=== PATIENT | male | born 1960 | race Caucasian/White ===

== ENCOUNTER → 2022-09-20 10:28 | Outpatient (CLI) | payer OTHER, SELFPAY ==
--- NOTE | ~2022-09-20 | XR_ITS ---
Left Knee Technique: AP, lateral, and sunrise views were obtained. Clinical History: Pain Findings: No fracture or dislocation is seen. Osseous alignment is anatomic. Mild tricompartmental de generative change noted. Soft tissues are unremarkable. No joint effusion is seen. Impression: Mild tricompartmental degenerative change. Reviewed, dictated and finalized at [facility]. Impression: Mild tricompartmental degenerative change.
== END ==
PROVIDERS: PCP Family Medicine; Visit Provider Family Medicine
DX: M17.12 Unilateral primary osteoarthritis, left knee (principal)
CPT/HCPCS: 73562

== ENCOUNTER 2022-10-30 03:42 | Day surgery (SDC) | payer OTHER, SELFPAY ==
[2022-10-17 13:42] VITALS: BMI 27.5
--- NOTE | 2022-10-30 10:57 | WPDANESEPPF ---
Anes - Initial Pre Proc Eval Procedure: Operation Date: 10/30/22 11:30 Proposed Procedures p Screening Colonoscopy - Jose Manuel Cordova MD Date/Time: 10/30/22 10:57 Surgeon: Jose Manuel Cordova MD Pre Op Diagnosis: neoplasm screening Patient Data Age: 62 Gender: M Height: 1.65 m Weight: 75 kg Allergies Allergy/AdvReac Type Severity Reaction Status Date / Time No Known Allergies Allergy Verified 10/17/22 13:42 Home Medications Medication Instructions Recorded Confirmed Type sodium,potassium,mag sulfates 17.5 See Rx Instructions PO .COMPLEX 09/24/22 10/10/22 Rx gram-3.13 gram-1.6 gram oral soln #354 mL (Suprep Bowel Prep Kit) lisinopril 10 mg tablet 10 mg PO DAILY #30 tabs 10/02/22 10/17/22 Rx Patient hx anesthesia problems: none Family hx anesthesia problems: none Results Review: All pre-operative results and documents have been reviewed as part of the pre-operative evaluation. [facility] Past Medical History Medical History History of closed head injury HTN (hypertension) Surgical History Surgical History History of arthroscopic knee surgery Family History Family History Father Diabetes mellitus Lung cancer Social History Social History Smoking status: Never smoker Alcohol intake: current Drinks per week: 10 Substance use: current Substance use type: marijuana Other substance usage details: edibles and smoking Lack of Transportation: No Lack of Food: Never True Current Housing: I Have Housing Concerned About Future Housing: No Difficulty Paying Gas/Electric Bills: No Difficulty Paying for Meds: No Currently Unemployed: No Education: Master's Degree or Higher Difficulty w/ Childcare or Family Care: No Living arrangements: with family Additional living arrangements comments: lives with girlfriend Occupation/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 Informed Consent: The patient's anesthetic plan and its attendant risks and benefits were discussed with the patient/family/POA. Questions were solicited and answers provided to the satisfaction of the patient/family/POA.
[2022-10-30 11:03] VITALS: BP 146/79; PULSE 62; RESP 18; TEMP 36.2; BMI 27.1
--- NOTE | 2022-10-30 11:13 | P.HP_ITS ---
History of Present Illness History of Present Illness Consent: Risks, benefits, and alternatives have been discussed and questions answered. Patient agrees to proceed with procedure. Chief complaint: neoplasm screening Narrative: Anderson Ness is a 62 year old male Presents for screening colonoscopy. Patient's current weight appetite and bowel movements are normal. Patient denies abdominal pain. He has had no bleeding. Family history noncontributory. Patient has never had previous colonoscopy. Review of Systems Review of Systems: Review of systems noncontributory. [facility] Past Medical History Medical History History of closed head injury HTN (hypertension) Surgical History Surgical History History of arthroscopic knee surgery Family History Family History Father Diabetes mellitus Lung cancer Social History Social History Smoking status: Never smoker Alcohol intake: current Drinks per week: 10 Substance use: current Substance use type: marijuana Other substance usage details: edibles and smoking Lack of Transportation: No Lack of Food: Never True Current Housing: I Have Housing Concerned About Future Housing: No Difficulty Paying Gas/Electric Bills: No Difficulty Paying for Meds: No Currently Unemployed: No Education: Master's Degree or Higher Difficulty w/ Childcare or Family Care: No Living arrangements: with family Additional living arrangements comments: lives with girlfriend 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 Vital signs stable. HEENT exam is unremarkable. Patient is anicteric. Lungs are clear to auscultation and percussion. Heart is without murmur or extra sounds. Abdomen bowel sounds are present soft nontender with no organomegaly. Digital external rectal exam is normal. Assessment and Plan Assessment and plan (1) Encounter for screening colonoscopy: Code(s): Z12.11 - Encounter for screening for malignant neoplasm of colon Status: Acute Assessment and Plan: Patient presents today for screening colonoscopy. He appears to be at average risk for colon polyps. Further recommendations may be given after endoscopy.
[2022-10-30] MEDS: LACTATED RINGERS 1,000 ML 150 ML IV CONT (11:18)
[2022-10-30 11:53] VITALS: BP 82/46; PULSE 70; RESP 22; O2SAT 98
[2022-10-30 12:03] VITALS: BP 97/57; PULSE 67; RESP 22; O2SAT 98
[2022-10-30 12:13] VITALS: BP 123/80; PULSE 60; RESP 15; O2SAT 100
== END 2022-10-30 12:26 | disposition home or self-care (01) ==
PROVIDERS: PCP Family Medicine; Visit Provider Internal Medicine Gastroenterology
PROC: 0DJD8ZZ Inspection of Lower Intestinal Tract, Via Natural or Artificial Opening Endoscopic (ICD-10-PCS; CPT 45378; principal; 2022-10-30 11:30)
DX: Z12.11 Encounter for screening for malignant neoplasm of colon (principal); D12.2 Benign neoplasm of ascending colon; D12.8 Benign neoplasm of rectum; K64.8 Other hemorrhoids; I10 Essential (primary) hypertension; F12.90 Cannabis use, unspecified, uncomplicated
CPT/HCPCS: 45385; 88305; 88342; J2704; J7120

== ENCOUNTER → 2022-12-06 10:54 | Outpatient (CLI) | payer OTHER, SELFPAY ==
--- NOTE | ~2022-12-06 | MR_ITS ---
EXAMINATION: MR knee LT wo con DATE: 12/06/2022 11:34 INDICATION: Unilateral primary osteoarthritis, left knee. Left knee pain. TECHNIQUE: Magnetic resonance imaging (MRI) of the left knee was performed without intravenous contra st. Sequences included axial PD-weighted FS FSE, coronal PD-weighted FSE and PD-weighted FS FSE, sagi ttal PD-weighted FSE, and sagittal T2-weighted FS FSE. COMPARISON: Left knee radiograph 09/20/2022 FINDINGS: Medial compartment: There is a radial tear of posterior horn of medial meniscus. There are areas of deep partial thicknes s cartilage loss of femoral condyle and tibial condyle. There is full-thickness cartilage loss of fem oral condyle involving the central and medial articular surface. Osteophytes are noted. Lateral compartment: Lateral meniscus is normal. There is cartilage surface irregularity of femoral condyle and tibial con dyle. Osteophytes are noted. Patellofemoral compartment: There is shallow partial-thickness cartilage loss of patellar medial facet. There is shallow partial- thickness cartilage loss of trochlea. Osteophytes are noted. Ligaments and tendons: Anterior cruciate ligament is normal. There is a partial tear of posterior cruciate ligament contrast by thickening and increased signal intensity. Medial collateral ligament and lateral collateral liga ment complex are normal. There is mild patellar tendinopathy. Fluid: There is a moderate-sized knee joint effusion. There is trace fluid in a Cox's cyst. There is mild prepatellar and superficial infrapatellar bursitis. IMPRESSION: 1. Severe chondrosis of medial compartment and mild chondrosis of lateral and patellofemoral compartm ents. 2. Tear of medial meniscus. 3. Partial tear of posterior cruciate ligament. 4. Moderate-sized knee joint effusion. Reviewed, dictated and finalized at location [facility]. IMPRESSION: 1. Severe chondrosis of medial compartment and mild chondrosis of lateral and p atellofemoral compartments. 2. Tear of medial meniscus. 3. Partial tear of posterior cruciate ligament. 4. Moderate-sized knee joint effusion.
== END ==
PROVIDERS: PCP Family Medicine; Visit Provider Nurse Practitioner
DX: M22.42 Chondromalacia patellae, left knee (principal); M25.462 Effusion, left knee; S83.522A Sprain of posterior cruciate ligament of left knee, initial encounter; S83.242A Other tear of medial meniscus, current injury, left knee, initial encounter
CPT/HCPCS: 73721

== ENCOUNTER 2024-04-13 11:56 | Outpatient (CLI) | payer OTHER, SELFPAY ==
--- NOTE | 2024-04-13 13:00 | ECG_ITS ---
Test Date: 2024-04-13 13:13:49 Measurements Intervals [place] Rate: 61 P: 11 SC: 174 QRS: -20 QRSD: 97 T: 13 QT: 398 QTc: 404 Interpretive Statements SINUS RHYTHM WARNING: DATA QUALITY MAY AFFECT INTERPRETATION No previous ECG available for comparison Electronically Signed On 04-14-2024 15:20:38 LEARNING DESIGNER by Funmilayo Day M.D.
[2024-04-13 13:49] LABS: Basophils Absolute Auto 0.1 K/mm3 (0.0-0.1); Basophils Percent Auto 0.9 % (0.2-1.2); Eosinophils Absolute Auto 0.2 K/mm3 (0-0.3); Eosinophils Percent Auto 2.8 % (0-4.4); Hematocrit 42.9 % (42.0-52.0); Hemoglobin 14.6 g/dL (14.0-18.0); Immature Granulocyte Absolute 0.02 K/mm3 (0.00-0.031); Immature Granulocyte Percent A 0.3 % (0-0.5); Mean Corpuscular Hemoglobin 30.5 pg (26-34); Mean Corpuscular Volume 89.6 fl (80-100); Mean Platelet Volume 10.2 fl (7.4-10.4); Monocytes Absolute Auto 0.8 K/mm3 (0.1-0.6); Monocytes Percent Auto 10.5 % (2.6-8.5); Neutrophils Absolute Auto 4.3 K/mm3 (1.3-6.7); Neutrophils Percent Auto 58.5 % (45.5-73.1); Platelet Count Result 314 k/mm3 (150-375); Red Blood Count 4.79 M/mm3 (4.6-6.20); Red Cell Distribution Width 12.6 % (11.5-14.5); White Blood Count 7.4 K/mm3 (4.5-10.0)
[2024-04-13 13:58] LABS: Albumin Level 4.6 g/dL (3.5-5.1); Anion Gap 5 mmol/L (4-12); Blood Urea Nitrogen 12 mg/dL (9-20); Calcium 9.4 mg/dL (8.4-10.2); Carbon Dioxide 28 mmol/L (22-30); Chloride 106 mmol/L (98-107); Estimated Glomerular Filt Rate > 60; Glucose 99 mg/dL (65-110); Sodium 139 mmol/L (137-145)
[2024-04-13 14:03] LABS: Urine Cotinine NEGATIVE
== END 2024-04-13 11:57 | disposition home or self-care (01) ==
LOC: ANHSURGERY 12:14
PROVIDERS: PCP Family Medicine; Visit Provider Orthopaedic Surgery
DX: Z01.818 Encounter for other preprocedural examination (principal); M17.12 Unilateral primary osteoarthritis, left knee; Z79.899 Other long term (current) drug therapy
CPT/HCPCS: 80048; 80307; 82040; 83036; 85025; 87081; 87181; 93005

== ENCOUNTER 2024-05-05 00:43 | Day surgery (SDC) | payer OTHER, SELFPAY ==
--- NOTE | 2024-04-13 11:58 | PC.NURSE ---
Report to the Outpatient Waiting Room, entrance under the green pavilion located off [facility], at time _6 am on date _05/05/24 . Planned Procedure Time: __7:30 am .? Time changes happen often and if your time is changed the preop area will call you the afternoon before. - You and your visitor will be asked to self-screen and do not enter if you have any COVID symptoms. Please call surgeon if you need to reschedule. - A mask is optional within the hospital at this time. Patients may have clear liquids (water, carbonated beverages, clear teas, apple juice) until 3 hours prior to surgery( 4:30 am) with a maximum of 20 ounces. - No food from midnight until time of surgery and no smoking. This includes no chewing gum, candy or mints. Take only the following medications with a SIP of water on the morning of surgery: ____NONE DO NOT STOP ANY OF YOUR OTHER PRESCRIPTION MEDICATIONS PRIOR TO SURGERY EXCEPT THE FOLLOWING Medications to discontinue per physician NONE Please no make-up, nail armenian, hairspray, perfume, deodorant, or body powder the day of surgery.? No jewelry (including any body piercings) or valuables the day of surgery, leave them at home.? Please take a shower or bath the night before, or the morning of, surgery with an antibacterial soap.? Wear comfortable, loose fitting clothing.? Children are encouraged to wear pajamas. - Jewelry must be removed prior to entering the operating room.? Rings and piercings that are not removed may be cut off. - The hospital will not accept responsibility for valuables.? - Please leave all valuables, including medications, at home the day of surgery. If you are going home after surgery, a licensed compactor driver must drive you home.? - NO public transportation without another adult if you receive anesthesia. - We recommend that an adult stay with you for 24 hours following discharge. - We also recommend that you do not drive, make important decision, drink alcoholic beverages, or take any drugs that were not prescribed by your health care provider for at least 24 hours after your discharge time. Follow any additional instructions given to you from your surgeon. verbal and written instructions given to __PATIENT and asked if any additional questions and then verbalized understanding. Patient advised to call surgeon office or pre surgery nurse liaison [phone] if any additional questions.
[2024-04-13 12:19] VITALS: BMI 30.4
[2024-04-13 12:58] VITALS: BP 144/85; PULSE 66; RESP 18; TEMP 37.2; O2SAT 100
--- NOTE | 2024-05-04 11:18 | PM.IMHP ---
H&P: HPI History of Present Illness Date/Time: 05/04/24 11:18 Chief Complaint: Left knee DJD Narrative: 61-year-old male who presents today for a left total knee arthroplasty. Patient has been having symptoms in the knee for several years. He had cortisone injection in January of last year which did give him some benefit. He was taking meloxicam 15 mg daily but noticed and elevation his blood pressure and decided to stop taking the meloxicam. Does take Tylenol for pain. Patient has moderately severe medial compartment osteoarthritis in the left knee. He feels that he is having significant symptoms on a regular basis and would rather proceed with total knee arthroplasty at this point rather than continue nonsurgical treatment. Review of Systems Review of Systems: All systems reviewed & are unremarkable except as noted in HPI and below PMFSH Past Medical History Medical History HTN (hypertension) History of closed head injury Surgical History Surgical History History of arthroscopic knee surgery Family History Family History Father Diabetes mellitus Lung cancer Sibling No problems noted. Sibling , OD No problems noted. Social History Social History Smoking status: Never smoker Second hand tobacco smoke exposure: No Additional smoking assessment comments: DENIES ANY FORM OF TOBACCO USE Alcohol intake: current Drinks per week: 10 Alcohol use details: BEER,WINE, MIXED DRINKS Substance use: current Substance use type: marijuana Other substance usage details: edibles and smoking Last use: 04/12/24 Current Housing: Decline to Answer Concerned About Future Housing: Decline to Answer Difficulty Paying Gas/Electric Bills: Decline to Answer Difficulty Paying for Meds: Decline to Answer Currently Unemployed: Decline to Answer Education: Decline to Answer Difficulty w/ Childcare or Family Care: Decline to Answer Living arrangements: alone Occupation/Education: retired 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 He is 5 ft 4 177 lb BMI is 30.4. He walks with a slight limp. Range of motion left knee is from 5-100 degrees. Hip range of motion is full without discomfort. There is no effusion in the knee. Normal stability in the knee. Moderate tenderness over the medial joint line to palpation. Negative Stinchfield maneuver. Normal quad strength. There is no edema in lower extremities. 2+ dorsalis pedis and posterior tibial artery pulse palpable. Skin is all normal. Resp: Auscultation: clear to auscultation bilaterally Cardio: Rate: regular rate Rhythm: regular rhythm Assessment and Plan Assessment and plan (1) Primary osteoarthritis of left knee: Code(s): M17.12 - Unilateral primary osteoarthritis, left knee Status: Acute Assessment and Plan: 61-year-old male who has moderately severe medial compartment osteoarthritis left knee. He has symptoms on a daily basis. He did get some benefit from the cortisone injection. Anti-inflammatories are affecting his blood pressure and therefore he has stopped taking them. This point feels he is ready proceed with total knee arthroplasty rather than continue nonsurgical treatment. Surgical procedures well as risks and complications were discussed in detail and all questions were answered proceed. He will see his primary care doctor for pre-surgical clearance. Hemoglobin preoperatively is 14.6 and platelets were 314. Chem panel was all within normal limits creatinine 0.70. Nasal swab did grow oxacillin sensitive Staph aureus and he has been in the colonizing.
[2024-05-05] VITALS (14 sets, daily range): BP systolic 104–154; BP diastolic 64–92; PULSE 68–96; RESP 10–20; TEMP 36.4–37.1; O2SAT 94–100
--- NOTE | ~2024-05-05 | XR_ITS ---
EXAMINATION: [id number] DATE: 05/05/2024 12:39 INDICATION: Left knee arthroplasty. Postop. TECHNIQUE: 2 views of left knee were obtained. COMPARISON: Left knee radiographs 02/03/2024 FINDINGS: There is a total left knee arthroplasty without patellar resurfacing in near-anatomic align ment. No fracture. There is gas in the knee joint and soft tissues, consistent with recent surgery. IMPRESSION: 1. Total left knee arthroplasty in near-anatomic alignment. Reviewed, dictated and finalized at location A. [employer]
[2024-05-05] MEDS: ACETAMINOPHEN 500 MG TABLET 1000 MG PO (06:50)
[2024-05-05] MEDS: LACTATED RINGERS 1,000 ML 30 ML IV CONT ×2 (06:55→12:25)
[2024-05-05] MEDS: TRANEXAMIC ACID 1,000MG/ISO100 1,000 MG/100 ML BAG 200 MG IVPB (06:55)
[2024-05-05] MEDS: VANCOMYCIN 1,250 MG/NS 250 ML BAG 166.67 MG IVPB (07:12)
--- NOTE | 2024-05-05 08:02 | WPDHPUPDATE1 ---
History and Physical Update Update Date/Time: 05/05/24 08:02 History and Physical has been reviewed, including an updated exam of the patient. There are NO changes in the patient's condition. Risks, benefits, and alternatives have been discussed and questions answered. Patient agrees to proceed with procedure.
--- NOTE | 2024-05-05 08:22 | P.PNAN_ITS ---
Anes - Initial Pre Proc Eval Procedure: Operation Date: 05/05/24 08:30 Proposed Procedures p Left Total Knee Arthroplasty - Rosalio Frazier MD Date/Time: 05/05/24 08:22 Surgeon: Rosalio Frazier MD Pre Op Diagnosis: oa left knee Patient Data Age: 63 Gender: M Height: 1.63 m Weight: 79.5 kg Last Vital Signs Temp 97.9 F 05/05/24 06:41 Pulse 77 05/05/24 06:41 Resp 18 05/05/24 06:41 BP 137/82 05/05/24 06:41 Pulse Ox 99 05/05/24 06:41 O2 Del Method Room Air 05/05/24 06:41 Allergies Allergy/AdvReac Type Severity Reaction Status Date / Time No Known Allergies Allergy Verified 05/05/24 07:05 Home Medications ?Medication ?Instructions ?Recorded ?Confirmed ?Type lisinopril 40 mg tablet 40 mg PO DAILY #30 tabs 03/23/24 05/05/24 Rx Laboratory Tests 05/05/24 06:44 Blood Type O Positive Antibody Screen Negative Patient hx anesthesia problems: none Family hx anesthesia problems: none Results Review: All pre-operative results and documents have been reviewed as part of the pre- operative evaluation. [facility] Past Medical History Medical History HTN (hypertension) History of closed head injury Surgical History Surgical History History of arthroscopic knee surgery Family History Family History Father Diabetes mellitus Lung cancer Sibling No problems noted. Sibling , OD No problems noted. Social History Social History Smoking status: Never smoker Second hand tobacco smoke exposure: No Additional smoking assessment comments: DENIES ANY FORM OF TOBACCO USE Alcohol intake: current Drinks per week: 10 Alcohol use details: BEER,WINE, MIXED DRINKS Substance use: current Substance use type: marijuana Other substance usage details: edibles and smoking Last use: 04/12/24 Current Housing: Decline to Answer Concerned About Future Housing: Decline to Answer Difficulty Paying Gas/Electric Bills: Decline to Answer Difficulty Paying for Meds: Decline to Answer Currently Unemployed: Decline to Answer Education: Decline to Answer Difficulty w/ Childcare or Family Care: Decline to Answer Living arrangements: alone Occupation/Education: retired 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 Informed Consent: The patient's anesthetic plan and its attendant risks and benefits were discussed with the patient/family/POA. Questions were solicited and answers provided to the satisfaction of the patient/family/POA.
[2024-05-05] MEDS: ceFAZolin 2 GM/D5W 50 ML 2 GM/50 ML BAG IVPB ×2 (08:30→17:23)
[2024-05-05] MEDS: ceFAZolin SODIUM 1 GM VIAL 3 GM IRRIGATION (09:14)
[2024-05-05] MEDS: SODIUM CHLORIDE 0.9% IV 37.7 ML, MORPHINE SULFATE INJ (*CRX) 2 MG, ROPivacaine HCL 1% 2... INFILTRATE (09:33)
[2024-05-05] MEDS: ceFAZolin SODIUM 1 GM VIAL 2 GM IV PUSH (11:23)
[2024-05-05] MEDS: TRANEXAMIC ACID 1,000 MG/10 ML AMPUL 1000 MG IV PUSH (11:24)
[2024-05-05] MEDS: KETOROLAC 15 MG/ML VIAL (*BKC) IV PUSH ×2 (11:26→17:24)
--- NOTE | 2024-05-05 12:20 | P.OP_ITS ---
Procedure Note - Detailed Date of Procedure 05/05/24 Pre-op Diagnosis oa left knee Post-op Diagnosis Same Procedure Performed Left total knee arthroplasty Surgeon Rosalio Frazier MD Ergonomics Technician Fiona Anesthesia General Description of Procedure patient was brought to the operating room and general anesthesia was administered. He received 2 g Ancef weight based vancomycin 1 g of TXA preoperatively. The left knee was prepped draped usual fashion. Under anesthesia I can flex him to 135 but he had a fixed 8 degree flexion contracture. Limb was exsanguinated tourniquet elevated to 250 mmHg. A 7 in longitudinal midline incision was made and a standard parapatellar arthrotomy utilized. Infrapatellar it is fat pad partially excised. Quadriceps synovectomy performed. Anteromedial osteophytes removed from the tibial plateau. The patellar articular cartilage was normal. There were small osteophytes inferiorly and medially which were trimmed and a minimal lateral facetectomy was performed. I felt the patella was appropriate for non resurfacing. A guide lourdes was inserted on femoral canal after aspiration of canal contents using the 5 degree valgus cutting bushing 9 mm of bone removed the distal femur. Next the tibial plateau was cut. We attempted to make a skim cut off the low point of the medial tibial plateau which removed about 10 mm laterally. He had a fairly prominent varus slope to the tibial plateau. Meniscal remnants were excised and the PCL recessed. Flexion gap measured 11 mm laterally in 7 mm medially and I did not feel we had enough gap for 10 insert. An additional mm bone was removed from the tibial plateau at this time. This gave us 8 mm flexion gap medially 12 laterally and alignment of the cut was confirmed to be perpendicular to the axis of the On the sagittal plane and in about 1 degree of varus on the coronal plane. Femoral sizing guide was applied to distal femur set at 5? of external rotation which matched [place] line. Posterior referencing pinholes were placed and the femur was cut to the size 62.5 vanguard. This fit line to line on the anterior cortex and line to line medial to lateral. The 10 CR insert was inserted at 90? of flexion and we had symmetric play of 1-2 mm medially laterally. The knee lacked about 20? of extension and was extremely tight medially with some play laterally. Medial tibial osteophyte was removed extending along the posteromedial aspect of the tibia but no capsular release performed yet. Posterior capsule was released from the distal femur because of his preop flexion contracture. The tibia was sized to the vanguard 71 which fit line to line posterolateral to anteromedial at proper rotation. The distal femoral alignment was assessed with the 5 degree wing and intramedullary lourdes and I felt that we were at about 5.5? of valgus. I elected to remove 2 mm of bone from the distal medial femoral condyle 1 from the lateral side. The transition step was smooth and this placed at a us at about 4.5? of valgus. There were no posterior femoral osteophytes to remove this time. We then trialed with the 10 insert.The knee now lacked about 5? of extension wiith no play medially with valgus stress and 2 mm laterally. There was appropriate anterior posterior stability 90? with a mm of medial and lateral opening at 90?. Therefore posteromedial capsular release was performed off the tibial plateau removing bone to the level of the tray. On retrialing, the knee came out to 3? from full extension now with between 1 and 2 mm of medial opening to valgus stress at 3?. Therefore, I elected to revisit the posterior capsule release and complete release was achieved from the medial head of the gastrocnemius tendon to the lateral head. With this done the knee had just a barely positive bounce trialing with the 10 insert. However with the arthrotomy towel clipped there was 3 or 4? of residual flexion and no play medially on valgus stress. Therefore an additional 1 mm bone was removed from the distal femur both medially and laterally. For 4.5? of anatomic axis valgus was confirmed. On retrialing the knee came out to full extension with negative bounce. There was now 2 mm of medial opening 3 mm of lateral opening. With the arthrotomy towel clipped there was 1 mm of medial opening on valgus stress and perhaps 1 degree of residual lack of flexion under the weight of gravity and I could easily extend him all the way straight with gentle pressure. there was normal varus valgus stability in all positions at this time. Range of motion so it central patellar tracking. Lug holes were drilled for femoral component. we had put the tourniquet down at 88 minutes and at this time the limb was exsanguinated again and tourniquet elevated to 200 mmHg. Step drill was used in the distal femoral and proximal tibial bone surfaces for cement interdigitation. Two batches of methylmethacrylate were mixed 1 with gentamicin powder cemented medial with the medially applied the 71 tibia and the 62.5 left CR femoral components. Cement applied the tibial plateau pressurized tibial component placed a cement applied the femur the femoral component fully seated knee brought into extension with the 11 mm 5 1 insert for pressurization of the cement. Tourniquet was released. Total tourniquet times approximately 110 minutes. After cement curing, excess cement was sought for removed hemostasis was achieved. We trialed with the 10 insert and found the same stability findings as above and the 10 insert was placed without difficulty locked with a locking pin full extension with negative bounce 2 mm medial wall 3 mm lateral opening in extension. [place] flexion to 135. Local anesthetic cocktail was injected into the periarticular soft tissues. Arthrotomy was closed with 2. Vicryl is a 1. Unidirectional barbed Stratafix suture. At this point there was barely positive bounce and in extension the knee opened up 1 mm Medially. Skin was closed with 2 subcutaneous Vicryl and 3-0 subcuticular Monocryl and glue. EBL 300 cc fluid is 2 additional g of Ancef given time wound closure 1 of TXA. Tolerated the procedure well was transferred postop recovery room in stable condition. [facility] Billing Surgery - Charge Forward: Surgery Billing ( Left total knee arthroplasty)
--- NOTE | 2024-05-05 12:28 | PM.OP ---
Procedure Note - Brief Procedure Note - Brief Date of procedure: 05/05/24 oa left knee Procedure performed: Left total knee arthroplasty Surgeon: CADY Cox Findings: 63-year-old male who underwent left total knee arthroplasty on 05/05. I was involved in the procedure including positioning the patient on the OR table in 1st assisting through the time surgery. Total time spent was 3-1/2 hours
[2024-05-05] MEDS: fentaNYL CITRATE INJ (*CRX) 100 MCG/2 ML VIAL 25 MCG IV PUSH (13:48)
[2024-05-05] MEDS: SENNA/DOCUSATE SODIUM TABLET 2 TAB PO (17:23)
[2024-05-05] MEDS: ACETAMINOPHEN 325 MG TABLET 650 MG PO ×2 (17:23→21:48)
[2024-05-05] MEDS: oxyCODONE HCL (*CRX) 5 MG TAB IR PO ×2 (17:24→21:48)
[2024-05-05] MEDS: VANCOMYCIN 1,000 MG/NS 250 ML 1,000 MG/250 ML BAG 250 MG IVPB (21:48)
[2024-05-05] MEDS: FAMOTIDINE 20 MG TABLET PO (21:48)
[2024-05-06] MEDS: KETOROLAC 15 MG/ML VIAL (*BKC) IV PUSH (00:40)
[2024-05-06] MEDS: ceFAZolin 2 GM/D5W 50 ML 2 GM/50 ML BAG IVPB ×2 (00:41→08:36)
[2024-05-06] MEDS: oxyCODONE HCL (*CRX) 5 MG TAB IR PO ×4 (01:15→12:19)
[2024-05-06] MEDS: ACETAMINOPHEN 325 MG TABLET 650 MG PO ×3 (01:15→08:31)
[2024-05-06 03:55] VITALS: BP 108/68; PULSE 70; RESP 20; TEMP 37; O2SAT 97
[2024-05-06 06:59] LABS: Basophils Percent Auto 0.3 % (0.2-1.2); Eosinophils Percent Auto 0.2 % (0-4.4); Hematocrit 32.2 % (42.0-52.0); Hemoglobin 10.6 g/dL (14.0-18.0); Immature Granulocyte Absolute 0.03 K/mm3 (0.00-0.031); Immature Granulocyte Percent A 0.3 % (0-0.5); Lymphocytes Absolute Auto 2.47 K/mm3 (0.9-3.2); Lymphocytes Percent Auto 22.4 % (18.3-44.2); Mean Corpuscular HGB Conc 32.9 g/dl (32-36); Mean Corpuscular Volume 91.2 fl (80-100); Mean Platelet Volume 10.3 fl (7.4-10.4); Monocytes Absolute Auto 1.6 K/mm3 (0.1-0.6); Monocytes Percent Auto 14.8 % (2.6-8.5); Neutrophils Absolute Auto 6.9 K/mm3 (1.3-6.7); Platelet Count Result 231 k/mm3 (150-375); Red Blood Count 3.53 M/mm3 (4.6-6.20); Red Cell Distribution Width 12.7 % (11.5-14.5)
[2024-05-06 07:16] LABS: Anion Gap 6 mmol/L (4-12); Blood Urea Nitrogen 12 mg/dL (9-20); Calcium 8.5 mg/dL (8.4-10.2); Carbon Dioxide 27 mmol/L (22-30); Chloride 105 mmol/L (98-107); Estimated CRCL calculation 91 ml/min; Estimated Glomerular Filt Rate > 60; Glucose 99 mg/dL (65-110); Potassium 3.9 mmol/L (3.4-5.0); Sodium 138 mmol/L (137-145)
--- NOTE | 2024-05-06 07:31 | P.PNOP_ITS ---
Subjective Subjective Date/Time Seen: 05/06/24 07:31 Interval history: Postop day 1 patient is alert. He is afebrile vital signs are stable. Dressing is dry and intact. He was up walking yesterday with physical therapy and was comfortable. Pain remains well tolerated this morning. Neurovascularly he is intact. Morning labs are noted. Will plan have the patient with therapy this morning and if he continues to do to be discharged home late this morning Objective Data Vital Signs Vital Signs: Vital Signs - 24 hr 05/05/24 12:25 05/05/24 12:40 05/05/24 12:55 Temperature 98.7 F Pulse Rate 96 88 85 Respiratory Rate 10 L 14 14 Blood Pressure 146/80 H 154/78 H 154/92 H Pulse Oximetry 100 100 100 Oxygen Delivery Simple Face Mask Simple Face Mask Room Air Oxygen Flow Rate 10 10 05/05/24 13:10 05/05/24 13:25 05/05/24 13:40 Temperature Pulse Rate 86 87 83 Respiratory Rate 12 18 16 Blood Pressure 149/82 H 142/81 H 148/83 H Pulse Oximetry 98 99 97 Oxygen Delivery Room Air Room Air Room Air Oxygen Flow Rate 05/05/24 13:55 05/05/24 14:10 05/05/24 14:25 Temperature 98.5 F 98.6 F Pulse Rate 84 80 76 Respiratory Rate 16 18 17 Blood Pressure 141/83 H 136/77 130/76 Pulse Oximetry 97 95 95 Oxygen Delivery Room Air Oxygen Flow Rate 05/05/24 14:55 05/05/24 14:58 05/05/24 15:28 Temperature 97.6 F Pulse Rate 76 Respiratory Rate 17 Blood Pressure 133/75 Pulse Oximetry 94 Oxygen Delivery Room Air Room Air Oxygen Flow Rate 05/05/24 15:55 05/05/24 17:08 05/05/24 19:55 Temperature 97.6 F 98.7 F Pulse Rate 74 83 Respiratory Rate 17 20 Blood Pressure 130/78 119/71 Pulse Oximetry 99 97 Oxygen Delivery Room Air Oxygen Flow Rate 05/05/24 20:00 05/05/24 23:55 05/06/24 03:55 Temperature 98.1 F 98.6 F Pulse Rate 68 70 Respiratory Rate 20 20 Blood Pressure 104/64 108/68 Pulse Oximetry 97 97 Oxygen Delivery Room Air Oxygen Flow Rate Intake/Output Intake/Output: Intake & Output 05/03/24 05/04/24 05/05/24 05/06/24 23:59 23:59 23:59 23:59 Intake Total 637 150 Balance 637 150 Meds/Results Medications: Active Medications Generic Name Dose Route Start Last Admin Trade Name Freq PRN Reason Stop Dose Admin Acetaminophen 650 mg 05/05/24 14:00 05/06/24 05:38 Acetaminophen 325 Mg Tablet PO 650 mg Q4H HECTOR Administration Apixaban 2.5 mg 05/06/24 09:00 Apixaban 2.5 Mg Tablet PO 05/17/24 21:01 Q12HR HECTOR Celecoxib 200 mg 05/06/24 08:00 Celecoxib 200 Mg Capsule PO DAILY@0800 HECTOR Cephalexin HCl 500 mg 05/06/24 12:00 Cephalexin 500 Mg Capsule PO Q6HR HECTOR Diphenhydramine HCl 25 mg 05/05/24 14:10 Diphenhydramine Hcl Inj 50 Mg/Ml Vial IV PUSH Q6H PRN Itching Famotidine 20 mg 05/05/24 21:00 05/05/24 21:48 Famotidine 20 Mg Tablet PO 20 mg Q12HR HECTOR Administration Cefazolin Sodium 2 gm in 50 mls @ 100 mls/hr 05/05/24 17:00 05/06/24 00:41 Ancef 2 Gm/D5w 50 Ml IVPB 05/06/24 09:29 100 mls/hr Q8H HECTOR Administration Vancomycin HCl 1,000 mg in 250 mls @ 250 mls/hr 05/05/24 20:00 05/05/24 21:48 Vancomycin 1,000 Mg/Ns 250 Ml IVPB 05/06/24 08:59 250 mls/hr Q12H HECTOR Administration Morphine Sulfate 2 mg 05/05/24 14:10 Morphine Sulfate (*Crx) 2 Mg/Ml Inj IV PUSH Q2H PRN Breakthrough Pain Rated 4-6 or NPO Naloxone HCl 0.1 mg 05/05/24 14:10 Naloxone Hcl 0.4 Mg/Ml Vial IV PUSH Q2M PRN Opiate Reversal Ondansetron HCl 4 mg 05/05/24 14:10 Ondansetron Inj 4 Mg/2 Ml Vial IV PUSH Q4H PRN Nausea And Vomiting Oxycodone HCl 5 mg 05/05/24 14:00 05/06/24 05:39 Oxycodone Hcl (*Crx) 5 Mg Tab Ir PO 5 mg Q4H HECTOR Administration Oxycodone HCl 5 mg 05/05/24 14:10 Oxycodone Hcl (*Crx) 5 Mg Tab Ir PO Q4H PRN Pain Rated 7-10 Polyethylene Glycol 17 gm 05/06/24 09:00 Polyethylene Glycol 3350 17 Gm Powd.Pack PO QAM HECTOR Senna/Docusate Sodium 2 tab 05/05/24 17:00 05/05/24 17:23 Senna/Docusate Sodium Tablet PO 2 tab BID HECTOR Administration Radiology Results: ITS Impressions Knee X-Ray 05/05/24 12:45 IMPRESSION: 1. Total left knee arthroplasty in near-anatomic alignment. Labs Labs: Laboratory Results - last 24 hr 05/05/24 05/06/24 06:44 06:50 WBC 11.0 H RBC 3.53 L Hgb 10.6 L D Hct 32.2 L MCV 91.2 MCH 30.0 MCHC 32.9 RDW 12.7 Plt Count 231 MPV 10.3 Immature Gran % (Auto) 0.3 Neut % (Auto) 62.0 Lymph % (Auto) 22.4 [place] % (Auto) 14.8 H Eos % (Auto) 0.2 Baso % (Auto) 0.3 Lymph # (Auto) 2.47 [place] # (Auto) 1.6 H Eos # (Auto) 0.0 Baso # (Auto) 0.0 Abs Immat Gran (auto) 0.03 Absolute Neuts (auto) 6.9 H Absolute Nucleated RBC 0.000 Nucleated RBC % 0.0 Sodium 138 Potassium 3.9 Chloride 105 Carbon Dioxide 27 Anion Gap 6 BUN 12 Creatinine 0.69 L Estim Creat Clear Calc 91 Estimated GFR > 60 Glucose 99 Calcium 8.5 Antibody Screen Negative
--- NOTE | 2024-05-06 07:35 | PM.DS ---
DS: Admitting Diagnosis Discharge Date 05/06 Admitting Diagnosis Left knee DJD DS: Discharge Diagnosis Discharge Diagnosis (1) Primary osteoarthritis of left knee: Code(s): M17.12 - Unilateral primary osteoarthritis, left knee Status: Acute DS: Summary Hospital Course Hospital Course: 63-year-old male who underwent left total knee arthroplasty on 05/05. Underwent the procedure without complications. Postoperatively he has been afebrile vital signs are stable. Was up walking with physical therapy the day of surgery. Pain is well controlled. He is on scheduled Tylenol every 4 hours and oxycodone 5 mg. He is also on Celebrex 200 mg a day. He is on Eliquis for DVT prophylaxis. Postop day 1 patient was alert. Dressing was dry and intact. Neurovascularly was intact. He is able do a straight leg raise in the bed. He will be discharged home on 05/06. Patient is stable. He will go home with a 10 day course of Keflex due to his nasal swab going oxacillin sensitive Staph aureus. He will also go home with Senokot and MiraLax. Patient had a history increased blood pressure with diclofenac. He is going to be on the Celebrex and is going to monitor his blood pressure at home while taking this if there is any changes he will contact his primary care doctor. Patient was advised when he does go home to keep the leg elevated prevent swelling but do his exercises on an hourly basis. He has any questions or concerns he is to call the office. Time Spent with Patient Time attestation: Total time spent providing and/or coordinating discharge services: DS: Data Data Completed and Pending Labs on day of discharge: Labs from last 24 hours 05/06/24 05/05/24 06:50 06:44 WBC 11.0 H RBC 3.53 L Hgb 10.6 L D Hct 32.2 L MCV 91.2 MCH 30.0 MCHC 32.9 RDW 12.7 Plt Count 231 MPV 10.3 Immature Gran % (Auto) 0.3 Neut % (Auto) 62.0 Lymph % (Auto) 22.4 [place] % (Auto) 14.8 H Eos % (Auto) 0.2 Baso % (Auto) 0.3 Lymph # (Auto) 2.47 [place] # (Auto) 1.6 H Eos # (Auto) 0.0 Baso # (Auto) 0.0 Abs Immat Gran (auto) 0.03 Absolute Neuts (auto) 6.9 H Absolute Nucleated RBC 0.000 Nucleated RBC % 0.0 Sodium 138 Potassium 3.9 Chloride 105 Carbon Dioxide 27 Anion Gap 6 BUN 12 Creatinine 0.69 L Estim Creat Clear Calc 91 Estimated GFR > 60 Glucose 99 Calcium 8.5 Antibody Screen Negative Discharge Plan Discharge Patient Disposition: Home, Self-Care Discharge Instructions: ROSALIO FRAZIER M.D [facility] [address] [address] [place] [address] POST-OPERATIVE DISCHARGE INSTRUCTIONS TOTAL KNEE ARTHROPLASTY 1. When resting, do not rest in the chair.When resting, lie on your back, with back flat on the couch or bed, with leg elevated above heart to minimize swelling. You may put a pillow under your head. . Significant swelling could indicate a blood clot and if this occurs call the office (or go to the ER) to have a venous ultrasound. Therefore, do not rest in a chair. 2. At least five times a day spend several minutes stretching your knee into flexion while sitting in the chair and also stretching your knee out straight The abilities to bend your knee fully and straighten your knee fully are two most important knee functions to focus on during your recovery. 3. It is ok to sit in chair to eat, use the toilet and receive a guest and to do your stretching exercises, but, sitting in a chair will cause your leg to swell. Therefore, avoid additional time sitting in the chair. and don't rest in the chair. 4. Wound Care: Nursing will give you an additional Mepilex/Aquacell dressing at the time of discharge. Patient to remove the dressing and apply a new Mepilex/Aquacell dressing at home 7 days after surgery and leave the dressing on until seen in office. It is normal to see a small amount of blood on the silver pad of the Mepilex/Aquacell dressing. Its designed to hold small spots of blood. However, if the blood reaches the edge of the pad up to the boarder of the clear membrane that surrounds the pad, the pad is saturated and the Mepilex/Aqucell dressing should be removed and a new Mepilex/Aquacell dressing should be applied. 5. May shower with a Mepilex/Aquacell dressing in place.The water will run off the dressing. 6. Unless you are told otherwise, you may put full weight on your operated leg. Use a walker for balance and practice walking as normally as you can, ideally for a few minutes every hour while you are awake. 7. I would advise against putting ice packs on your knee incision. Ice constricts blood flow which can impar healing of the knee incision. IMPORTANT: Remember not to sit in the chair for more than 30 minutes at a time. As a rule, during the first 14 days after surgery, only sit in the chair to work on the chair knee bending stretch exercise, for meals or for use of the restroom. Sitting in the chair promotes significant swelling in the knee and leg which will make your knee stiff and more painful and which simulates having a blood clot in the veins of the leg. If this type of significant diffuse swelling occurs, an ultrasound at the hospital will be necessary to rule out a blood clot. Be up walking around with the walker for a few minutes every hour while awake and then rest laying on your back on the couch or in bed with your leg elevated on cushions or pillows. Do not rest in the chair. Patient Language: Ukrainian Stand Alone Forms: General Discharge Instructions Follow-up/Referrals: Rosalio Frazier MD [Physician] - Keep Reg. Scheduled Appt. Discharge Medications: New acetaminophen 325 mg Tablet 650 mg PO Q4H Qty: 90 0RF celecoxib [Celebrex] 200 mg Capsule 200 mg PO DAILY@0800 Qty: 60 0RF sennosides-docusate sodium [Senokot-S] 8.6-50 mg Tablet 2 tab-cap PO BID Qty: 60 0RF cephalexin 500 mg Capsule 500 mg PO Q6HR Qty: 40 0RF Eliquis 2.5 mg Tablet 2.5 mg PO Q12HR Qty: 28 0RF polyethylene glycol 3350 [Miralax] 17 gram Powder In Packet 17 g PO QAM Qty: 30 0RF oxycodone 5 mg Tablet 5 mg PO Q4H PRN (Reason: pain) Qty: 40 0RF Continued lisinopril 40 mg tablet 40 mg PO DAILY Qty: 30 2RF
[2024-05-06 07:55] VITALS: BP 112/65; PULSE 71; RESP 18; TEMP 36.6; O2SAT 99
[2024-05-06] MEDS: SENNA/DOCUSATE SODIUM TABLET 2 TAB PO (08:30)
[2024-05-06] MEDS: CELECOXIB 200 MG CAPSULE PO (08:30)
[2024-05-06] MEDS: FAMOTIDINE 20 MG TABLET PO (08:31)
[2024-05-06] MEDS: APIXABAN 2.5 MG TABLET PO (08:31)
[2024-05-06] MEDS: VANCOMYCIN 1,000 MG/NS 250 ML 1,000 MG/250 ML BAG 250 MG IVPB (08:36)
--- NOTE | 2024-05-06 10:43 | P.PNAN_ITS ---
Anes - Prog Note Post-Op Date/Time: 05/06/24 10:43 Cardiovascular status: normal Respiratory status: normal Airway patency: baseline Mental status: baseline Post-Op hydration status: normal Vital Signs: Last Vital Signs Temp 97.8 F 05/06/24 07:55 Pulse 71 05/06/24 07:55 Resp 18 05/06/24 07:55 BP 112/65 05/06/24 07:55 Pulse Ox 99 05/06/24 07:55 O2 Del Method Room Air 05/05/24 20:00 O2 Flow Rate 10 05/05/24 12:40 Pain Score (VAS): 0/10 I/O: Intake & Output 05/05/24 05/06/24 05/06/24 23:59 07:59 15:59 Intake Total 537 200 240 Balance 537 200 240 Laboratory Tests 05/06/24 06:50 05/06/24 06:50 05/06/24 06:50 WBC 11.0 H RBC 3.53 L Hgb 10.6 L D Hct 32.2 L MCV 91.2 MCH 30.0 MCHC 32.9 RDW 12.7 Plt Count 231 MPV 10.3 Immature Gran % (Auto) 0.3 Neut % (Auto) 62.0 Lymph % (Auto) 22.4 [place] % (Auto) 14.8 H Eos % (Auto) 0.2 Baso % (Auto) 0.3 Lymph # (Auto) 2.47 [place] # (Auto) 1.6 H Eos # (Auto) 0.0 Baso # (Auto) 0.0 Abs Immat Gran (auto) 0.03 Absolute Neuts (auto) 6.9 H Absolute Nucleated RBC 0.000 Nucleated RBC % 0.0 Sodium 138 Potassium 3.9 Chloride 105 Carbon Dioxide 27 Anion Gap 6 BUN 12 Creatinine 0.69 L Estim Creat Clear Calc 91 Estimated GFR > 60 Glucose 99 Calcium 8.5 Post-procedural complaints: none Patient Feedback: Patient satisfied with anesthetic care.
[2024-05-06] MEDS: polyethylene glycoL 3350 17 GM POWD.PACK PO (12:00)
[2024-05-06] MEDS: CEPHALEXIN 500 MG CAPSULE PO (12:19)
--- OUTSIDE RECORDS SUMMARY | 2024-05-12 04:20 | XMS_ITS | Data Portability ---
Author Organization [place] [facility], Main Office Address [address] [place] [address] Care Team Providers Care Trestle Builder Name Role Phone JANETH STRICKLAND Primary Care Provider JANETH STRICKLAND Referring Provider [phone] Assessment Encounter Date Assessment Date Assessment LastModified by Organization Details LastModified Time 12/13/2022 12/13/2022 Impression: Patient has moderately severe medial compartment osteoarthritis left knee on the PA flexion Stork view which shows narrowing of medial joint space to about 1 mm. On the AP Stork view is joint spaces about 3 mm. He has pronounced loss of range of motion which has not substantially improved with physical therapy I think that his stiffness is due to mechanical incongruity at the knee joint is not likely to be overcome with further therapy. I have discussed with him that the surgical procedure that would be considered if he could not be improved with non operative strategies would be a total knee replacement. I think that is range of motion is too poor for a partial knee replacement to be very successful particularly the flexion contracture. We have discussed that at 62 years of age he has had a little bit higher risk for having failure of his knee replacement due to wear that necessitates revision surgery. However, if he cannot be improved with non operative strategies, he is limited enough that he would want to take that risk and proceed with knee replacement. He has not tried nonsteroidal anti-inflammatory medications. he denies any history of peptic ulcer disease, liver problems, or kidney problems but does note that he did have an elevated bilirubin level and we requested the testing that he had done on 09/13/2022 3 months ago which showed bilirubin of 2.4. Bilirubin in the urine was negative. ALT, AST, and alk-phos were within normal limits. I have discussed with him that the most effective nonsteroidal anti-inflammatory medication is diclofenac but it is metabolized by the liver and if he has underlying liver disease it would be best to choose a different 1. He states that he has cut back on his daily Alcohol consumption . I would be reasonable to check a new CMP. In the meantime I have prescribed meloxicam 15 mg daily. I have given him instruction she describing possible side effects of anti-inflammatory medication. I will see him back in 4 weeks assess his progress. If he gets excellent relief from meloxicam we would continue with that for the time being if not we could consider diclofenac if his bilirubin has returned to normal. Failing these, I would offer him total knee replacement. 45 minutes were spent in total care this patient more than half the time spent in ixdm-rb-achm care. [email or web address] Not available 12/13/2022 14:31:02 01/21/2023 01/21/2023 HPI: Patient returns. He is here for follow-up of his left knee osteoarthritis. He took the meloxicam and he thinks that it did help quite a bit. He ran out about a week ago. He is getting a little bit more stiffness and pain in the knee. He has moderately severe medial compartment osteoarthritis on the PA flexion view. He did get blood work done after last time we saw him. His bilirubin is still elevated at 2.0. The rest of his liver enzymes are normal. The rest of the CMP was normal. Physical exam: 62-year-old male alert pleasant. He walks with a minimal limp. He has mild effusion left knee. Range motion is from 10-130 degrees. He has some mild tenderness over the medial joint line to palpation. No increased swelling in either lower extremity. After ChloraPrep used on skin 20 mg Kenalog and 3 cc of 0.5% ropivacaine was injected into the left knee. Risk of infection discussed. Impression: 62-year-old male who has moderately severe medial compartment osteoarthritis on the PA flexion view left knee. He feels that the meloxicam does help quite a bit and we will refill this. We will get blood work done in 2 months when he calls in for the refill at that time. His bilirubin is still elevated. He has cut way back on his drinking and is going to be seeing his primary care doctor early next year. We talked about utilizing cortisone injections to help with his symptoms he would like to have 1 today. Last shot was at the end of September of this year. He can repeat these often as every 3 months and would like to set up an appointment in 3 months for additional injection and we will do this for him. We will see him at that time. 20 minutes was spent in treatment patient with more than half of this in [id number] conversation Not available 01/21/2023 16:08:11 04/29/2023 04/29/2023 HPI: Patient returns. He is here for cortisone injection left knee. Last shot was 3 months ago. He had excellent relief. He was taking meloxicam and thinks this helped as well. He has been on it 3 months and therefore blood before refill it. He has moderate moderately severe medial compartment osteoarthritis left knee. Wished to have another injection today. Physical exam: 62-year-old male alert pleasant. He has mild effusion left knee. Range of motion is from 7-130 degrees. Mild tenderness over the medial joint line palpation. He walks relatively well without limp her assistance. No increased swelling in either lower extremity. After ChloraPrep was used on skin 20 mg Kenalog and 3 cc of 0.5% ropivacaine was injected into the left knee. Impression: 62 year male who has moderate to moderately severe medial compartment osteoarthritis left knee. We will give him a script for blood work. I remind him to call to 3 days after he gets the blood work done so that we can review it and refill the meloxicam if all of his labs are normal. Otherwise we will see him in 3 months repeat injection. Not available 04/29/2023 15:14:37 08/05/2023 08/05/2023 HPI: Patient returns. He is here for cortisone injection left knee. Last shot was 3 months ago. He has moderately severe medial compartment osteoarthritis. He is thinking about having the knee replaced later this year. He wished to have another injection today. Physical exam: 62-year-old male alert pleasant. He walks well without limp her assistance. He has a mild effusion left knee. Range motion is from 5-135 degrees. Saev-cx-skyywkbm tenderness over the medial joint line. After alcohol prep 20 mg Kenalog and 3 cc of 0.5% ropivacaine was injected into the left knee. Impression: 62-year-old male who has moderately severe medial compartment osteoarthritis left knee. Shots continue give him some good relief. He will call when he feels he needs additional injections. Meloxicam has been working well for him I will refill it today. Not available 08/05/2023 15:30:02 Plan of Treatment Reminders Order Date Submit Date Provider Last Modified By Organization Details Last Modified Time Details Appointments None recorded. Lab None recorded. Referral None recorded. Procedures injection/a spiration joint/bursa (PROC) - in office procedure, administere d by provider 2022 023 [email or web address] In-Office Order, Internal Use Only DO Not Attach Compendium DO Not Attach Compendium, Do Not Delete/merge, [id number] 16:08:19 injection/a spiration joint/bursa (PROC) - in office procedure, administere d by provider 2023 024 [email or web address] In-Office Order, Internal Use Only DO Not Attach Compendium DO Not Attach Compendium, Do Not Delete/merge, [id number] 4 15:00:42 injection/a spiration joint/bursa (PROC) - in office procedure, administere d by provider 2023 024 [email or web address] In-Office Order, Internal Use Only DO Not Attach Compendium DO Not Attach Compendium, Do Not Delete/merge, [id number] 14:06:27 Surgeries None recorded. Imaging XR, knee 2022 023 [email or web address] [facility], [place], [address], 3 16:27:46 Medication Orders meloxicam 15 mg tablet 2022 023 [facility]27779, [address], [place], [id number], 4 14:59:14 Kenalog 10 mg/mL suspension for injection 2022 023 [facility]90696, [address], [place], [id number], 3 16:09:03 ropivacaine (PF) 5 mg/mL (0.5 %) injection solution [address] [facility]02, [address] [place], [place], [id number], 3 16:09:03 meloxicam 15 mg tablet 2022 023 [facility]25007, [address] [place], [place], [id number], 4 14:59:14 Kenalog 10 mg/mL suspension for injection [address] [facility]18565, [address] [place] [address], [id number], 4 18:35:44 ropivacaine (PF) 5 mg/mL (0.5 %) injection solution [address] [facility]77612, [address] [place] [address], [id number], 4 18:35:44 Kenalog 10 mg/mL suspension for injection [address] [facility]99364, [address] [place] [address], [id number], 4 14:35:11 Marcaine (PF) 0.5 % (5 mg/mL) injection solution [address] [facility]71652, [address] [place] [address], [id number], 4 14:35:11 meloxicam 7.5 mg tablet 2023 024 [facility]75477, [address], [place], [id number], 17:13:20 Patient TargetsNo targets recorded. Patient InstructionsNo instructions recorded. Reason for Referral None Reported. Results Created Date Observation Date Name Description Value Unit Range Abnormal Flag Note LastModifiedBy Organization Detail LastModifiedTime 12/12/1912/06/2022 MRI, knee, w/o contr ast No observ ation record ed. [email or web address] Not Available 11/21 16:29:39 12/14/19 XR, knee No observ ation record ed. [email or web address] [facility] [address], [place], [address], 12/13/2022 10:49:08 12/14/19 23 09/20/2022 XR, knee No observ ation record ed. [email or web address] Not Available 2022 15:17:19 Result Notes None recorded. Problems Name Problem SNOMED Code Status Onset Date Resolution Date Notes Provider Name and Address Organization Details Recorded Time Pain of left knee joint 8361743801142 07 Active 2022 JESUS [place], [place] [employer] [facility] 3 10:49:05 Hyperbiliru binemia 23459035 Active 2022 JESUS [place], [employer] [facility] 3 11:10:07 Osteoarthri tis of left knee joint 3372587573991 09 Active 2022 JOSS Quarles null, [place] [facility] [employer] [facility] 3 15:01:21 Problem Notes None recorded. Procedures Surgical History None recorded. Imaging Results Imaging Date Name Status LastModified by Organ [facility] Details LastModified Time 12/06/2022 MRI, knee, w/o contrast completed [email or web address] Information not available 12/11/2022 16:29:39 12/13/2022 XR, knee completed [email or web address] [facility] [address], [place], [address], 12/13/2022 10:49:08 09/20/2022 XR, knee completed [email or web address] Information no t available 12/13/2022 15:17:19 Procedure Notes None recorded. Medical Equipment None Reported. Medications Name Sig Start Date Stop Date Status Note LastModified by Organization Details LastModified Time meloxicam 15 mg tablet TAKE 1 TABLET BY MOUTH EVERY DAY active Not Available Not Available No t Available lisinopril 20 mg tablet TAKE 1 TABLET BY MOUTH DAILY active Not Available Not Available No t Available meloxicam 7.5 mg tablet TAKE 1 TABLET BY MOUTH EVERY DAY 2023 active Not Available Not Available Not Avai lable Kenalog 10 mg/mL suspension for injection in office 2023 active [facility]: 0003- [id number]- [phone] Not Available Not Available Not Available lisinopril 10 mg tablet TAKE 1 TABLET BY MOUTH DAILY WITH 20 MG DAILY TO EQUAL 30 MG DAILY. active Not Available Not Available No t Available Marcaine (PF) 0.5 % (5 mg/mL) injection solution in office 2023 active Not Available Not Available Not Avai lable sodium,pota ssium,mag sulfates 17.5 gram-3.13 gram-1.6 gram oral soln MIX AND DRINK DIRECTED 01/21 completed Not Available Not Available Not Available ropivacaine (PF) 5 mg/mL (0.5 %) injection solution in office 2023 active Not Available Not Available Not Avai lable Vitals Date Recorded Body height Body mass index (BMI) Body weight Provider Name and Address Organization Details Last Updated DateTime 12/13/2022 165.1 cm 27.8 kg/m2 76539.93 g Nedra Albarado [employer] 12/13/2022 10:12:27 Date Recorded Body height Provider Name an d Address Organization Details Last Updated DateTime 01/21/2023 165.1 cm Lisa Cain Fro[employer]an [employer] [facility] 01/21/2023 15:00:20 Date Recorded Body height Provider Name an d Address Organization Details Last Updated DateTime 04/29/2023 165.1 cm JOSS Quarles [facility] [employer] [facility] 04/29/2023 14:59:03 Social History Question Answer Notes LastModified by Organizat ion Details LastModified Time Tobacco Smoking Status Unknown If Ever Smoked Nedra AlbaradoJOSS, [employer] 12/13/2022 10:13:18 What Is Your Level Of Alcohol Consumption? Moderate [email or web address] Information not available 12/13/2022 What Was The Date Of Your Most Recent Tobacco Screening? 12/13/2022 [email or web address] Information not available 12/13/2022 Sex: Unknown Functional Status None recorded. Mental Status None recorded. Family History Relationship Description Onset Age of this Age Resolved Age Notes LastModified by Organization Details LastModified Time Father Family history of malignant neoplasm [email or web address] Not available 2022 10:12:57 Father Diabetes mellitus [email or web address] Not available 2022 10:13:04 Medical History No medical history recorded. Past Encounters Encounter ID Performer Location Encounter Start Date Encounter Closed Date Diagnosis/Indication Diagnosis SNOMED-CT Code Diagnosis ICD10 Code Diagnosis Note [id number] Rosalio Frazier MD [facility] [address] [place] [address] 12/13/2022 09:50:36 12/13/2022 14:58:57 Pain of left knee joint 1916639045 02819 M25.073 [id number] CADY Sosa [facility] [place] [address] [place] [address] 01/21/2023 14:57:36 01/21/2023 16:30:04 Osteoarthritis of left knee joint 3813252270 97798 M17.12 [id number] CADY Sosa [facility] [place] [address] [place] [address] 04/29/2023 14:55:40 04/29/2023 15:16:57 Osteoarthritis of left knee joint 2287674623 62944 M17.12 [id number] CADY Sosa [facility] [place] [address] [place] [address] 08/05/2023 13:59:50 08/05/2023 16:27:49 Osteoarthritis of left knee joint 7728489771 63280 M17.12 Pain of le ft knee joint 9232291899 31133 M25.562 Health Concerns Section Related Observation LastModified by Organization Detai ls LastModified Time None Recorded Concern Status LastModified by Organization Details LastModified Time None Recorded Advance Directives Directive None Recorded Payers Encounter Date Sequence Insurance Name Policy Number Policy Amador Covered Member ID Amador Member ID Guarantor Name 12/13/2022 1 [employer] [facility] [id number] Anderson Ness [id number] Anderson Ness 01/21/2023 1 [employer] [facility] [id number] Anderson Ness [id number] Anderson Ness 04/29/2023 1 [employer] [facility] [id number] Anderson Ness [id number] Anderson Ness 08/05/2023 1 [employer] [facility] [id number] Anderson Ness [id number] Anderson Ness Notes Date Note Type Note Provider Name and Address Organization Details Recorded Time 12/13/2022 text/html Patient is a 62-year-old gentleman referred by Dr. Strickland for evaluation of his left knee. He has had problems with his left knee for many years. He had arthroscopic surgery and chips of material removed in approximately 1991 and that was very helpful back then. His symptoms have gradually worsened over the last few years. Is worsening and then gradual. His pain circumferentially around the knee which is worse going up and down stairs getting up from a seated position. He complains of start of pain in after he is up walking for a while he does better. He has had cortisone shots in the past. His last cortisone shot was in late September approximately weeks ago. He had physical therapy for 3 or 4 weeks starting October 22 and initially it seemed to help but then it seemed to be associated with more swelling again and pain. He has not used nonsteroidal anti-inflammatory medications yet. 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 Used to be an avid bike rider and recently tried a 9 mi bike ride too painful for him to tolerate. He misses being able to exercise. He had plain x-rays 09/20/2022 showing mild tricompartmental degenerative change. The AP view sed weight-bearing. He had an MRI scan of his left knee on 12/06/2022 which showed full-thickness cartilage loss medial aspect of medial femoral condyle and anteromedial aspect of medial tibial plateau. There was chronic appearing posterior root tear of the medial meniscus with ossification of the posterior horn stump of the medial meniscus. There was slight thickening increased signal intensity of the posterior cruciate ligament. Patient does not believe he has ever had a significant injury to his knee in the past. Rosalio Frazier MD [address] [place] [address], [place] [address], [place], [address], [facility] 12/13/2022 14:31:17
--- OUTSIDE RECORDS SUMMARY | 2024-05-12 04:20 | XMS_ITS | Clinical Summary ---
Author Organization [facility] Address [address] [place] [address] Care Team Providers Care Pipelines Superintendent Name Role Phone Unavailable Primary Care Provider Unavailabl e Source Comments [facility],non-owned Affiliates and Associated Physician Practices is amultiple site organization consisting of ambulatory clinics and hospital sitesin [place], [place], [place] and [place]. This disclosure is being madepursuant to the Care Everywhere program and may not contain all information available regarding this patient. Last updated 18.[facility] Allergies No known active allergies Medications * Be aware that medications may not be up to date on this document. Alwaysverify current medications with the patient. Medication Sig Dispensed Refills Start Date End Date Status acetaminophen (TYLENOL) 325 MG tablet Take 2 (two) tablets by mouth every 4 hours as needed for Fever Maximum allowable Acetaminophen amount = 4 Grams (4000 mg) / 24 hours. 11/25/2020 Active bacitracin (BACITRACIN) 500 UNIT/GM ointment Apply to affected area 2 times daily 1 g 11/25/2020 Active Additional Information Patient not taking.Reported on 01/02/2021 senna (SENOKOT) 8.6 MG tablet Take 1 (one) tablet by mouth once daily 11/26/2020 Active Additional Information Patient not taking.Reported on 01/02/2021 Active Problems Problem Noted Date Diagnosed Date Frontal lobe contusion 11/24/2020 TBI (traumatic brain injury) 11/24/2020 Intraparenchymal hematoma of brain 11/17/2020 Scalp laceration 11/17/2020 Splenic artery aneurysm 11/17/2020 Acute respiratory failure 11/17/2020 Trauma 11/16/2020 Immunizations Name Administration Dates Next Due TDAP (7yrs+) 11/16/2020 Social History Tobacco Use Types Packs/Day Years Used Date Smoking Tobacco: Former Smokeless Tobacco: Never Tobacco Cessation:Counseling Given: No Sex and Gender Information Value Date Recorded Sex Assigned at Not on file Gender Identity Male 11/18/2020 9:20 AM CDT Sexual Orientation Not on file Last Filed Vital Signs Vital Sign Reading Time Taken Comments Blood Pressure 156/99 01/02/2021 1:52 PM CDT Pulse 77 01/02/2021 1:52 PM CDT Temperature 36.1 ??C (97 ??F) 01/02/2021 1:52 PM CDT Respiratory Rate 18 11/26/2020 8:01 AM CDT Oxygen Saturation 97% 01/02/2021 1:52 PM CDT Inhaled Oxygen Concentration 40% 11/23/2020 8 :15 AM CDT Weight 78.9 kg (174 lb) 01/02/2021 1:52 PM CDT Height 165.1 cm (5' 5 ) 01/02/2021 1:52 PM CDT Body Mass Index 28.96 01/02/2021 1:52 PM CDT Plan of Treatment Health Maintenance Due Date Last Done Comments COLOGUARD (AGES 45-75) - COLON CA SCREENING 1961 COLON MONITORING 1961 COLONOSCOPY - COLON CA SCREENING 1961 CT COLONOGRAPHY - COLON CA SCREENING 1961 Colorectal Cancer Screening 1961 FIT - COLON CA SCREENING 1961 FLEX SIG - COLON CA SCREENING 1961 LIPID TESTING 1961 HIV SCREENING 1976 HEPATITIS C SCREENING 09/23/1979 PNEUMOCOCCAL VACCINE 50+ (1 of 1 - PCV) 09/28/2011 ZOSTER VACCINE (1 of 2) 09/28/2011 SCREENING FOR DIABETES 11/27/2023 , 11/25/2020, 11/24/2020, Additional history exists COVID-19 VACCINE ( - season) 2023 INFLUENZA VACCINE (#1) 2023 DEPRESSION SCREENING 04/22/2024 DTAP/TDAP/TD VACCINES (2 - Td or Tdap) 11/16/2030 11/16/2020 Respiratory Syncytial Virus (RSV) Vaccine Pt: or over 60 yrs (1 - 1-dose 75+ series) 2036 HEPATITIS B VACCINE Aged Out No longe r eligible based on patient's age to complete this topic HIB VACCINE Aged Out No longer eligi ble based on patient's age to complete this topic HPV VACCINE Aged Out No longer eligi ble based on patient's age to complete this topic MENINGOCOCCAL (Group B) VACCINE Aged Out No longer eligible based on patient's age to complete this topic MENINGOCOCCAL VACCINE Aged Out No bib wong eligible based on patient's age to complete this topic PNEUMOCOCCAL VACCINE Aged Out No long er eligible based on patient's age to complete this topic Procedures Procedure Name Priority Date/Time Associated Diagnosis Comments BASIC METABOLIC PANEL (CALCIUM TOTAL) Timed 11/26/2020 12:41 AM CDT from Last 3 Months or Most Recently Relevant to Health Maintenance Results * (ABNORMAL) BASIC METABOLIC PANEL (CALCIUM TOTAL) (11/26/2020 12:41 AM CDT) BUN 14 7 - 26 mg/dL 11/26/2020 2:43 AM [facility] Creatinine 0.73 0.71 - 1.16 mg/dL 11/26/2020 2:43 AM [facility] Sodium 145 136 - 145 mmol/L 11/26/2020 2:43 AM [facility] Potassium 3.1(L) 3.5 - 4.5 mmol/L 11/26/2020 2:43 AM [facility] Chloride 108(H) 98 - 107 mmol/L 11/26/2020 2:43 AM [facility] CO2 27 22 - 29 mmol/L 11/26/2020 2:43 AM [facility] Glucose 115 70 - 115 mg/dL 11/26/2020 2:43 AM [facility] Calcium 8.5 8.4 - 10.2 mg/dL 11/26/2020 2:43 AM [facility] Anion Gap 13 8 - 18 11/26/2020 2:43 AM CDT [facility] BUN/Creatinine Ratio 19 7 - 23 11/26/2020 2:43 AM CDT [facility] Osmolality Calculated 301(H) 270 - 300 mOsm/kg 11/26/2020 2:43 AM T [facility] eGFR by CKD-EPI >90 >=90 mL/min/1.7 3 m2 11/26/2020 2:43 AM CDT [facility] Blood BLOOD SPECIMEN / Unknown Lab Venipuncture / Unknown 11/26/2020 12:41 AM CDT 11/26/2020 2:16 AM CDT Everton Padilla MD LAB - CHEMISTRY RICARDO ZAVALETA [facility] [address] [place] [address], [facility] [phone] from Last 3 Months or Most Recently Relevant to Health Maintenance Advance Directives * Full Code (Latest Code Status on File) Date Activated Date Inactivated Comments 11/16/2020 11:12 PM 11/26/2020 12:43 PM
--- OUTSIDE RECORDS SUMMARY | 2024-05-12 04:20 | XMS_ITS | Referral Summary ---
Author Organization [facility] Address [address] [place] [address] Care Team Providers Care Supervisor Electronic Coils Name Role Phone Unavailable Primary Care Provider Unavailabl e Source Comments [facility],non-owned Affiliates and Associated Physician Practices is amultiple site organization consisting of ambulatory clinics and hospital sitesin [place], [place], [place] and [place]. This disclosure is being madepursuant to the Care Everywhere program and may not contain all information available regarding this patient. Last updated 18.[facility] Allergies No known active allergies Medications * [...] Mass Index 28.96 01/02/2021 1:52 PM CDT Functional Status Functional Status Response Date of Assess ment Is person deaf or have serious hearing difficult y? No 11/26/2020 Is person blind or have serious difficulty seein g? No 11/26/2020 Does person have serious dif ficulty walking/climbing stairs? No 11/26/2020 Does person have difficulty dressing/bathing? No 11/26/2020 Does person have difficulty doing errands alone? No 11/26/2020 Cognitive Status Response Date of Assessm ent Does person have difficulty concentrating/remembering/making decisions? No 11/26/2020 Plan of Treatment Not on file Procedures Procedure Name Priority Date/Time Associated Diagnosis Comments BASIC METABOLIC PANEL (CALCIUM TOTAL) Timed 11/26/2020 12:41 AM CDT from Last 3 Months or Most Recently Relevant to Health Maintenance Results * (ABNORMAL) BASIC METABOLIC PANEL (CALCIUM TOTAL) (11/26/2020 12:41 AM CDT) BUN 14 7 - 26 mg/dL 11/26/2020 2:43 AM [facility] Creatinine 0.73 0.71 - 1.16 mg/dL 11/26/2020 2:43 AM [facility] Sodium 145 136 - 145 mmol/L 11/26/2020 2:43 AM [facility] Potassium 3.1(L) 3.5 - 4.5 mmol/L 11/26/2020 2:43 AM [facility] Chloride 108(H) 98 - 107 mmol/L 11/26/2020 2:43 AM [facility] CO2 27 22 - 29 mmol/L 11/26/2020 2:43 AM [facility] Glucose 115 70 - 115 mg/dL 11/26/2020 2:43 AM [facility] Calcium 8.5 8.4 - 10.2 mg/dL 11/26/2020 2:43 AM [facility] Anion Gap 13 8 - 18 11/26/2020 2:43 AM [facility] BUN/Creatinine Ratio 19 7 - 23 11/26/2020 2:43 AM [facility] Osmolality Calculated 301(H) 270 - 300 mOsm/kg 11/26/2020 2:43 AM [facility] eGFR by CKD-EPI >90 >=90 mL/min/1.7 3 m2 11/26/2020 2:43 AM [facility] Blood BLOOD SPECIMEN / Unknown Lab Venipuncture / Unknown 11/26/2020 12:41 AM T 11/26/2020 2:16 AM [facility] Everton Padilla MD LAB - CHEMISTRY RICARDO ZAVALETA [facility] Organization Address City/State/ZIP Co de Phone Number [facility] [address] [place] [address], [facility] [phone] from Last 3 Months or Most Recently Relevant to Health Maintenance Advance Directives * Full Code (Latest Code Status on File) Date Activated Date Inactivated Comments 11/16/2020 11:12 PM 11/26/2020 12:43 PM
--- OUTSIDE RECORDS SUMMARY | 2024-05-12 04:21 | XMS_ITS | Patient Health Summary ---
Author Organization [facility] Address [address] [place] [address] Care Team Providers Care Director [employer] [employer] Name Role Phone Unavailable Primary Care Provider Unavailabl e Note from [facility],non-owned Affiliates and Associated Physician Practices is amultiple site organization consisting of ambulatory clinics and hospital sitesin [place], [place], [place] and [place]. This disclosure is being madepursuant to the Care Everywhere program and may not contain all information available regarding this patient. Last updated 18.[facility] Allergies No known active allergies Medications * Be aware that medications may not be up to date on this document. Alwaysverify current medications with the patient. * acetaminophen (TYLENOL) 325 MG tablet(Started 11/25/2020) Take 2 (two) tablets by mouth every 4 hours as needed for Fever Maximum allowable Acetaminophen amount = 4 Grams (4000 mg) / 24 hours. * bacitracin (BACITRACIN) 500 UNIT/GM ointment(Started 11/25/2020) Apply to affected area 2 times daily * senna (SENOKOT) 8.6 MG tablet(Started 11/26/2020) Take 1 (one) tablet by mouth once daily Active Problems Problem Noted Date Diagnosed Date Frontal lobe contusion 11/24/2020 TBI (traumatic brain injury) 11/24/2020 Intraparenchymal hematoma of brain 11/17/2020 Scalp laceration 11/17/2020 Splenic artery aneurysm 11/17/2020 Acute respiratory failure 11/17/2020 Trauma 11/16/2020 Immunizations * TDAP (7yrs+)(Given 11/16/2020) Social History Tobacco Use Types Packs/Day Years [...] Mass Index 28.96 01/02/2021 1:52 PM CDT Procedures * CT HEAD WO CONTRAST(Performed 01/02/2021) Performed for Trauma * CBC W/O DIFFERENTIAL(Performed 11/26/2020) * PHOSPHORUS BLOOD(Performed 11/26/2020) * MAGNESIUM BLOOD(Performed 11/26/2020) * BASIC METABOLIC PANEL (CALCIUM TOTAL)(Performed 11/26/2020) * PT EVAL AND TREAT(Performed 11/25/2020) * OT EVAL AND TREAT(Performed 11/25/2020) * PHOSPHORUS BLOOD(Performed 11/25/2020) * MAGNESIUM BLOOD(Performed 11/25/2020) * CBC W/O DIFFERENTIAL(Performed 11/25/2020) * CALCIUM IONIZED WHOLE BLOOD(Performed 11/25/2020) * BASIC METABOLIC PANEL (CALCIUM TOTAL)(Performed 11/25/2020) * XR CHEST 1VW PORTABLE(Performed 11/24/2020) Performed for Acute respiratory failure, unspecified whether with hypoxia or hypercapnia (HCC) * PHOSPHORUS BLOOD(Performed 11/24/2020) * MAGNESIUM BLOOD(Performed 11/24/2020) * CBC W/O DIFFERENTIAL(Performed 11/24/2020) * CALCIUM IONIZED WHOLE BLOOD(Performed 11/24/2020) * BASIC METABOLIC PANEL (CALCIUM TOTAL)(Performed 11/24/2020) * CARDIAC EKG ORDER(Performed 11/23/2020) * APHERESIS/TRANSFUSION ORDER(Performed 11/23/2020) * XR CHEST 1VW PORTABLE(Performed 11/23/2020) Performed for Acute respiratory failure with hypoxia (HCC) * BLOOD GASES ART + COOX PANEL(Performed 11/22/2020) * PHOSPHORUS BLOOD(Performed 11/22/2020) * MAGNESIUM BLOOD(Performed 11/22/2020) * CBC W/O DIFFERENTIAL(Performed 11/22/2020) * CALCIUM IONIZED WHOLE BLOOD(Performed 11/22/2020) * BASIC METABOLIC PANEL (CALCIUM TOTAL)(Performed 11/22/2020) * XR CHEST 1VW PORTABLE(Performed 11/22/2020) Performed for Acute respiratory failure with hypoxia (HCC) * BLOOD GASES ART + COOX PANEL(Performed 11/21/2020) * PHOSPHORUS BLOOD(Performed 11/21/2020) * MAGNESIUM BLOOD(Performed 11/21/2020) * CBC W/O DIFFERENTIAL(Performed 11/21/2020) * CALCIUM IONIZED WHOLE BLOOD(Performed 11/21/2020) * BASIC METABOLIC PANEL (CALCIUM TOTAL)(Performed 11/21/2020) * SARS-COV-2 (COVID-19)+INFLU A+B PCR RAPID(Performed 11/21/2020) * BLOOD GASES ART + COOX PANEL(Performed 11/21/2020) * XR CHEST 1VW PORTABLE(Performed 11/21/2020) Performed for Trauma * PHOSPHORUS BLOOD(Performed 11/21/2020) * MAGNESIUM BLOOD(Performed 11/21/2020) * CBC W/O DIFFERENTIAL(Performed 11/21/2020) * CALCIUM IONIZED WHOLE BLOOD(Performed 11/21/2020) * BASIC METABOLIC PANEL (CALCIUM TOTAL)(Performed 11/21/2020) * BLOOD GASES ART + COOX PANEL(Performed 11/20/2020) * BLOOD GASES ART + COOX PANEL(Performed 11/20/2020) * PHOSPHORUS BLOOD(Performed 11/20/2020) * CULTURE MRSA(Performed 11/20/2020) * XR ABDOMEN KUB PORTABLE(Performed 11/20/2020) Performed for Trauma * XR CHEST 1VW PORTABLE(Performed 11/20/2020) Performed for Respiratory failure after trauma (HCC) * XR CHEST 1VW PORTABLE(Performed 11/20/2020) Performed for Trauma * PHOSPHORUS BLOOD(Performed 11/20/2020) * MAGNESIUM BLOOD(Performed 11/20/2020) * CBC W/O DIFFERENTIAL(Performed 11/20/2020) * CALCIUM IONIZED WHOLE BLOOD(Performed 11/20/2020) * BASIC METABOLIC PANEL (CALCIUM TOTAL)(Performed 11/20/2020) * CULTURE SPUTUM+GRAM STAIN(Performed 11/19/2020) * URINALYSIS REFLEX TO MICROSCOPIC NO CULTURE(Performed 11/19/2020) * PT EVAL AND TREAT(Performed 11/19/2020) * OT EVAL AND TREAT(Performed 11/19/2020) * XR CHEST 1VW PORTABLE(Performed 11/19/2020) Performed for Trauma * HEPATIC FUNCTION PANEL(Performed 11/18/2020) * PHOSPHORUS BLOOD(Performed 11/18/2020) * MAGNESIUM BLOOD(Performed 11/18/2020) * CBC W/O DIFFERENTIAL(Performed 11/18/2020) * CALCIUM IONIZED WHOLE BLOOD(Performed 11/18/2020) * BASIC METABOLIC PANEL (CALCIUM TOTAL)(Performed 11/18/2020) * EXTUBATION(Performed 11/18/2020) * PHOSPHORUS BLOOD(Performed 11/18/2020) * BASIC METABOLIC PANEL (CALCIUM TOTAL)(Performed 11/18/2020) * XR CHEST 1VW PORTABLE(Performed 11/18/2020) Performed for Trauma * TRIGLYCERIDES BLOOD(Performed 11/18/2020) * BLOOD GASES ART + COOX PANEL(Performed 11/17/2020) * PHOSPHORUS BLOOD(Performed 11/17/2020) * MAGNESIUM BLOOD(Performed 11/17/2020) * CBC W/O DIFFERENTIAL(Performed 11/17/2020) * CALCIUM IONIZED WHOLE BLOOD(Performed 11/17/2020) * BASIC METABOLIC PANEL (CALCIUM TOTAL)(Performed 11/17/2020) * XR ABDOMEN KUB PORTABLE(Performed 11/17/2020) Performed for Trauma * CT HEAD WO CONTRAST(Performed 11/17/2020) Performed for Trauma * EKG 12-LEAD(Performed 11/17/2020) Performed for Trauma * XR CHEST 1VW PORTABLE(Performed 11/17/2020) Performed for Traumatic brain injury with loss of consciousness, initial encounter (HCC), Respiratory failure after trauma (HCC) * BLOOD GASES ART + COOX PANEL(Performed 11/17/2020) * PHOSPHORUS BLOOD(Performed 11/17/2020) * MAGNESIUM BLOOD(Performed 11/17/2020) * CBC W/O DIFFERENTIAL(Performed 11/17/2020) * CALCIUM IONIZED WHOLE BLOOD(Performed 11/17/2020) * BASIC METABOLIC PANEL (CALCIUM TOTAL)(Performed 11/17/2020) * VENTILATOR LIBERATION TRIAL PROTOCOL(Performed 11/16/2020) * PREPARE RBC LEUKOREDUCED UNIT(Performed 11/16/2020) * PREPARE WHOLE BLOOD UNIT(S)(Performed 11/16/2020) * BLOOD GASES ART + COOX PANEL(Performed 11/16/2020) * URINE DRUG SCREEN IMMUNOASSAY(Performed 11/16/2020) * SARS-COV-2 (COVID-19)+INFLU A+B PCR RAPID(Performed 11/16/2020) Performed for Trauma * BLOOD TYPE VERIFICATION(Performed 11/16/2020) * CT FACIAL BONES WO CONTRAST(Performed 11/16/2020) Performed for Trauma * CT TEMPORAL BONES WO CONTRAST(Performed 11/16/2020) Performed for Trauma * CT LUMBAR SPINE WO CONTRAST(Performed 11/16/2020) Performed for Trauma * CT THORACIC SPINE WO CONTRAST(Performed 11/16/2020) Performed for Trauma * CT CHEST ABDOMEN PELVIS W CONT(Performed 11/16/2020) Performed for Trauma * CT CERVICAL SPINE WO CONTRAST(Performed 11/16/2020) Performed for Trauma * CT HEAD WO CONTRAST(Performed 11/16/2020) Performed for Trauma * TEG 6S PLATELET MAPPING(Performed 11/16/2020) * TEG 6 GLOBAL HEMOSTASIS W/ LYSIS(Performed 11/16/2020) * XR PELVIS 1 OR 2VW(Performed 11/16/2020) Performed for Trauma * XR CHEST 1VW PORTABLE(Performed 11/16/2020) Performed for Trauma * TYPE + SCREEN PANEL(Performed 11/16/2020) * PTT [facility](Performed 11/16/2020) * PT-INR [facility](Performed 11/16/2020) * LIPASE BLOOD(Performed 11/16/2020) * CBC W AUTO DIFFERENTIAL(Performed 11/16/2020) * BASIC METABOLIC PANEL (CALCIUM TOTAL)(Performed 11/16/2020) * ALCOHOL ETHYL BLOOD(Performed 11/16/2020) Results * CT HEAD WO CONTRAST (01/02/2021 1:41 PM CDT) Only the most recent of3 resultswithin the time period is included. Anatomical Region Laterality Modality Head Computed Tomogra phy 01/02/2021 1:46 PM CDT Impressions 01/02/2021 3:29 PM CDT IMPRESSION: 1.Interval resolution of previously seen intracranial and subarachnoid hemorrhages. 2.No new acute intracranial hemorrhage. 3.No midline shift or significant mass effect. Report dictated by Asher Hameed MD (residential field manager). This report was approved ??by Asher Hameed ?? on 01/02/2021 3:29 PM . I, Dr. NURY KAY have personally reviewed and interpreted this examination/study. This report was electronically signed by NURY KAY ??on 01/02/2021 3:29 PM . Narrative 01/02/2021 3:[address] HEAD WO CONTRAST DATE: 01/02/2021 1:42 PM EXAMINATION: Computed tomography (CT) of the head without contrast HISTORY: T14.90XA: Trauma TECHNIQUE: CT of the head was performed without contrast according to standard protocol. COMPARISON: CT head without contrast dated 11/17/2020 FINDINGS: Interval resolution of previously seen small foci of intracranial hemorrhages within the left frontal and parietal lobes. Interval resolution of previously seen small volume subarachnoid hemorrhages. No new acute intra- or extra-axial fluid collections are identified. The ventricles are of normal size, shape, and morphology. The basilar cisterns are patent. No mass effect or midline shift is seen. The watkins-white matter differentiation is normal. Periventricular white matter hypoattenuation is indicative of chronic small vessel ischemic disease. Unchanged age indeterminate fracture of the right nasal process of the maxilla. The orbits appear normal. The frontal and bilateral maxillary sinuses are clear. There is a retention cyst in the right sphenoid sinus. Partial opacification of the mastoid air cells, right greater than left. Interval decrease in previously seen left frontoparietal scalp and left periorbital hematoma/soft tissue swelling. Procedure Note Nury Kay MD - 01/02/2021 CT HEAD WO CONTRAST DATE: 01/02/2021 1:42 PM EXAMINATION: Computed tomography (CT) of the head without contrast HISTORY: T14.90XA: Trauma TECHNIQUE: CT of the head was performed without contrast according to standard protocol. COMPARISON: CT head without contrast dated 11/17/2020 FINDINGS: Interval resolution of previously seen small foci of intracranial hemorrhages within the left frontal and parietal lobes. Interval resolution of previously seen small volume subarachnoid hemorrhages. No new acute intra- or extra-axial fluid collections are identified. The ventricles are of normal size, shape, and morphology. The basilarcisterns are patent. No mass effect or midline shift is seen. The watkins-whitematter differentiation is normal. Periventricular white matter hypoattenuationis indicative of chronic small vessel ischemic disease. Unchanged age indeterminate fracture of the right nasal process of the maxilla. The orbits appear normal. The frontal and bilateral maxillary sinuses are clear. There is a retention cyst in the right sphenoid sinus. Partial opacification of the mastoid air cells, right greater than left.Interval decrease in previously seen left frontoparietal scalp and leftperiorbital hematoma/soft tissue swelling. IMPRESSION: 1.Interval resolution of previously seen intracranial and subarachnoid hemorrhages. 2.No new acute intracranial hemorrhage. 3.No midline shift or significant mass effect. Report dictated by Asher Hameed MD (residential field manager). This report was approved by Asher Hameed on 01/02/2021 3:29 PM . I, Dr. NURY KAY have personally reviewed and interpreted this examination/study. This report was electronically signed by NURY KAY on01/02/2021 3:29 PM . Latonya Morales APRN-DESIGN ENGINEER AGRICULTURAL EQUIPMENT CT ORDERABLES * (ABNORMAL) CBC W/O DIFFERENTIAL (11/26/2020 12:42 AM CDT) Only the most recent of10 resultswithin the time period is included. WBC 12.3(H) 3.5 - 10.5 10? 3 /uL 11/26/2020 2:27 AM [facility] RBC 3.05(L) 4.30 - 5.70 10? 6 /uL 11/26/2020 2:27 AM [facility] Hemoglobin 9.2(L) 12.0 - 17.6 g/dL 11/26/2020 2:27 AM [facility] Hematocrit 26.8(L) 35.2 - 51.7 % 11/26/2020 2:27 AM [facility] MCV 87.9 80.7 - 98.3 fL 11/26/2020 2:27 AM [facility] MCH 30.2 26.7 - 34.0 pg 11/26/2020 2:27 AM [facility] MCHC 34.3 30.8 - 35.9 g/dL 11/26/2020 2:27 AM [facility] Platelet Count 561(H) 150 - 400 10? 3 /uL 11/26/2020 2:27 AM [facility] RDW-SD 41.0 36.0 - 50.0 fL 11/26/2020 2:27 AM [facility] RDW-CV 12.8 11.2 - 14.8 % 11/26/2020 2:27 AM [facility] MPV 10.1 9.4 - 12.9 fL 11/26/2020 2:27 AM [facility] nRBC Absolute 0.02(H) 0 10? 3 /uL 11/26/2020 2:27 AM [facility] nRBC Auto 0.2(H) 0 /100 WBC 11/26/2020 2:27 AM [facility] Blood BLOOD SPECIMEN / Unknown Lab Venipuncture / Unknown 11/26/2020 12:42 AM CDT 11/26/2020 2:16 AM T Everton Padilla MD LAB - HEMATOLOGY ORD ERABLES [facility] [address] [place] [address], [facility] [phone] * (ABNORMAL) BASIC METABOLIC PANEL (CALCIUM TOTAL) (11/26/2020 12:41 AM CDT) Only the most recent of12 resultswithin the time period is included. BUN 14 7 - 26 mg/dL 11/26/2020 2:43 AM [facility] Creatinine 0.73 0.71 - 1.16 mg/dL 11/26/2020 2:43 AM [facility] Sodium 145 136 - 145 mmol/L 11/26/2020 2:43 AM [facility] Potassium 3.1(L) 3.5 - 4.5 mmol/L 11/26/2020 2:43 AM [facility] Chloride 108(H) 98 - 107 mmol/L 11/26/2020 2:43 AM [facility] CO2 27 22 - 29 mmol/L 11/26/2020 2:43 AM [facility] Glucose 115 70 - 115 mg/dL 11/26/2020 2:43 AM [facility] Calcium 8.5 8.4 - 10.2 mg/dL 11/26/2020 2:43 AM [facility] Anion Gap 13 8 - 18 11/26/2020 2:43 AM [facility] BUN/Creatinine Ratio 19 7 - 23 11/26/2020 2:43 AM [facility] Osmolality Calculated 301(H) 270 - 300 mOsm/kg 11/26/2020 2:43 AM [facility] eGFR by CKD-EPI >90 >=90 mL/min/1.7 3 m2 11/26/2020 2:43 AM [facility] Blood BLOOD SPECIMEN / Unknown Lab Venipuncture / Unknown 11/26/2020 12:41 AM CDT 11/26/2020 2:16 AM T Everton Padilla MD LAB - CHEMISTRY R[facility]ARDO [facility]AVAL[facility] Organization Address City/State/ZIP Co de Phone Number [facility] [address] [place] [address], [facility] [phone] * PHOSPHORUS BLOOD (11/26/2020 12:41 AM CDT) Only the most recent of12 resultswithin the time period is included. Phosphorus 3.0 2.8 - 5.1 mg/dL 11/26/2020 2:43 AM CDT [facility] Blood BLOOD SPECIMEN / Unknown Lab Venipuncture / Unknown 11/26/2020 12:41 AM CDT 11/26/2020 2:16 AM CDT Everton Padilla MD LAB - CHEMISTRY RICARDO ZAVALETA Performing Organization Address City/[facility]/ZIP Co de Phone Number [address] [address], [facility] [phone] * MAGNESIUM BLOOD (11/26/2020 12:41 AM CDT) Only the most recent of10 resultswithin the time period is included. Pathologist [facility] Magnesium 1.9 1.6 - 2.6 mg/dL 11/26/2020 2:43 AM CDT [facility] Blood BLOOD SPECIMEN / Unknown Lab Venipuncture / Unknown 11/26/2020 12:41 AM CDT 11/26/2020 2:16 AM CDT Everton Padilla MD LAB - CHEMISTRY RICARDO ZAVALETA Performing Organization Address City/[facility]/ZIP Co de Phone Number [address] [address], [facility] [phone] * (ABNORMAL) CALCIUM IONIZED WHOLE BLOOD (11/25/2020 12:11 AM CDT) Only the most recent of9 resultswithin the time period is included. Calcium Ionized 1.17 mmol/L 11/25/2020 1:35 AM CDT [facility] pH 7.43 7.35 - 7.45 pH 11/25/2020 1:35 AM CDT [facility] Ionized Calcium pH Adjusted 1.18(L) 1.19 - 1.34 mmol/L 11/25/2020 1:35 AM CDT [facility] Blood WHOLE BLOOD SPECIMEN / Unknown Lab Venipuncture / Unknown 11/25/2020 12:11 AM CDT 11/25/2020 1:29 AM CDT Everton Padilla MD LAB - CHEMISTRY RICARDO ZAVALETA [facility] Organization Address City/State/ZIP Co de Phone Number [facility] [place] [id number] [place] [address], [facility] [phone] * XR CHEST 1VW PORTABLE (11/24/2020 4:49 AM CDT) Only the most recent of10 resultswithin the time period is included. Anatomical Region Laterality Modality Chest Radiographic Rosa ging 11/24/2020 9:21 AM CDT Impressions 11/28/2020 7:33 AM CDT FINDINGS/IMPRESSION: Lines and tubes: *Interval extubation. *Interval removal of NG/OG tube. *Cervical collar is in place. Mild right hemidiaphragm elevation. There is no focal consolidation, pleural effusion, or pneumothorax. The cardiomediastinal silhouette is stable. Dictated by Jessica Felipe MD (residential field manager). Dr. WALESKA Hilton have personally reviewed and interpreted this examination/study. This report was electronically signed by WALESKA SHETTY ??on 11/28/2020 7:33 AM . Narrative 11/28/2020 7:33 AM CDT EXAMINATION: XR CHEST 1VW PORTABLE HISTORY: J96.00: Acute respiratory failure, unspecified whether with hypoxia or hypercapnia COMPARISON: Chest x-ray dated 11/23/2020 Procedure Note Waleska Shetty DO - 11/28/2020 EXAMINATION: XR CHEST 1VW PORTABLE HISTORY: J96.00: Acute respiratory failure, unspecified whether with hypoxia or hypercapnia COMPARISON: Chest x-ray dated 11/23/2020 FINDINGS/IMPRESSION: Lines and tubes: *Interval extubation. *Interval removal of NG/OG tube. *Cervical collar is in place. Mild right hemidiaphragm elevation. There is no focal consolidation, pleural effusion, or pneumothorax. The cardiomediastinal silhouette is stable. Dictated by Jessica Felipe MD (residential field manager). Dr. WALESKA Hilton have personally reviewed and interpreted this examination/study. This report was electronically signed by WALESKA SHETTY on 11/28/2020 7:33 AM . Everton Padilla MD DIAGNOSTIC IMAGING O RDERABLES * CARDIAC EKG ORDER (11/23/2020 1:54 PM CDT) Narrative 11/23/2020 1:54 PM CDT Ordered by an unspecified provider. Scanned Document CARDIAC SERVICES ORD ERABLES * APHERESIS/TRANSFUSION ORDER (11/23/2020 9:09 AM CDT) Narrative 11/23/2020 9:09 AM CDT Ordered by an unspecified provider. Scanned Document NURSING - VITAL SIGN S AND ASSESSMENT * (ABNORMAL) BLOOD GASES ART + COOX PANEL (11/22/2020 11:51 PM CDT) Only the most recent of8 resultswithin the time period is included. pH Arterial 7.48(H) 7.35 - 7.45 pH 11/23/2020 12:09 AM [facility] pO2 Arterial 163(H) 80 - 100 mmHg 11/23/2020 12:09 AM [facility] pCO2 Arterial 34(L) 35 - 45 mmHg 12:09 AM [facility] HCO3 Arterial 25 20 - 30 mmol/l 11/23/2020 12:09 AM [facility] BE Arterial 2.3(H) -2.0 - 2.0 mmol/L 11/23/2020 12:09 AM [facility] Oxyhemoglobin Arterial 97.3 % 11/23/2020 12:09 AM [facility] Dexoyhemoglobin (HHB) % 0.4 % 11/23/2020 12:09 AM [facility] Methemoglobin 0.9 0.0 - 2.0 % 11/23/2020 12:09 AM [facility] Carboxyhemoglobin 1.3 0.0 - 2.0 % 2020 12:09 AM [facility] O2 Content Arterial 21.9 Interpret within clinical context mg/dL 11/23/2020 12:09 AM [facility] Hemoglobin by COOX 15.8 12.0 - 17.6 g/dL 11/23/2020 12:09 AM T [facility] O2 Saturation Arterial 100 90 - 100 % 11/23/2020 12:09 AM T [facility] FI O2 Arterial 40.0 % 11/23/2020 12:09 AM T [facility] Blood, arterial ARTERIAL BLOOD SPECIMEN / Unknown Arterial Puncture / Unknown 11/22/2020 11:51 PM CDT 11/22/2020 11:56 PM CDT Narrative [facility] - 11/23/2020 12:09 AM CDT Carboxyhemoglobin Normal Concentration: Non-smokers: 0-2%; Smokers: 0-9%; Toxic: >20% Gwen Garcia CRANE ASSEMBLER-Ernesto DRYING SUPERVISOR LAB - BLOOD GASES ORDERABLES [facility] [address] [place] [address], [facility] [phone] * SARS-COV-2 (COVID-19)+INFLU A+B PCR RAPID (11/21/2020 4:28 PM CDT) Only the most recent of2 resultswithin the time period is included. [facility] COVID-19 PCR Not detected Not detected 11/22/19 21 5:59 PM CDT [facility] Influenza A Rapid LISA Not Detected Not Detected 11/21/2020 5:59 PM CDT [facility] Influenza B LISA Rapid Not Detected Not Detected 11/21/2020 5:59 PM CDT [facility] Microbiology SPECIMEN FROM NASOPHARYNGEAL STRUCTURE / Unknown Collection / Unknown 11/21/2020 4:28 PM CDT 11/21/2020 4:38 PM CDT Narrative [facility] - 11/21/2020 5:59 PM CDT Influenza assay performed by Nucleic Acid [employer]. Results do not exclude the possibility of a mixed viral infection. NOTE: ??Detecting and identifying specific viral nucleic acids from individuals exhibiting signs and symptoms of respiratory infection aids in the diagnosis of respiratory infection, if used in conjunction with other clinical and laboratory findings. The results of this test should not be used as the sole basis for diagnosis, treatment, or patient management decisions. This nucleic acid amplification assay performance was validated by [facility]. This test has been authorized by the Food and Drug administration (FDA)under an Emergency??Use Authorization (EUA). This test has been validated in accordance with the FDA's guidance document Policy for Diagnostic Testing in Laboratories Certified to perform High Complexity Testing under CLIA prior to Emergency Use Authorization for Coronavirus Disease-2019 during the Public Health Emergency issued on June 20, 2019. FDA independent review of this validation is pending. This test is only authorized for the duration of time the declaration that circumstances exist justifying the authorization of emergency use of in vitro diagnostic tests for detection of SARS-CoV-2 virus and/or diagnosis of COVID-19 infection under section 564(b)(1) of the Act, 21 U.S.C 360bbb-3 (b)(1), unless the authorization is terminated or revoked sooner. Fact Sheets for this EUA assay are available upon request. Everton Padilla MD LAB - MICROBIOLOGY [place] [address] [place] [address], [place] [phone] * CULTURE MRSA (11/20/2020 10:03 AM CDT) [facility] Culture Negative for methicillin-resist ant Staphylococcus aureus (MRSA) TALHA 11/21/2020 4:10 PM CDT [facility] MICROBIOLOGY Microbiology SPECIMEN FROM NASAL FOSSAE / Unknown Collection / Unknown 11/20/2020 10:03 AM CDT 11/20/2020 10:14 AM CDT Everton Padilla MD LAB - MICROBIOLOGY O [place] [facility] MICROBIOLOGY [address] [place] [address], [facility] [phone] * XR ABDOMEN KUB PORTABLE (11/20/2020 9:31 AM CDT) Only the most recent of2 resultswithin the time period is included. Anatomical Region Laterality Modality Abdomen Radiographic Rosa ging 11/20/2020 9:50 AM CDT Impressions 11/20/2020 8:51 PM CDT FINDINGS/IMPRESSION: An enteric tube tip superimposes the stomach. There is redemonstration of a splenic artery aneurysm. Dictated by Cameron Mijares MD (residential field manager). This report was approved ??by Cameron Mijares ?? on 11/20/2020 8:51 PM . I, Dr. NURY KAY have personally reviewed and interpreted this examination/study. This report was electronically signed by NURY KAY ??on 11/20/2020 8:51 PM . Narrative 11/20/2020 8:51 PM CDT EXAMINATION: XR ABDOMEN KUB PORTABLE HISTORY: T14.90XA: Trauma COMPARISON: X-ray abdomen dated 11/17/2020. Procedure Note Nury Kay MD - 11/20/2020 EXAMINATION: XR ABDOMEN KUB PORTABLE HISTORY: T14.90XA: Trauma COMPARISON: X-ray abdomen dated 11/17/2020. FINDINGS/IMPRESSION: An enteric tube tip superimposes the stomach. There is redemonstrationof a splenic artery aneurysm. Dictated by Cameron Mijares MD (residential field manager). This report was approved by Cameron Mijares on 11/20/2020 8:51 PM . I, Dr. NURY KAY have personally reviewed and interpreted this examination/study. This report was electronically signed by NURY KAY on11/20/2020 8:51 PM . Everton Padilla MD DIAGNOSTIC IMAGING O RDERABLES * (ABNORMAL) CULTURE SPUTUM+GRAM STAIN (11/19/2020 3:24 PM CDT) Culture Moderate Enterobacter cloacae complex(A) TALHA 11/21/2020 3:16 PM CDT [facility] Culture Moderate Staphylococcus aureus(A) TALHA 11/21/2020 3:16 PM CDT [facility] Comment:Staphylococcus aureu s methicillin-susceptible (MSSA) detected by penicillin binding protein immunoassay. Culture Moderate normal oropharyngeal kadeem TALHA 11/21/2020 3:16 PM CDT [facility] Gram Stain >= 25 per low power field Polymorphonuclear cells 11/21/2020 3:16 PM CDT [facility]CRO[facility] Gram Stain <10 per low power field Squamous epithelial cells 11/21/2020 3:16 PM CDT [facility]CRO[facility]OLOG[facility] Gram Stain Heavy Gram-positive cocci pairs and chains 11/21/2020 3:16 PM CDT [facility]CRO[facility] Gram Stain Light Gram-positive bacilli 11/21/2020 3:16 PM CDT [facility]CRO[facility] Gram Stain Rare Gram-negative coccobacilli 11/21/2020 3:16 PM CDT [facility] MICROBIOLOGY Microbiology SPUTUM / Unknown Collection / Unknown 11/19/2020 3:24 PM CDT 11/19/2020 3:27 PM CDT [facility] MICROBIOLOGY - 11/21/2020 3:16 PM CDT Enterobacter, Citrobacter, Serratia, and Klebsiella (formerly Enterobacter) aerogenes may develop resistance during prolonged therapy with third-generation cephalosporins as a result of derepression of AmpC beta-lactamase. Therefore, isolates that are initially susceptible may become resistant within 3 or 4 days after initiation of therapy. Testing of repeat isolates may be warranted. Organism Antibiotic Method Susceptibility Enterobacter cloacae complex Amikacin TALHA <=2 ug/mL: Susceptible Enterobacter cloacae complex Cefepime TALHA <=1 ug/mL: Susceptible Enterobacter cloacae complex Ceftriaxone TALHA <=1 ug/mL: Susceptible Enterobacter cloacae complex Ciprofloxacin TALHA <=0.25 ug/mL: Susceptible Enterobacter cloacae complex Gentamicin TALHA <=1 ug/mL: Susceptible Enterobacter cloacae complex Meropenem TALHA <=0.25 ug/mL: Susceptible Enterobacter cloacae complex Piperacillin-tazobactam TALHA <=4 ug/mL: Susceptible Enterobacter cloacae complex Tobramycin TALHA <=1 ug/mL: Susceptible Enterobacter cloacae complex Trimethoprim-sulfamethoxa zole TALHA <=20 ug/mL: Susceptible Staphylococcus aureus Clindamycin TALHA 0.25 ug/mL: Susceptible Staphylococcus aureus Doxycycline TALHA <=0.5 ug/mL: Susceptible Staphylococcus aureus Gentamicin TALHA <=0.5 ug/mL: Susceptible Staphylococcus aureus Inducible Clindamy jason Resistance TALHA NEG ug/mL: Neg Staphylococcus aureus Linezolid TALHA 2 ug/mL: Susceptible Staphylococcus aureus Oxacillin TALHA 0.5 ug/mL: Susceptible Staphylococcus aureus Tetracycline TALHA <=1 ug/mL: Susceptible Staphylococcus aureus Trimethoprim-sulfa methoxa zole TALHA <=10 ug/mL: Susceptible Staphylococcus aureus Vancomycin TALHA <=0.5 ug/mL: Susceptible Comment: Staphylococcus sensitivity to oxacillin predicts susceptibility for nafcillin, ampicillin/sulbactam, amoxicillin/clavulanate, piperacillin/tazobactam, all cephalosporins (except ceftazidime, ceftazidime/avibactam, ceftolozane/tazobactam), and all carbapenems. Everton Padilla MD LAB - MICROBIOLOGY O RDERABRUNO [facility]CRO[facility] [address] [place] [address], [facility] [phone] * (ABNORMAL) URINALYSIS REFLEX TO MICROSCOPIC NO CULTURE (11/19/2020 3:19 PM CDT) Color UA Straw Straw, Yellow 11/19/2020 3:43 PM [facility] Clarity UA Clear Clear 11/19/2020 3:43 PM T [facility] Specific [place] UA 1.006 1.005 - 1.030 11/19/2020 3:43 PM [facility] pH UA 8.0 5.0 - 8.0 pH 11/19/2020 3:43 PM [facility] Protein UA Negative Negative 11/19/2020 3:43 PM [facility] Glucose UA Negative Negative 11/19/2020 3:43 PM [facility] Ketone UA Trace(A) Negative 11/19/2020 3:43 PM [facility] Bilirubin UA Negative Negative 11/19/2020 3:43 PM [facility] Blood UA 2+(A) Negative 11/19/2020 3:43 PM [facility] Nitrite UA Negative Negative 11/19/2020 3:43 PM [facility] Leukocyte Esterase 1+(A) Negative 11/19/2020 3:43 PM [facility] Urobilinogen UA Negative Negative mg/dL [facility]2020 3:43 [facility] RBC UA 51-100(A) None Seen, 0-2, 3-5 /HPF 11/19/2020 3:43 PM [facility] WBC UA 0-5 None Seen, 0-5 /HPF 11/19/2020 3:43 PM [facility] Squamous Epithelial Cells UA None Seen None Seen, 0-2, 3-5 /HPF 11/19/2020 3:43 PM [facility] Renal Epithelial Cells UA 0-2(A) None Seen /HPF 11/19/2020 3:43 PM [facility] Mucus UA 1+ /LPF 11/19/2020 3:43 PM [facility] Urine URINE SPECIMEN OBTAINED VIA [facility] / Unknown Collection / Unknown 11/19/2020 3:19 PM CDT 11/19/2020 3:27 PM CDT [facility] - 11/19/2020 3:43 PM CDT Everton Padilla MD LAB - URINALYSIS ORD ERABLES [facility] [address] [place] [address], [facility] [phone] * (ABNORMAL) HEPATIC FUNCTION PANEL (11/18/2020 11:46 PM CDT) Protein Total 6.1 6.0 - 8.3 g/dL 021 12:26 AM [facility] Albumin 3.3(L) 3.4 - 5.0 g/dL 11/19/2020 12:26 AM [facility] Bilirubin Total 2.2(H) 0.2 - 1.2 mg/dL 10/22 12:26 AM [facility] Bilirubin Conjugated 0.8(H) 0.1 - 0.5 mg/dL 11/19/2020 12:26 AM [facility] Bilirubin Unconjugated 1.4 Unconjugated Bilirubin is a calculated value: Reference ranges have not been established. mg/dL 11/19/2020 12:26 AM [facility] Alkaline Phosphatase 78 40 - 150 U/L 11/19/2020 12:26 AM CDT [facility] ALT 25 5 - 55 U/L 11/19/2020 12:26 AM CDT [facility] AST 52(H) 5 - 34 U/L 11/19/2020 12:26 AM CDT [facility] Albumin/Globulin Ratio 1.2 1.1 - 2.3 11/19/2020 12:26 AM CDT [facility] Blood BLOOD SPECIMEN / Unknown Venipuncture / Unknown 11/18/2020 11:46 PM CDT 11/18/2020 11:53 PM CDT Ezra Rod PA-C LAB - CHEMISTRY O RDERABLES Performing Organization Address [facility]/ZIP Co de Phone Number [address] [address], [place] [phone] * TRIGLYCERIDES BLOOD (11/18/2020 4:13 AM CDT) Triglycerides 131 <150 mg/dL 11/18/2020 4:59 AM CDT [facility] Comment: ATP III Classification of Triglycerides: ?<150 mg/dL: ??Normal ? 150 - 199 mg/dL: ??Borderline High ? 200 - 400 mg/dL: ??High ?>500 mg/dL: ??Very High Blood BLOOD SPECIMEN / Unknown Venipuncture / Unknown 11/18/2020 4:13 AM CDT 11/18/2020 4:17 AM CDT Ventura Baker MD LAB - CHEMISTRY ORDERABLES Performing Organization Address [facility]/ZIP Co de Phone Number [address] [address], [place] [phone] * EKG 12-LEAD (11/17/2020 4:16 AM CDT) Ventricular Rate 83 BPM [facility] Atrial Rate 83 BPM [facility] P-R Interval 138 ms [facility] QRS Duration ms 90 ms [facility] Q-T Interval ms 378 ms [facility] QTC Calculation (Bezet) 444 ms [facility] MUSE Calculated P Wayne 6 degrees [facility] MUSE Calculated R Wayne 19 degrees H MUSE Calculated T [place] 48 degrees [facility] MUSE Interpretation EKG NORMAL SINUS RHYTHM POOR R WAVE PROGRESSION BORDERLINE ECG NO PREVIOUS ECGS AVAILABLE Confirmed by fellow Lakia Giles ([id number]) on 11/18/2020 1:37:12 PM Confirmed by Ronal Hernandez ([id number]) on 11/19/2020 10:47:32 AM [facility] M[facility] 11/17/2020 4:16 AM CDT 11/19/2020 10:47 AM CDT Ventura Baker MD ECG ORDERABLES Performing Organization Address City/[facility]/ZIP Co de Phone Number [facility] * PREPARE (CROSSMATCH) RBC UNIT(S), 2 Units (11/16/2020 8:55 PM CDT) Unit Description AS1 LR PRBC [facility] LAB Unit ABO O [facility] Unit Rh POS [facility] Product Number R02 [facility] B LOOD BANK LAB Unit Donor # [id number] [facility] Unit Status [facility] Product [facility] [id number] [facility] B[facility] OD BANK LAB Blood Type Barcode 5100 [facility] Expiration Date [id number] S BLOOD BANK LAB Unit Description AS1 LR PRBC [facility] Unit ABO O [facility] Unit Rh POS [facility] B[facility]OD [facility] Product Number R02 [facility] B LOOD BANK LAB Unit Donor # [id number] [facility] Unit Status released [facility] BLOO D BANK LAB Product Code [id number] [facility] BLO OD BANK LAB Blood Type Barcode 5100 [facility] LAB Expiration Date [id number] S BLOOD BANK LAB Blood Bank BLOOD SPECIMEN / Unknown 11/16/2020 7:32 PM CDT Ventura Baker MD LAB - BLOOD BAN K ORDERABLES Performing Organization Address City/[facility]/ZIP Co de Phone Number [facility] LAB [address] [place] [address], [facility] [phone] * 2 Units (11/16/2020 8:55 PM CDT) Unit Description LR Whole BLood [facility] B[facility]OD [facility]ANK LAB Unit ABO O [facility] Unit Rh POS [facility] BLOOD [facility] Product Number [id number] [facility] B LOOD BANK LAB Unit Donor # [id number] [facility] Unit Status released [facility] BLOO D BANK LAB Product Code [id number] [facility] B[facility] OD [facility]ANK LAB Blood Type Barcode 5100 [facility] B[facility]OD [facility] LAB Expiration Date S BLOOD BANK LAB Unit Description LR Whole BLood [facility] Unit ABO O [facility] B[facility] Unit Rh POS [facility] B[facility]OD [facility] Product Number [id number] [facility] B LOOD BANK LAB Unit Donor # [id number] [facility] Unit Status released [facility] BLOO D BANK LAB Product Code [id number] [facility] BLO OD BANK LAB Blood Type Barcode 5100 [facility] LAB Expiration Date S BLOOD BANK LAB Blood Bank BLOOD SPECIMEN / Unknown 11/16/2020 7:32 PM CDT Ventura Baker MD LAB - BLOOD BAN K ORDERABLES Performing Organization Address [facility]/ZIP Co de Phone Number [facility] [address] [place] [address], [facility] [phone] * (ABNORMAL) URINE DRUG SCREEN IMMUNOASSAY (11/16/2020 8:28 PM CDT) Pathologist [facility] Amphetamines Screen Urine Negative Negative : < 1000 ng/mL 11/16/2020 8:50 PM CDT [facility] Barbiturates Screen Urine Negative Negative : < 200 ng/mL 11/16/2020 8:50 PM CDT [facility] Benzodiazepine Screen Urine Positive(A) Negative : < 200 ng/mL 11/16/2020 8:50 PM CDT [facility] Comment: Positive urine benzodiazepine screening results should be confirmed by another generally accepted non-immunological method such as gas chromatography or mass spectrometry. ? Opiates Urine Positive(A) Negative : < 300 ng/mL 11/16/2020 8:50 PM CDT [facility] Comment:Positive urine opiat e screening results should be confirmed by another generally accepted non-immunological method such as gas chromatography or mass spectrometry. Cocaine Metabolites Urine Negative Negative : < 300 ng/mL 11/16/2020 8:50 PM [facility] Phencyclidine Screen Urine Negative Negative : < 25 ng/ml 11/16/2020 8:50 PM [facility] Cannabinoids Screen Urine Positive(A) Negative : <50 ng/mL 11/16/2020 8:50 PM CDT [facility] Comment:Positive urine canna binoids (THC) screening results should be confirmed by another generally accepted non-immunological method such as gas chromatography or mass spectrometry. Methadone Screen Urine Negative Negative : < 300 ng/mL 11/16/2020 8:50 PM CDT [facility] Fentanyl Screen Urine Positive(A) Negative : <1.0 ng/mL 11/16/2020 8:50 PM T [facility] Comment:Positive urine fenta nyl screening results should be confirmed by another generally accepted non-immunological method such as gas chromatography or mass spectrometry. Urine URINE / Unknown Collection / Unknown 11/16/2020 8:28 PM CDT 11/16/2020 8:33 PM CDT Narrative [facility] - 11/16/2020 8:50 PM CDT The Urine Toxicology Screening Panel does not screen for Propoxyphene, Meprobamate, Carisoprodol, Trazodone, wheu-xgg-nnaulko medications and/or volatiles (Acetone, Isopropanol, Methanol or Ethylene Glycol). Ethanol, Salicylate, Acetaminophen, Tricyclic Antidepressants and several therapeutic drugs may be individually assayed in serum or plasma specimen. Toxicology testing by the [facility] is an aid to medical diagnosis and treatment of patients. No documented chain of custody was maintained. Results are intended to be used for clinical purposes only. ? Ventura Baker MD LAB - URINE EMILY LOPEZ ORDERABLES [facility] [address] [place] [address], [place] [phone] * BLOOD TYPE VERIFICATION (11/16/2020 8:15 PM CDT) ABO Rh O POS 11/16/2020 8:5 1 PM CDT [facility] Blood Bank BLOOD SPECIMEN / Unknown Venipuncture / Unknown 11/16/2020 8:15 PM CDT 11/16/2020 8:25 PM CDT Ventura Baker MD LAB - BLOOD BAN K ORDERABLES Performing Organization Address City/[facility] Co de Phone Number [facility] [address] [place] [address], [place] [phone] * CT FACIAL BONES WO CONTRAST - Facial trauma, fx suspected, blunt (11/16/2020 7:59 PM CDT) Anatomical Region Laterality Modality Head Computed Tomogra phy 11/17/2020 11:0 8 AM CDT Impressions 11/17/2020 11:28 AM CDT IMPRESSION: 1.Few subcentimeter foci of parenchymal hemorrhage in the left medial parietal lobe. No significant mass effect or surrounding edema. 2.Age indeterminate fracture of the right nasal process of maxilla. 3.No fracture of the cervical, thoracic and lumbar spine. This report was electronically signed by ARLETH XIONG ??on 11/17/2020 11:28 AM . Narrative 11/17/2020 11:28 AM CDT EXAMINATION: Computed tomography (CT) of the head without intravenous contrast CT scan of the facial bones without intravenous contrast CT of the cervical spine without intravenous contrast CT of the thoracic spine CT of the lumbar spine HISTORY: Trauma TECHNIQUE: CT of the head, facial bones and cervical spine was performed without contrast according to standard protocol. Sagittal, axial and coronal images of the thoracic and lumbar spines were reformatted from the concurrently obtained CT scan of the chest, abdomen and pelvis. COMPARISON: No prior study is available for comparison at the time of this dictation.. FINDINGS: BRAIN - There are a few subcentimeter foci of parenchymal hemorrhage in the left medial parietal lobe. There is no significant mass effect or surrounding edema. Mild chronic microvascular ischemic changes are noted. ??There is likely dilated perivascular space in the right inferior lentiform nucleus. There is no midline shift. There is no hydrocephalus or extra-axial fluid collection. CRANIOFACIAL BONES/SOFT TISSUES (and Temporal bones) - There is left scalp swelling/laceration and left periorbital soft tissue swelling extending to the supraorbital. The calvarium is intact. Specifically, there is no temporal bone fracture. There is a nondisplaced age indeterminate fracture of the right nasal process of maxilla. The orbits are within normal limits. There is no intraorbital hematoma. The paranasal sinuses are clear. ??The mastoid air cells and tympanic cavities are aerated. ??Cerumen is seen in the external auditory canals bilaterally. CERVICAL, THORACIC AND LUMBAR SPINE- There is no fracture. The prevertebral soft tissues are within normal limits. No aggressive appearing osseous lytic or sclerotic lesions are seen. Cervical spine: The curvature is maintained without subluxation. There is multilevel degenerative disease with significant hypertrophy of the upper right facet joints. There is no critical spinal canal stenosis. There is moderate stenosis of the right C3-4 neural foramen. Thoracic spine: The spinal curvature is maintained without subluxation. Mild degenerative changes are seen without spinal canal or foraminal stenosis. Lumbar spine: There is slight dextro scoliosis of the lumbar spine, centered at L3 with slight left lateral listhesis of L3 relative to L4. There are no aggressive appearing lytic or sclerotic lesions. Degenerative changes are seen with no moderate spinal canal stenosis at L3-4 and possibly at L4-5. There is mild to moderate stenosis of bilateral L4-5 and L5-S1 neural foramina. Severe facet hypertrophy is seen at bilateral L4-5 levels. Procedure Note Arleth Xiong MD - 11/17/2020 EXAMINATION: Computed tomography (CT) of the head without intravenous contrast CT scan of the facial bones without intravenous contrast CT of the cervical spine without intravenous contrast CT of the thoracic spine CT of the lumbar spine HISTORY: Trauma TECHNIQUE: CT of the head, facial bones and cervical spine was performed without contrast according to standard protocol. Sagittal, axial and coronal images of the thoracic and lumbar spines were reformatted fromthe concurrently obtained CT scan of the chest, abdomen and pelvis. COMPARISON: No prior study is available for comparison at the time ofthis dictation.. FINDINGS: BRAIN - There are a few subcentimeter foci of parenchymal hemorrhage in the left medial parietal lobe. There is no significant mass effect or surrounding edema. Mild chronic microvascular ischemic changes are noted. There is likely dilated perivascular space in the right inferior lentiformnucleus. There is no midline shift. There is no hydrocephalus or extra-axialfluid collection. CRANIOFACIAL BONES/SOFT TISSUES (and Temporal bones) - There is left scalp swelling/laceration and left periorbital soft tissue swelling extending to the supraorbital. The calvarium is intact. Specifically, there is no temporal bone fracture. There is anondisplaced age indeterminate fracture of the right nasal process of maxilla. The orbits are within normal limits. There is no intraorbital hematoma. The paranasal sinuses are clear. The mastoid air cells and tympanic cavities are aerated. Cerumen is seen in the external auditory canals bilaterally. CERVICAL, THORACIC AND LUMBAR SPINE- There is no fracture. The prevertebral soft tissues are within normal limits. No aggressive appearing osseous lytic or sclerotic lesions are seen. Cervical spine: The curvature is maintained without subluxation. Thereis multilevel degenerative disease with significant hypertrophy of theupper right facet joints. There is no critical spinal canal stenosis. There is moderate stenosis of the right C3-4 neural foramen. Thoracic spine: The spinal curvature is maintained without subluxation. Mild degenerative changes are seen without spinal canal or foraminal stenosis. Lumbar spine: There is slight dextro scoliosis of the lumbar spine, centered at L3 with slight left lateral listhesis of L3 relative to L4. There are no aggressive appearing lytic or sclerotic lesions.Degenerative changes are seen with no moderate spinal canal stenosis at L3-4 and possibly at L4-5. There is mild to moderate stenosis of bilateral L4-5and L5-S1 neural foramina. Severe facet hypertrophy is seen at bilateralL4-5 levels. IMPRESSION: 1.Few subcentimeter foci of parenchymal hemorrhage in the left medial parietal lobe. No significant mass effect or surrounding edema. 2.Age indeterminate fracture of the right nasal process of maxilla. 3.No fracture of the cervical, thoracic and lumbar spine. This report was electronically signed by ARLETH XIONG on 11/17/2020 11:28 AM . Ventura Baker MD CT ORDERABLES * CT CHEST ABDOMEN PELVIS W CONT - Abdomen-pelvis trauma, blunt or penetrating (11/16/2020 7:56 PM CDT) Anatomical Region Laterality Modality Chest, Abdomen, Pelvis Computed Tomography 11/16/2020 7:25 PM CDT Impressions 11/17/2020 8:32 AM CDT Impression: 1.Fat stranding of the soft tissues of the left hip may represent a contusion. Otherwise, no acute process in the chest, abdomen or pelvis. 2.Splenic artery aneurysm measuring 2.7 x 2.4 cm. Findings were discussed with Dr. Kwon. Report drafted by Geo Chavez (resident) I, Dr. DUY WILDER MD have personally reviewed and interpreted this examination/study. This report was electronically signed by DUY WILDER MD ??on 11/17/2020 8:32 AM . Narrative 11/17/2020 8:32 AM CDT Procedure Information DATE: 11/16/2020 7:01 PM EXAMINATION: Computed tomography (CT) of the chest, abdomen, and pelvis with contrast TECHNIQUE: CT of the chest, abdomen, and pelvis was performed after the uneventful administration of 100 mL of Isovue 370 intravenous contrast according to standard protocol. Clinical Information HISTORY: Trauma COMPARISON: None. Findings Chest: Lines/Tubes: The endotracheal tube terminates in the midthoracic trachea. Enteric tube terminates in the gastric body. Lower neck and axillae: Normal. Mediastinum and Leila: No enlarged lymph nodes are present. Heart and Pericardium: The cardiac chambers are normal in size. No pericardial fluid or thickening is present. Minimal atherosclerotic calcifications of the coronary arteries. Lung Parenchyma, Airways, and Pleural Spaces: There is no pleural effusion, focal consolidation or pneumothorax. There is mild atelectasis in the lung bases. Abdomen/pelvis: Hepatobiliary: Multiple tiny hypoattenuating lesions within the liver parenchyma are too small to characterize but statistically represent cysts. Pancreas: Normal. Spleen: There is a nonthrombosed splenic artery aneurysm which measures 2.7 x 2.4 cm. Kidneys: Normal. Adrenals: Normal. Retroperitoneum: Normal. Peritoneum: There is a calcification within the pelvis. Gastrointestinal: The stomach and visualized loops of bowel are unremarkable. Appendix: Normal. Pelvic Structures: Normal. Vasculature: Scattered atherosclerotic vasculature changes. Bones: The visible osseous structures are intact. Degenerative changes are seen in the spine. Soft tissues: There is fat stranding within the soft tissues of the left hip. Procedure Note Duy Wilder MD - 11/17/2020 Procedure Information DATE: 11/16/2020 7:01 PM EXAMINATION: Computed tomography (CT) of the chest, abdomen, and pelvis with contrast TECHNIQUE: CT of the chest, abdomen, and pelvis was performed after the uneventful administration of 100 mL of Isovue 370 intravenous contrast according to standard protocol. Clinical Information HISTORY: Trauma COMPARISON: None. Findings Chest: Lines/Tubes: The endotracheal tube terminates in the midthoracic trachea. Enterictube terminates in the gastric body. Lower neck and axillae: Normal. Mediastinum and Leila: No enlarged lymph nodes are present. Heart and Pericardium: The cardiac chambers are normal in size. No pericardial fluid or thickening is present. Minimal atherosclerotic calcifications of the coronary arteries. Lung Parenchyma, Airways, and Pleural Spaces: There is no pleural effusion, focal consolidation or pneumothorax. There is mild atelectasis in the lung bases. Abdomen/pelvis: Hepatobiliary: Multiple tiny hypoattenuating lesions within the liver parenchyma aretoo small to characterize but statistically represent cysts. Pancreas: Normal. Spleen: There is a nonthrombosed splenic artery aneurysm which measures 2.7 x2.4 cm. Kidneys: Normal. Adrenals: Normal. Retroperitoneum: Normal. Peritoneum: There is a calcification within the pelvis. Gastrointestinal: The stomach and visualized loops of bowel are unremarkable. Appendix: Normal. Pelvic Structures: Normal. Vasculature: Scattered atherosclerotic vasculature changes. Bones: The visible osseous structures are intact. Degenerative changes are seen in the spine. Soft tissues: There is fat stranding within the soft tissues of the left hip. Impression: 1.Fat stranding of the soft tissues of the left hip may represent a contusion. Otherwise, no acute process in the chest, abdomen or pelvis. 2.Splenic artery aneurysm measuring 2.7 x 2.4 cm. Findings were discussed with Dr. Kwon. Report drafted by Geo Chavez (resident) I, Dr. DUY WILDER MD have personally reviewed and interpreted this examination/study. This report was electronically signed by DUY WILDER MD on11/17/2020 8:32 AM . Ventura Baker MD CT ORDERABLES * CT TEMPORAL BONES WO CONTRAST (11/16/2020 7:56 PM CDT) Anatomical Region Laterality Modality Head Computed Tomogra phy 11/17/2020 11:0 8 AM CDT Impressions 11/17/2020 11:28 AM CDT IMPRESSION: 1.Few subcentimeter foci of parenchymal hemorrhage in the left medial parietal lobe. No significant mass effect or surrounding edema. 2.Age indeterminate fracture of the right nasal process of maxilla. 3.No fracture of the cervical, thoracic and lumbar spine. This report was electronically signed by ARLETH XIONG ??on 11/17/2020 11:28 AM . Narrative 11/17/2020 11:28 AM CDT EXAMINATION: Computed tomography (CT) of the head without intravenous contrast CT scan of the facial bones without intravenous contrast CT of the cervical spine without intravenous contrast CT of the thoracic spine CT of the lumbar spine HISTORY: Trauma TECHNIQUE: CT of the head, facial bones and cervical spine was performed without contrast according to standard protocol. Sagittal, axial and coronal images of the thoracic and lumbar spines were reformatted from the concurrently obtained CT scan of the chest, abdomen and pelvis. COMPARISON: No prior study is available for comparison at the time of this dictation.. FINDINGS: BRAIN - There are a few subcentimeter foci of parenchymal hemorrhage in the left medial parietal lobe. There is no significant mass effect or surrounding edema. Mild chronic microvascular ischemic changes are noted. ??There is likely dilated perivascular space in the right inferior lentiform nucleus. There is no midline shift. There is no hydrocephalus or extra-axial fluid collection. CRANIOFACIAL BONES/SOFT TISSUES (and Temporal bones) - There is left scalp swelling/laceration and left periorbital soft tissue swelling extending to the supraorbital. The calvarium is intact. Specifically, there is no temporal bone fracture. There is a nondisplaced age indeterminate fracture of the right nasal process of maxilla. The orbits are within normal limits. There is no intraorbital hematoma. The paranasal sinuses are clear. ??The mastoid air cells and tympanic cavities are aerated. ??Cerumen is seen in the external auditory canals bilaterally. CERVICAL, THORACIC AND LUMBAR SPINE- There is no fracture. The prevertebral soft tissues are within normal limits. No aggressive appearing osseous lytic or sclerotic lesions are seen. Cervical spine: The curvature is maintained without subluxation. There is multilevel degenerative disease with significant hypertrophy of the upper right facet joints. There is no critical spinal canal stenosis. There is moderate stenosis of the right C3-4 neural foramen. Thoracic spine: The spinal curvature is maintained without subluxation. Mild degenerative changes are seen without spinal canal or foraminal stenosis. Lumbar spine: There is slight dextro scoliosis of the lumbar spine, centered at L3 with slight left lateral listhesis of L3 relative to L4. There are no aggressive appearing lytic or sclerotic lesions. Degenerative changes are seen with no moderate spinal canal stenosis at L3-4 and possibly at L4-5. There is mild to moderate stenosis of bilateral L4-5 and L5-S1 neural foramina. Severe facet hypertrophy is seen at bilateral L4-5 levels. Procedure Note Arleth Xiong MD - 11/17/2020 EXAMINATION: Computed tomography (CT) of the head without intravenous contrast CT scan of the facial bones without intravenous contrast CT of the cervical spine without intravenous contrast CT of the thoracic spine CT of the lumbar spine HISTORY: Trauma TECHNIQUE: CT of the head, facial bones and cervical spine was performed without contrast according to standard protocol. Sagittal, axial and coronal images of the thoracic and lumbar spines were reformatted fromthe concurrently obtained CT scan of the chest, abdomen and pelvis. COMPARISON: No prior study is available for comparison at the time ofthis dictation.. FINDINGS: BRAIN - There are a few subcentimeter foci of parenchymal hemorrhage in the left medial parietal lobe. There is no significant mass effect or surrounding edema. Mild chronic microvascular ischemic changes are noted. There is likely dilated perivascular space in the right inferior lentiformnucleus. There is no midline shift. There is no hydrocephalus or extra-axialfluid collection. CRANIOFACIAL BONES/SOFT TISSUES (and Temporal bones) - There is left scalp swelling/laceration and left periorbital soft tissue swelling extending to the supraorbital. The calvarium is intact. Specifically, there is no temporal bone fracture. There is anondisplaced age indeterminate fracture of the right nasal process of maxilla. The orbits are within normal limits. There is no intraorbital hematoma. The paranasal sinuses are clear. The mastoid air cells and tympanic cavities are aerated. Cerumen is seen in the external auditory canals bilaterally. CERVICAL, THORACIC AND LUMBAR SPINE- There is no fracture. The prevertebral soft tissues are within normal limits. No aggressive appearing osseous lytic or sclerotic lesions are seen. Cervical spine: The curvature is maintained without subluxation. Thereis multilevel degenerative disease with significant hypertrophy of theupper right facet joints. There is no critical spinal canal stenosis. There is moderate stenosis of the right C3-4 neural foramen. Thoracic spine: The spinal curvature is maintained without subluxation. Mild degenerative changes are seen without spinal canal or foraminal stenosis. Lumbar spine: There is slight dextro scoliosis of the lumbar spine, centered at L3 with slight left lateral listhesis of L3 relative to L4. There are no aggressive appearing lytic or sclerotic lesions.Degenerative changes are seen with no moderate spinal canal stenosis at L3-4 and possibly at L4-5. There is mild to moderate stenosis of bilateral L4-5and L5-S1 neural foramina. Severe facet hypertrophy is seen at bilateralL4-5 levels. IMPRESSION: 1.Few subcentimeter foci of parenchymal hemorrhage in the left medial parietal lobe. No significant mass effect or surrounding edema. 2.Age indeterminate fracture of the right nasal process of maxilla. 3.No fracture of the cervical, thoracic and lumbar spine. This report was electronically signed by ARLETH XIONG on 11/17/2020 11:28 AM . Ventura Baker MD CT ORDERABLES * CT LUMBAR SPINE WO CONTRAST - T/L-spine trauma, Spine fracture (11/16/2020 7:56 PM CDT) Anatomical Region Laterality Modality Spine Computed Tomogra phy 11/17/2020 11:0 8 AM CDT Impressions 11/17/2020 11:28 AM CDT IMPRESSION: 1.Few subcentimeter foci of parenchymal hemorrhage in the left medial parietal lobe. No significant mass effect or surrounding edema. 2.Age indeterminate fracture of the right nasal process of maxilla. 3.No fracture of the cervical, thoracic and lumbar spine. This report was electronically signed by ARLETH XIONG ??on 11/17/2020 11:28 AM . Narrative 11/17/2020 11:28 AM CDT EXAMINATION: Computed tomography (CT) of the head without intravenous contrast CT scan of the facial bones without intravenous contrast CT of the cervical spine without intravenous contrast CT of the thoracic spine CT of the lumbar spine HISTORY: Trauma TECHNIQUE: CT of the head, facial bones and cervical spine was performed without contrast according to standard protocol. Sagittal, axial and coronal images of the thoracic and lumbar spines were reformatted from the concurrently obtained CT scan of the chest, abdomen and pelvis. COMPARISON: No prior study is available for comparison at the time of this dictation.. FINDINGS: BRAIN - There are a few subcentimeter foci of parenchymal hemorrhage in the left medial parietal lobe. There is no significant mass effect or surrounding edema. Mild chronic microvascular ischemic changes are noted. ??There is likely dilated perivascular space in the right inferior lentiform nucleus. There is no midline shift. There is no hydrocephalus or extra-axial fluid collection. CRANIOFACIAL BONES/SOFT TISSUES (and Temporal bones) - There is left scalp swelling/laceration and left periorbital soft tissue swelling extending to the supraorbital. The calvarium is intact. Specifically, there is no temporal bone fracture. There is a nondisplaced age indeterminate fracture of the right nasal process of maxilla. The orbits are within normal limits. There is no intraorbital hematoma. The paranasal sinuses are clear. ??The mastoid air cells and tympanic cavities are aerated. ??Cerumen is seen in the external auditory canals bilaterally. CERVICAL, THORACIC AND LUMBAR SPINE- There is no fracture. The prevertebral soft tissues are within normal limits. No aggressive appearing osseous lytic or sclerotic lesions are seen. Cervical spine: The curvature is maintained without subluxation. There is multilevel degenerative disease with significant hypertrophy of the upper right facet joints. There is no critical spinal canal stenosis. There is moderate stenosis of the right C3-4 neural foramen. Thoracic spine: The spinal curvature is maintained without subluxation. Mild degenerative changes are seen without spinal canal or foraminal stenosis. Lumbar spine: There is slight dextro scoliosis of the lumbar spine, centered at L3 with slight left lateral listhesis of L3 relative to L4. There are no aggressive appearing lytic or sclerotic lesions. Degenerative changes are seen with no moderate spinal canal stenosis at L3-4 and possibly at L4-5. There is mild to moderate stenosis of bilateral L4-5 and L5-S1 neural foramina. Severe facet hypertrophy is seen at bilateral L4-5 levels. Procedure Note Arleth Xiong MD - 11/17/2020 EXAMINATION: Computed tomography (CT) of the head without intravenous contrast CT scan of the facial bones without intravenous contrast CT of the cervical spine without intravenous contrast CT of the thoracic spine CT of the lumbar spine HISTORY: Trauma TECHNIQUE: CT of the head, facial bones and cervical spine was performed without contrast according to standard protocol. Sagittal, axial and coronal images of the thoracic and lumbar spines were reformatted fromthe concurrently obtained CT scan of the chest, abdomen and pelvis. COMPARISON: No prior study is available for comparison at the time ofthis dictation.. FINDINGS: BRAIN - There are a few subcentimeter foci of parenchymal hemorrhage in the left medial parietal lobe. There is no significant mass effect or surrounding edema. Mild chronic microvascular ischemic changes are noted. There is likely dilated perivascular space in the right inferior lentiformnucleus. There is no midline shift. There is no hydrocephalus or extra-axialfluid collection. CRANIOFACIAL BONES/SOFT TISSUES (and Temporal bones) - There is left scalp swelling/laceration and left periorbital soft tissue swelling extending to the supraorbital. The calvarium is intact. Specifically, there is no temporal bone fracture. There is anondisplaced age indeterminate fracture of the right nasal process of maxilla. The orbits are within normal limits. There is no intraorbital hematoma. The paranasal sinuses are clear. The mastoid air cells and tympanic cavities are aerated. Cerumen is seen in the external auditory canals bilaterally. CERVICAL, THORACIC AND LUMBAR SPINE- There is no fracture. The prevertebral soft tissues are within normal limits. No aggressive appearing osseous lytic or sclerotic lesions are seen. Cervical spine: The curvature is maintained without subluxation. Thereis multilevel degenerative disease with significant hypertrophy of theupper right facet joints. There is no critical spinal canal stenosis. There is moderate stenosis of the right C3-4 neural foramen. Thoracic spine: The spinal curvature is maintained without subluxation. Mild degenerative changes are seen without spinal canal or foraminal stenosis. Lumbar spine: There is slight dextro scoliosis of the lumbar spine, centered at L3 with slight left lateral listhesis of L3 relative to L4. There are no aggressive appearing lytic or sclerotic lesions.Degenerative changes are seen with no moderate spinal canal stenosis at L3-4 and possibly at L4-5. There is mild to moderate stenosis of bilateral L4-5and L5-S1 neural foramina. Severe facet hypertrophy is seen at bilateralL4-5 levels. IMPRESSION: 1.Few subcentimeter foci of parenchymal hemorrhage in the left medial parietal lobe. No significant mass effect or surrounding edema. 2.Age indeterminate fracture of the right nasal process of maxilla. 3.No fracture of the cervical, thoracic and lumbar spine. This report was electronically signed by ARLETH XIONG on 11/17/2020 11:28 AM . Ventura Baker MD CT ORDERABLES * CT THORACIC SPINE WO CONTRAST - T/L-spine trauma, spine fracture (11/16/2020 7:56 PM CDT) Anatomical Region Laterality Modality Spine Computed Tomogra phy 11/17/2020 11:0 8 AM CDT Impressions 11/17/2020 11:28 AM CDT IMPRESSION: 1.Few subcentimeter foci of parenchymal hemorrhage in the left medial parietal lobe. No significant mass effect or surrounding edema. 2.Age indeterminate fracture of the right nasal process of maxilla. 3.No fracture of the cervical, thoracic and lumbar spine. This report was electronically signed by ARLETH XIONG ??on 11/17/2020 11:28 AM . Narrative 11/17/2020 11:28 AM CDT EXAMINATION: Computed tomography (CT) of the head without intravenous contrast CT scan of the facial bones without intravenous contrast CT of the cervical spine without intravenous contrast CT of the thoracic spine CT of the lumbar spine HISTORY: Trauma TECHNIQUE: CT of the head, facial bones and cervical spine was performed without contrast according to standard protocol. Sagittal, axial and coronal images of the thoracic and lumbar spines were reformatted from the concurrently obtained CT scan of the chest, abdomen and pelvis. COMPARISON: No prior study is available for comparison at the time of this dictation.. FINDINGS: BRAIN - There are a few subcentimeter foci of parenchymal hemorrhage in the left medial parietal lobe. There is no significant mass effect or surrounding edema. Mild chronic microvascular ischemic changes are noted. ??There is likely dilated perivascular space in the right inferior lentiform nucleus. There is no midline shift. There is no hydrocephalus or extra-axial fluid collection. CRANIOFACIAL BONES/SOFT TISSUES (and Temporal bones) - There is left scalp swelling/laceration and left periorbital soft tissue swelling extending to the supraorbital. The calvarium is intact. Specifically, there is no temporal bone fracture. There is a nondisplaced age indeterminate fracture of the right nasal process of maxilla. The orbits are within normal limits. There is no intraorbital hematoma. The paranasal sinuses are clear. ??The mastoid air cells and tympanic cavities are aerated. ??Cerumen is seen in the external auditory canals bilaterally. CERVICAL, THORACIC AND LUMBAR SPINE- There is no fracture. The prevertebral soft tissues are within normal limits. No aggressive appearing osseous lytic or sclerotic lesions are seen. Cervical spine: The curvature is maintained without subluxation. There is multilevel degenerative disease with significant hypertrophy of the upper right facet joints. There is no critical spinal canal stenosis. There is moderate stenosis of the right C3-4 neural foramen. Thoracic spine: The spinal curvature is maintained without subluxation. Mild degenerative changes are seen without spinal canal or foraminal stenosis. Lumbar spine: There is slight dextro scoliosis of the lumbar spine, centered at L3 with slight left lateral listhesis of L3 relative to L4. There are no aggressive appearing lytic or sclerotic lesions. Degenerative changes are seen with no moderate spinal canal stenosis at L3-4 and possibly at L4-5. There is mild to moderate stenosis of bilateral L4-5 and L5-S1 neural foramina. Severe facet hypertrophy is seen at bilateral L4-5 levels. Procedure Note Arleth Xiong MD - 11/17/2020 EXAMINATION: Computed tomography (CT) of the head without intravenous contrast CT scan of the facial bones without intravenous contrast CT of the cervical spine without intravenous contrast CT of the thoracic spine CT of the lumbar spine HISTORY: Trauma TECHNIQUE: CT of the head, facial bones and cervical spine was performed without contrast according to standard protocol. Sagittal, axial and coronal images of the thoracic and lumbar spines were reformatted fromthe concurrently obtained CT scan of the chest, abdomen and pelvis. COMPARISON: No prior study is available for comparison at the time ofthis dictation.. FINDINGS: BRAIN - There are a few subcentimeter foci of parenchymal hemorrhage in the left medial parietal lobe. There is no significant mass effect or surrounding edema. Mild chronic microvascular ischemic changes are noted. There is likely dilated perivascular space in the right inferior lentiformnucleus. There is no midline shift. There is no hydrocephalus or extra-axialfluid collection. CRANIOFACIAL BONES/SOFT TISSUES (and Temporal bones) - There is left scalp swelling/laceration and left periorbital soft tissue swelling extending to the supraorbital. The calvarium is intact. Specifically, there is no temporal bone fracture. There is anondisplaced age indeterminate fracture of the right nasal process of maxilla. The orbits are within normal limits. There is no intraorbital hematoma. The paranasal sinuses are clear. The mastoid air cells and tympanic cavities are aerated. Cerumen is seen in the external auditory canals bilaterally. CERVICAL, THORACIC AND LUMBAR SPINE- There is no fracture. The prevertebral soft tissues are within normal limits. No aggressive appearing osseous lytic or sclerotic lesions are seen. Cervical spine: The curvature is maintained without subluxation. Thereis multilevel degenerative disease with significant hypertrophy of theupper right facet joints. There is no critical spinal canal stenosis. There is moderate stenosis of the right C3-4 neural foramen. Thoracic spine: The spinal curvature is maintained without subluxation. Mild degenerative changes are seen without spinal canal or foraminal stenosis. Lumbar spine: There is slight dextro scoliosis of the lumbar spine, centered at L3 with slight left lateral listhesis of L3 relative to L4. There are no aggressive appearing lytic or sclerotic lesions.Degenerative changes are seen with no moderate spinal canal stenosis at L3-4 and possibly at L4-5. There is mild to moderate stenosis of bilateral L4-5and L5-S1 neural foramina. Severe facet hypertrophy is seen at bilateralL4-5 levels. IMPRESSION: 1.Few subcentimeter foci of parenchymal hemorrhage in the left medial parietal lobe. No significant mass effect or surrounding edema. 2.Age indeterminate fracture of the right nasal process of maxilla. 3.No fracture of the cervical, thoracic and lumbar spine. This report was electronically signed by ARLETH XIONG on 11/17/2020 11:28 AM . Ventura Baker MD CT ORDERABLES * CT CERVICAL SPINE WO CONTRAST - C-Spine Trauma, Spine fracture (11/16/2020 7:56 PM CDT) Anatomical Region Laterality Modality Spine Computed Tomogra phy 11/17/2020 11:0 8 AM CDT Impressions 11/17/2020 11:28 AM CDT IMPRESSION: 1.Few subcentimeter foci of parenchymal hemorrhage in the left medial parietal lobe. No significant mass effect or surrounding edema. 2.Age indeterminate fracture of the right nasal process of maxilla. 3.No fracture of the cervical, thoracic and lumbar spine. This report was electronically signed by ARLETH XIONG ??on 11/17/2020 11:28 AM . Narrative 11/17/2020 11:28 AM CDT EXAMINATION: Computed tomography (CT) of the head without intravenous contrast CT scan of the facial bones without intravenous contrast CT of the cervical spine without intravenous contrast CT of the thoracic spine CT of the lumbar spine HISTORY: Trauma TECHNIQUE: CT of the head, facial bones and cervical spine was performed without contrast according to standard protocol. Sagittal, axial and coronal images of the thoracic and lumbar spines were reformatted from the concurrently obtained CT scan of the chest, abdomen and pelvis. COMPARISON: No prior study is available for comparison at the time of this dictation.. FINDINGS: BRAIN - There are a few subcentimeter foci of parenchymal hemorrhage in the left medial parietal lobe. There is no significant mass effect or surrounding edema. Mild chronic microvascular ischemic changes are noted. ??There is likely dilated perivascular space in the right inferior lentiform nucleus. There is no midline shift. There is no hydrocephalus or extra-axial fluid collection. CRANIOFACIAL BONES/SOFT TISSUES (and Temporal bones) - There is left scalp swelling/laceration and left periorbital soft tissue swelling extending to the supraorbital. The calvarium is intact. Specifically, there is no temporal bone fracture. There is a nondisplaced age indeterminate fracture of the right nasal process of maxilla. The orbits are within normal limits. There is no intraorbital hematoma. The paranasal sinuses are clear. ??The mastoid air cells and tympanic cavities are aerated. ??Cerumen is seen in the external auditory canals bilaterally. CERVICAL, THORACIC AND LUMBAR SPINE- There is no fracture. The prevertebral soft tissues are within normal limits. No aggressive appearing osseous lytic or sclerotic lesions are seen. Cervical spine: The curvature is maintained without subluxation. There is multilevel degenerative disease with significant hypertrophy of the upper right facet joints. There is no critical spinal canal stenosis. There is moderate stenosis of the right C3-4 neural foramen. Thoracic spine: The spinal curvature is maintained without subluxation. Mild degenerative changes are seen without spinal canal or foraminal stenosis. Lumbar spine: There is slight dextro scoliosis of the lumbar spine, centered at L3 with slight left lateral listhesis of L3 relative to L4. There are no aggressive appearing lytic or sclerotic lesions. Degenerative changes are seen with no moderate spinal canal stenosis at L3-4 and possibly at L4-5. There is mild to moderate stenosis of bilateral L4-5 and L5-S1 neural foramina. Severe facet hypertrophy is seen at bilateral L4-5 levels. Procedure Note Arleth Xiong MD - 11/17/2020 EXAMINATION: Computed tomography (CT) of the head without intravenous contrast CT scan of the facial bones without intravenous contrast CT of the cervical spine without intravenous contrast CT of the thoracic spine CT of the lumbar spine HISTORY: Trauma TECHNIQUE: CT of the head, facial bones and cervical spine was performed without contrast according to standard protocol. Sagittal, axial and coronal images of the thoracic and lumbar spines were reformatted fromthe concurrently obtained CT scan of the chest, abdomen and pelvis. COMPARISON: No prior study is available for comparison at the time ofthis dictation.. FINDINGS: BRAIN - There are a few subcentimeter foci of parenchymal hemorrhage in the left medial parietal lobe. There is no significant mass effect or surrounding edema. Mild chronic microvascular ischemic changes are noted. There is likely dilated perivascular space in the right inferior lentiformnucleus. There is no midline shift. There is no hydrocephalus or extra-axialfluid collection. CRANIOFACIAL BONES/SOFT TISSUES (and Temporal bones) - There is left scalp swelling/laceration and left periorbital soft tissue swelling extending to the supraorbital. The calvarium is intact. Specifically, there is no temporal bone fracture. There is anondisplaced age indeterminate fracture of the right nasal process of maxilla. The orbits are within normal limits. There is no intraorbital hematoma. The paranasal sinuses are clear. The mastoid air cells and tympanic cavities are aerated. Cerumen is seen in the external auditory canals bilaterally. CERVICAL, THORACIC AND LUMBAR SPINE- There is no fracture. The prevertebral soft tissues are within normal limits. No aggressive appearing osseous lytic or sclerotic lesions are seen. Cervical spine: The curvature is maintained without subluxation. Thereis multilevel degenerative disease with significant hypertrophy of theupper right facet joints. There is no critical spinal canal stenosis. There is moderate stenosis of the right C3-4 neural foramen. Thoracic spine: The spinal curvature is maintained without subluxation. Mild degenerative changes are seen without spinal canal or foraminal stenosis. Lumbar spine: There is slight dextro scoliosis of the lumbar spine, centered at L3 with slight left lateral listhesis of L3 relative to L4. There are no aggressive appearing lytic or sclerotic lesions.Degenerative changes are seen with no moderate spinal canal stenosis at L3-4 and possibly at L4-5. There is mild to moderate stenosis of bilateral L4-5and L5-S1 neural foramina. Severe facet hypertrophy is seen at bilateralL4-5 levels. IMPRESSION: 1.Few subcentimeter foci of parenchymal hemorrhage in the left medial parietal lobe. No significant mass effect or surrounding edema. 2.Age indeterminate fracture of the right nasal process of maxilla. 3.No fracture of the cervical, thoracic and lumbar spine. This report was electronically signed by ARLETH XIONG on 11/17/2020 11:28 AM . Ventura Baker MD CT ORDERABLES * TEG 6 GLOBAL HEMOSTASIS W/ LYSIS (11/16/2020 7:13 PM CDT) Citrated Kaolin R (Reaction Time) 6.0 4.6 - 9.1 min 11/16/2020 8:51 PM CDT [facility] Citrated Kaolin LY30 (Lysis) 0.4 0.0 - 2.6 % 11/16/2020 8:51 PM T [facility] Citrated RapidTEG MA (Max Amplitude) 64 52 - 70 mm 11/16/2020 8:51 PM T [facility] Citrated Functional Fibrinogen MA (Max Amplitude) 19 15 - 32 mm 11/16/2020 8:51 PM T [facility] Blood BLOOD SPECIMEN / Unknown Venipuncture / Unknown 11/16/2020 7:13 PM CDT 11/16/2020 7:30 PM CDT Ventura Baker MD LAB - HEMATOLOG Y ORDERABLES Performing Organization Address City/State/[facility] Co de Phone Number [address] [address], [facility] [phone] * (ABNORMAL) TEG 6S PLATELET MAPPING (11/16/2020 7:13 PM CDT) TEGPLM (Max Amplitude) Koalin 65 53 - 68 mm 11/16/2020 8:51 PM [facility] TEGPLM (Max Amplitude) ACTF 10 2 - 19 mm 11/16/2020 8:51 PM [facility] TEGPLM (Max Amplitude) ADP 49 45 - 69 mm 11/16/2020 8:51 PM [facility] TEGPLM (Max Amplitude) AA 55 51 - 71 mm 11/16/2020 8:51 PM [facility] TEGPLM %Inhibition ADP 30(H) 0 - 17 % 11/16/2020 8:51 PM [facility] TEGPLM %Inhibition AA 18(H) 0 - 11 % 11/16/2020 8:51 PM [facility] TEGPLM %Aggregation ADP 70(L) 83 - 100 % 11/16/2020 8:51 PM [facility] TEGPLM % Aggregation AA 82(L) 89 - 100 % 11/16/2020 8:51 PM CDT [facility] Blood BLOOD SPECIMEN / Unknown Venipuncture / Unknown 11/16/2020 7:13 PM CDT 11/16/2020 7:30 PM CDT Ventura Baker MD LAB - HEMATOLOG Y ORDERABLES Performing Organization Address [facility]/State/[facility] Co de Phone Number [facility] [address] [place] [address], [facility] [phone] * XR PELVIS 1 OR 2VW (11/16/2020 7:12 PM CDT) Anatomical Region Laterality Modality Pelvis Radiographic Rosa ging 11/17/2020 7:37 AM CDT Impressions 11/17/2020 10:28 AM CDT IMPRESSION: No acute fracture or dislocation identified. Dictated by Jessica Felipe MD (residential field manager). Dr. LADONNA Hilton M.D. have personally reviewed and interpreted this examination/study. This report was electronically signed by LADONNA EMERY M.D. ??on 11/17/2020 10:28 AM . Narrative 11/17/2020 10:28 AM CDT EXAMINATION: XR PELVIS 1 OR 2VW HISTORY: Trauma Fracture suspected COMPARISON: CT chest abdomen pelvis dated 11/16/2020 FINDINGS: No acute fracture is identified. The bilateral hip joint spaces are preserved. The pubic symphysis is intact. The osseous architecture and density are normal. The sacroiliac joints are normal. Procedure Note Ladonna Emery MD - 11/17/2020 EXAMINATION: XR PELVIS 1 OR 2VW HISTORY: Trauma Fracture suspected COMPARISON: CT chest abdomen pelvis dated 11/16/2020 FINDINGS: No acute fracture is identified. The bilateral hip joint spaces are preserved. The pubic symphysis is intact. The osseous architecture and density are normal. The sacroiliac joints are normal. IMPRESSION: No acute fracture or dislocation identified. Dictated by Jessica Felipe MD (residential field manager). Dr. LADONNA Hilton M.D. have personally reviewed and interpreted this examination/study. This report was electronically signed by LADONNA EMERY M.D. on 11/17/2020 10:28 AM . Ventura Baker MD DIAGNOSTIC IMAG ING ORDERABLES * PTT [facility] (11/16/2020 7:12 PM CDT) APTT 28.2 23.0 - 38.4 Seconds 11/16/2020 7:45 PM CDT [facility] Comment:Suggested therapeuti c range for full dose I.V. unfractionated heparin therapy for venous thromboembolism is 71 to 109 seconds. Blood BLOOD SPECIMEN / Unknown Venipuncture / Unknown 11/16/2020 7:12 PM CDT 11/16/2020 7:30 PM CDT Ventura Baker MD LAB - COAGULATI ON ORDERABLES Performing Organization Address [facility] Co de Phone Number [address] [address], [facility] [phone] * PT-INR [facility] (11/16/2020 7:12 PM CDT) PT 13.6 12.1 - 14.8 Seconds 11/16/2020 7:45 PM CDT [facility] INR 1.1 See Comment 11/16/2020 7:45 PM CDT [facility] Comment:The suggested therap eutic range for standard coumadin (warfarin) therapy is an INR of 2.0-3.0. For high-risk patients (Mechanical Mitral Valve Prosthesis, etc.), the suggested prophylactic therapeutic range is an INR of 2.5-3.5. Blood BLOOD SPECIMEN / Unknown Venipuncture / Unknown 11/16/2020 7:12 PM CDT 11/16/2020 7:30 PM CDT Ventura Baker MD LAB - COAGULATI ON ORDERABLES Performing Organization Address [facility]/ZIP Co de Phone Number [address] [address], [place] [phone] * TYPE + SCREEN PANEL (11/16/2020 7:12 PM CDT) Pathologist [facility] Antibody Screen NEG 8:16 PM CDT [facility] ABO Rh O POS 11/16/2020 8:16 PM CDT [facility] Blood Bank BLOOD SPECIMEN / Unknown Venipuncture / Unknown 11/16/2020 7:12 PM CDT 11/16/2020 7:32 PM CDT Ventura Baker MD LAB - BLOOD BAN K ORDERABLES [facility] [address] [place] [address], [facility] [phone] * (ABNORMAL) CBC W AUTO DIFFERENTIAL (11/16/2020 7:12 PM CDT) [facility] WBC 16.0(H) 3.5 - 10.5 10? 3 /uL 11/16/2020 8:01 PM [facility] RBC 4.42 4.30 - 5.70 10? 6 /uL 11/16/2020 8:01 PM [facility] Hemoglobin 13.3 12.0 - 17.6 g/dL 11/16/2020 8:01 PM [facility] Hematocrit 39.3 35.2 - 51.7 % 11/16/2020 8:01 PM [facility] MCV 88.9 80.7 - 98.3 fL 11/16/2020 8:01 PM [facility] MCH 30.1 26.7 - 34.0 pg 11/16/2020 8:01 PM [facility] MCHC 33.8 30.8 - 35.9 g/dL 11/16/2020 8:01 PM [facility] Platelet Count 307 150 - 400 10? 3 /uL 11/16/2020 8:01 PM [facility] RDW-SD 42.1 36.0 - 50.0 fL 11/16/2020 8:01 PM [facility] RDW-CV 12.9 11.2 - 14.8 % 11/16/2020 8:01 PM [facility] MPV 10.2 9.4 - 12.9 fL 11/16/2020 8:01 PM [facility] nRBC Absolute 0.00 0 10? 3 /uL 11/16/2020 8:01 PM [facility] nRBC Auto 0.0 0 /100 WBC 11/16/2020 8:01 PM [facility] Neutrophils % 82.4(H) 35.0 - 70.0 % 11/16/2020 8:01 PM [facility] Lymphocytes % 9.4(L) 20.0 - 43.0 % 11/16/2020 8:01 PM [facility] Monocytes % 6.1 5.0 - 13.0 % 11/16/2020 8:01 PM [facility] Eosinophils % 0.8 0.0 - 6.0 % 11/16/2020 8:01 PM [facility] Basophil % 0.5 0.0 - 2.0 % 11/16/2020 8:01 PM [facility] Neutrophils Absolute 13.2(H) 1.6 - 7.0 10? 3 /uL 11/16/2020 8:01 PM [facility] Lymphocyte Absolute 1.5 1.1 - 3.9 10? 3 /uL 11/16/2020 8:01 PM [facility] Monocytes Absolute 0.98 0.26 - 1.07 10? 3 /uL 11/16/2020 8:01 PM [facility] Eosinophils Absolute 0.12 0.00 - 0.47 10? 3 /uL 11/16/2020 8:01 PM [facility] Basophils Absolute 0.08 0.00 - 0.08 10? 3 /uL 11/16/2020 8:01 PM [facility] Immature Granulocytes % 0.8 0.0 - 1.0 % 11/16/2020 8:01 PM [facility] Immature Granulocytes Absolute 0.12 11/16/2020 8:01 PM [facility] Blood BLOOD SPECIMEN / Unknown Venipuncture / Unknown 11/16/2020 7:12 PM CDT 11/16/2020 7:37 PM CDT Ventura Baker MD LAB - HEMATOLOG Y ORDERABLES Performing Organization Address [facility]/ZIP Co de Phone Number [address] [address], [facility] [phone] * LIPASE BLOOD (11/16/2020 7:12 PM CDT) Lipase 35 8 - 78 U/L 11/16/2020 11:20 PM CDT [facility] Blood BLOOD SPECIMEN / Unknown Venipuncture / Unknown 11/16/2020 7:12 PM CDT 11/16/2020 7:37 PM CDT Ventura Baker MD LAB - CHEMISTRY ORDERABLES Performing Organization Address [facility] de Phone Number [address] [address], [facility] [phone] * ALCOHOL ETHYL BLOOD (11/16/2020 7:12 PM CDT) Ethanol (mg/dL) <10 <10 mg/dL 8:05 PM CDT [facility] Ethanol Calculated (g/dL) <0.010 <0.010 g/dL 11/16/2020 8:05 PM CDT [facility] Blood BLOOD SPECIMEN / Unknown Venipuncture / Unknown 11/16/2020 7:12 PM CDT 11/16/2020 7:37 PM CDT Narrative [facility] - 11/16/2020 8:05 PM CDT Ethanol Interp <10: None Detected. Depression of RECRUITMENT ADVERTISING MANAGER: >100 mg/dl Potentially Critical: >250 mg/dl Potentially Fatal >400 mg/dl Ethanol in the patient's blood will contribute to the osmolar gap. Ethanol's contribution to the osmolar gap can be estimated by dividing the concentration of ethanol in mg/dL by 4.6. This test is for clinical use only and does not equal a ANGELITA for legal purposes. Ventura Baker MD LAB - CHEMISTRY ORDERABLES Performing Organization Address [facility]/ZIP Co de Phone Number [place] [address] [place] [address], [facility] [phone]
--- OUTSIDE RECORDS SUMMARY | 2024-05-12 04:21 | XMS_ITS | Continuity of Care Document ---
Author Organization [facility] Address [address] [place] [address] Phone Care Team Providers Care Dredge Worker Name Role Phone Mick PT,MPT,ATC, Elliot Unavailable Unavai lable Procedures Procedure Date Therapeutic Activities Neuromuscular Re-Ed Therapeutic Exercise Therapeutic Activities Neuromuscular Re-Ed Therapeutic Exercise Therapeutic Activities Neuromuscular Re-Ed Therapeutic Exercise Therapeutic Activities Neuromuscular Re-Ed Therapeutic Exercise Therapeutic Activities Neuromuscular Re-Ed Therapeutic Exercise Doc neg elder mal no plan PT Evaluation Low Complexity Therapeutic Activities Neuromuscular Re-Ed Therapeutic Exercise Manual Therapy Advance Directives Directive Yes / No Effective Date File Name No Information Encounters Encounter Description Practice Location Reason(s) For Visit Diagnoses Date Provider Providers Copied on Encounter [facility], [place], [place], [address], [place] tel:[phone] [place] No Information 3 MARCUS Clay, [place]. [facility], [address], [place], [place], [address], tel:[phone] [place] No Information 3 Cori Hawkins. . Referring Provider: Dilshad Morrow, [address] [facility] [address], [place], [address]. tel:[phone], [place], [place], [address], [place] tel:[phone] [place] No Information 8 3 Chin Stiles. . Referring Provider: Dilshad Morrow, [facility] [address], [place], [address]. tel:[phone], [place], [place], [address], [place] tel:[phone] [place] No Information 3 Noyn Go. . Referring Provider: Chela [facility] [address], [place], [address]. tel:[phone], [place], [place], [address], [place] tel:[phone] [place] No Information Oct-1 0-202 3 Klahn Go. . Referring Provider: Chela [facility]won [facility] [address], [place], [address]. tel:[phone], [place], [place], [address], [place] tel:[phone] [place] No Information Oct-0 6-202 3 Klharvinder Stiles. . Referring Provider: Chela Kwon [facility] [address], [place], [address]. tel:[phone], [place], [place], [address], [place] tel:[phone] [place] No Information Micah-0 3-202 3 Modglin Jerson. . Referring Provider: Chela K[facility] [address], [place], [address]. tel:[phone] Family History Family Member Type Diagnosis Age At Onset No Information Payers Payer name Insurance type Covered alliance party ID Aster galicia(s) Health Stephan [id number] Social History Type Description Quantity Date Captured Comments Sex Male Smoking Status No Information Chief Complaint And Reason For Visit No Information Reason For Referral Reason For Referral No Information History Of Present Illness Encounter Date Complaint History Of Prese nt Illness No Information Functional Status Date Functional Assessmen t No Information Instructions Date Instruction Additional Infor mation Giving encouragement to exercise Related to Overweight Giving encouragement to exercise Related to Overweight Assessments Type Assessment Date No Information Patient Care Teams Name Effective Dates (start - stop) Status Members No Information
--- OUTSIDE RECORDS SUMMARY | 2024-05-12 04:21 | XMS_ITS | Encounter Summary ---
Author Organization [facility] Health Address [address] [place] [address] Care Team Providers Care Document Image Technician Name Role Phone Unavailable Primary Care Provider Unavailabl e Encounter Details Date Type Department Care Team (Latest Contact Info) Description 01/02/2021 Travel Social History Tobacco Use Types Packs/Day Years Used Date Smoking Tobacco: Former Smokeless Tobacco: Never Sex and Gender Information Value Date Recorded Sex Assigned at Not on file Gender Identity Male 11/18/2020 9:20 AM CDT Sexual Orientation Not on file COVID-19 Exposure Response Date Recorded In the last month, have you been in contact with someone who was confirmed or suspected to have Coronavirus / COVID-19? No / Unsure 01/02/2021 1:33 PM CDT documented as of this encounter Functional Status Functional Status Response Date of [...] person have difficulty concentrating/remembering/making decisions? No 11/26/2020 documented as of this encounter Plan of Treatment Not on file documented as of this encounter Visit Diagnoses Not on filedocumented in this encounter
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
--- OUTSIDE RECORDS SUMMARY | 2024-05-12 04:21 | XMS_ITS | Encounter Summary ---
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 CDT) Narrative 11/23/2020 9:09 AM CDT Ordered by an unspecified provider. Scanned Document NURSING - VITAL SIGN S AND ASSESSMENT * XR CHEST 1VW PORTABLE (11/23/2020 4:56 AM CDT) Anatomical Region Laterality Modality Chest Radiographic Rosa ging 11/23/2020 9:27 AM CDT Impressions 11/23/2020 1:47 PM CDT FINDINGS/IMPRESSION: Lines and tubes: *Endotracheal terminates in the distal thoracic trachea effacing the right main bronchus. *NG/OG tube courses below the diaphragm, tip out of field of view. Side-port terminates in the stomach. *Cervical collar is in place. Low lung volumes with associated bronchovascular crowding. Improved small left pleural effusion with associated atelectasis and/or airspace disease. The right lung is clear. No pneumothorax. The cardiomediastinal silhouette is stable. Dictated by Jessica Felipe MD (radiology director). Yobani, Dr. WALESKA SHETTY have personally reviewed and interpreted this examination/study. This report was electronically signed by WALESKA SHETTY ??on 11/23/2020 1:47 PM . Narrative 11/23/2020 1:47 PM CDT EXAMINATION: XR CHEST 1VW PORTABLE HISTORY: J96.01: Acute respiratory failure with hypoxia COMPARISON: Chest x-ray dated 11/22/2020 Procedure Note Waleska Shetty, - 11/23/2020 EXAMINATION: XR CHEST 1VW PORTABLE HISTORY: J96.01: Acute respiratory failure with hypoxia COMPARISON: Chest x-ray dated 11/22/2020 FINDINGS/IMPRESSION: Lines and tubes: *Endotracheal terminates in the distal thoracic trachea effacing theright main bronchus. *NG/OG tube courses below the diaphragm, tip out of field of view. Side-port terminates in the stomach. *Cervical collar is in place. Low lung volumes with associated bronchovascular crowding. Improvedsmall left pleural effusion with associated atelectasis and/or airspacedisease. The right lung is clear. No pneumothorax. The cardiomediastinalsilhouette is stable. Dictated by Jessica Felipe MD (radiology director). IDr. WALESKA have personally reviewed and interpreted this examination/study. This report was electronically signed by WALESKA SHETTY on 11/23/2020 1:47 PM . Everton Padilla MD DIAGNOSTIC IMAGING O RDERABLES * (ABNORMAL) BLOOD GASES ART + COOX PANEL (11/22/2020 11:51 PM CDT) pH Arterial 7.48(H) 7.35 - 7.45 pH 11/23/2020 12:09 AM CDT [facility] pO2 Arterial 163(H) 80 - 100 mmHg 11/23/2020 12:09 AM [facility] pCO2 Arterial 34(L) 35 - 45 mmHg 12:09 AM [facility] HCO3 Arterial 25 20 - 30 mmol/l 11/23/2020 12:09 AM [facility] BE Arterial 2.3(H) -2.0 - 2.0 mmol/L 11/23/2020 12:09 AM [facility] Oxyhemoglobin Arterial 97.3 % 11/23/2020 12:09 AM [facility] Dexoyhemoglobin (HHB) % 0.4 % 11/23/2020 12:09 AM [facility] Methemoglobin 0.9 0.0 - 2.0 % 11/23/2020 12:09 AM [facility] Carboxyhemoglobin 1.3 0.0 - 2.0 % 2020 12:09 AM [facility] O2 Content Arterial 21.9 Interpret within clinical context mg/dL 11/23/2020 12:09 AM [facility] Hemoglobin by COOX 15.8 12.0 - 17.6 g/dL 11/23/2020 12:09 AM [facility] O2 Saturation Arterial 100 90 - 100 % 11/23/2020 12:09 AM [facility] FI O2 Arterial 40.0 % 11/23/2020 12:09 AM [facility] Blood, arterial ARTERIAL BLOOD SPECIMEN / Unknown Arterial Puncture / Unknown 11/22/2020 11:51 PM T 11/22/2020 11:56 PM [facility] - 11/23/2020 12:09 AM [facility] Carboxyhemoglobin Normal Concentration: Non-smokers: 0-2%; Smokers: 0-9%; Toxic: >20% Gwen LEBRON NP LAB - BLOOD GASES ORDERABLES [facility] [address] [place] [address], [facility] [phone] * PHOSPHORUS BLOOD (11/22/2020 11:51 PM CDT) Pathologist [facility] Phosphorus 3.0 2.8 - 5.1 mg/dL 11/23/2020 12:37 AM CDT [facility] Blood BLOOD SPECIMEN / Unknown Venipuncture / Unknown 11/22/2020 11:51 PM CDT 11/23/2020 12:11 AM CDT Everton Padilla MD LAB - CHEMISTRY RICARDO ZAVALETA Performing Organization Address City/[facility]/ZIP Co de Phone Number [address] [address], [facility] [phone] * MAGNESIUM BLOOD (11/22/2020 11:51 PM CDT) Pathologist [facility] Magnesium 1.8 1.6 - 2.6 mg/dL 11/23/2020 12:37 AM T [facility] Blood BLOOD SPECIMEN / Unknown Venipuncture / Unknown 11/22/2020 11:51 PM CDT 11/23/2020 12:11 AM CDT Everton Padilla MD LAB - CHEMISTRY RICARDO ZAVALETA Performing Organization Address [facility]/[place] Co de Phone Number [address] [address], [facility] [phone] * (ABNORMAL) CBC W/O DIFFERENTIAL (11/22/2020 11:51 PM CDT) Pathologist [facility] WBC 9.6 3.5 - 10.5 10? 3 /uL 11/23/2020 12:24 AM T [facility] RBC 2.87(L) 4.30 - 5.70 10? 6 /uL 11/23/2020 12:24 AM [facility] Hemoglobin 8.5(L) 12.0 - 17.6 g/dL 11/23/2020 12:24 AM T [facility] Hematocrit 25.0(L) 35.2 - 51.7 % 11/23/2020 12:24 AM [facility] MCV 87.1 80.7 - 98.3 fL 11/23/2020 12:24 AM [facility] MCH 29.6 26.7 - 34.0 pg 11/23/2020 12:24 AM [facility] MCHC 34.0 30.8 - 35.9 g/dL 11/23/2020 12:24 AM [facility] Platelet Count 357 150 - 400 10? 3 /uL 11/23/2020 12:24 AM [facility] RDW-SD 40.6 36.0 - 50.0 fL 11/23/2020 12:24 AM [facility] RDW-CV 12.6 11.2 - 14.8 % 11/23/2020 12:24 AM [facility] MPV 10.1 9.4 - 12.9 fL 11/23/2020 12:24 AM [facility] nRBC Absolute 0.00 0 10? 3 /uL 11/23/2020 12:24 AM [facility] nRBC Auto 0.0 0 /100 WBC 11/23/2020 12:24 AM [facility] Blood BLOOD SPECIMEN / Unknown Venipuncture / Unknown 11/22/2020 11:51 PM CDT 11/23/2020 12:11 AM T Everton Padilla MD LAB - HEMATOLOGY ORD ERABLES [facility] [address] [place] [address], [facility] [phone] * (ABNORMAL) CALCIUM IONIZED WHOLE BLOOD (11/22/2020 11:51 PM CDT) Pathologist [facility] Calcium Ionized 1.16 mmol/L 11/23/2020 12:10 AM [facility] pH 7.47(H) 7.35 - 7.45 pH 11/23/2020 12:10 AM [facility] Ionized Calcium pH Adjusted 1.19 1.19 - 1.34 mmol/L 11/23/2020 12:10 AM [facility] Blood WHOLE BLOOD SPECIMEN / Unknown Venipuncture / Unknown 11/22/2020 11:51 PM CDT 11/22/2020 11:56 PM CDT Everton Padilla MD LAB - CHEMISTRY ORDClaire ZAVALETA [facility] [address] [place] [address], [facility] [phone] * (ABNORMAL) BASIC METABOLIC PANEL (CALCIUM TOTAL) (11/22/2020 11:51 PM CDT) BUN 7 7 - 26 mg/dL 11/23/2020 12:37 AM [facility] Creatinine 0.70(L) 0.71 - 1.16 mg/dL 11/23/2020 12:37 AM [facility] Sodium 140 136 - 145 mmol/L 11/23/2020 12:37 AM [facility] Potassium 3.4(L) 3.5 - 4.5 mmol/L 11/23/2020 12:37 AM [facility] Chloride 106 98 - 107 mmol/L 11/23/2020 12:37 AM [facility] CO2 27 22 - 29 mmol/L 11/23/2020 12:37 AM [facility] Glucose 133(H) 70 - 115 mg/dL 11/23/2020 12:37 AM [facility] Calcium 9.4 8.4 - 10.2 mg/dL 11/23/2020 12:37 AM [facility] Anion Gap 10 8 - 18 11/23/2020 12:37 AM [facility] BUN/Creatinine Ratio 10 7 - 23 11/23/2020 12:37 AM [facility] Osmolality Calculated 290 270 - 300 mOsm/kg 11/23/2020 12:37 AM [facility] eGFR by CKD-EPI >90 >=90 mL/min/1.7 3 m2 11/23/2020 12:37 AM [facility] Blood BLOOD SPECIMEN / Unknown Venipuncture / Unknown 11/22/2020 11:51 PM CDT 11/23/2020 12:11 AM CDT Everton Padilla MD LAB - CHEMISTRY RICARDO ZAVALETA [facility] [address] [place] [address], [facility] [phone] * XR CHEST 1VW PORTABLE (11/22/2020 4:54 AM CDT) Anatomical Region Laterality Modality Chest Radiographic Rosa ging 11/22/2020 9:15 AM CDT Impressions 11/24/2020 1:58 PM CDT FINDINGS/IMPRESSION: Lines and tubes: *Endotracheal tube terminates in the distal thoracic trachea, approximately 8 mm above the efrain. *NG/OG tube courses below the diaphragm, tip out of field of view. *Cervical collar is in place. Mildly improved small left pleural effusion with associated atelectasis and/or airspace disease. No right pleural effusion. Mild right basilar atelectasis, improved from prior study. No pneumothorax. The cardiomediastinal silhouette is normal. The visible bony thorax is intact. Dictated by Jessica Felipe MD (radiology director). I, Dr. WALESKA SHETTY have personally reviewed and interpreted this examination/study. This report was electronically signed by WALESKA SHETTY ??on 11/24/2020 1:58 PM . Narrative 11/24/2020 1:58 PM CDT EXAMINATION: XR CHEST 1VW PORTABLE HISTORY: J96.01: Acute respiratory failure with hypoxia COMPARISON: Chest x-ray dated 11/21/2020 Procedure Note Waleska Shetty DO - 11/24/2020 EXAMINATION: XR CHEST 1VW PORTABLE HISTORY: J96.01: Acute respiratory failure with hypoxia COMPARISON: Chest x-ray dated 11/21/2020 FINDINGS/IMPRESSION: Lines and tubes: *Endotracheal tube terminates in the distal thoracic trachea, approximately 8 mm above the efrain. *NG/OG tube courses below the diaphragm, tip out of field of view. *Cervical collar is in place. Mildly improved small left pleural effusion with associated atelectasis and/or airspace disease. No right pleural effusion. Mild right basilar atelectasis, improved from prior study. No pneumothorax. The cardiomediastinal silhouette is normal. The visible bony thorax isintact. Dictated by Jessica Felipe MD (radiology director). I, Dr. WALESKA SHETTY have personally reviewed and interpreted this examination/study. This report was electronically signed by WALESKA SHETTY on 11/24/2020 1:58 PM . Everton Padilla MD DIAGNOSTIC IMAGING O RDERABLES * (ABNORMAL) BLOOD GASES ART + COOX PANEL (11/21/2020 11:42 PM CD) pH Arterial 7.39 7.35 - 7.45 pH 11/21/2020 11:49 PM [facility] pO2 Arterial 173(H) 80 - 100 mmHg 11/21/2020 11:49 PM [facility] pCO2 Arterial 44 35 - 45 mmHg 11:49 PM [facility] HCO3 Arterial 27 20 - 30 mmol/l 11/21/2020 11:49 PM [facility] BE Arterial 1.4 -2.0 - 2.0 mmol/L 11/21/2020 11:49 PM [facility] Oxyhemoglobin Arterial 97.8 % 11/21/2020 11:49 PM [facility] Dexoyhemoglobin (HHB) % 0.0 % 11/21/2020 11:49 PM [facility] Methemoglobin <0.8 0.0 - 2.0 % 11/21/2020 11:49 PM [facility] Carboxyhemoglobin 1.5 0.0 - 2.0 % 2020 11:49 PM [facility] O2 Content Arterial 12.8 Interpret within clinical context mg/dL 11/21/2020 11:49 PM [facility] Hemoglobin by COOX 9.0(L) 12.0 - 17.6 g/dL 11/21/2020 11:49 PM [facility] O2 Saturation Arterial 100 90 - 100 % 11/21/2020 11:49 PM [facility] FI O2 Arterial 40.0 % 11/21/2020 11:49 PM [facility] Blood, arterial ARTERIAL BLOOD SPECIMEN / Unknown Arterial Puncture / Unknown 11/21/2020 11:42 PM CDT 11/21/2020 11:46 PM CDT Narrative [facility] - 11/21/2020 11:49 PM CDT Carboxyhemoglobin Normal Concentration: Non-smokers: 0-2%; Smokers: 0-9%; Toxic: >20% Gwen Garcia APRN-Ernesto [employer]EX [employer] MACHINE OPERATOR LAB - BLOOD GASES ORDERABLES Performing Organization Address [facility]/ZIP Co de Phone Number [address] [address], [facility] [phone] * (ABNORMAL) PHOSPHORUS BLOOD (11/21/2020 11:42 PM CDT) Pathologist [facility] Phosphorus 2.5(L) 2.8 - 5.1 mg/dL 11/22/2020 12:13 AM CDT [facility] Blood BLOOD SPECIMEN / Unknown Venipuncture / Unknown 11/21/2020 11:42 PM CDT 11/21/2020 11:47 PM CDT Everton Padilla MD LAB - CHEMISTRY RICARDO ZAVALETA Performing Organization Address [facility]/[place] Co de Phone Number [address] [address], [facility] [phone] * MAGNESIUM BLOOD (11/21/2020 11:42 PM CDT) Pathologist [facility] Magnesium 2.0 1.6 - 2.6 mg/dL 11/22/2020 12:13 AM CDT [facility] Blood BLOOD SPECIMEN / Unknown Venipuncture / Unknown 11/21/2020 11:42 PM CDT 11/21/2020 11:47 PM CDT Everton Padilla MD LAB - CHEMISTRY RICARDO ZAVALETA Performing Organization Address City/[facility]/ZIP Co de Phone Number [address] [address], [facility] [phone] * (ABNORMAL) CBC W/O DIFFERENTIAL (11/21/2020 11:42 PM CDT) WBC 9.5 3.5 - 10.5 10? 3 /uL 11/21/2020 11:50 PM [facility] RBC 2.88(L) 4.30 - 5.70 10? 6 /uL 11/21/2020 11:50 PM [facility] Hemoglobin 8.6(L) 12.0 - 17.6 g/dL 11/21/2020 11:50 PM [facility] Hematocrit 25.5(L) 35.2 - 51.7 % 11/21/2020 11:50 PM [facility] MCV 88.5 80.7 - 98.3 fL 11/21/2020 11:50 PM [facility] MCH 29.9 26.7 - 34.0 pg 11/21/2020 11:50 PM [facility] MCHC 33.7 30.8 - 35.9 g/dL 11/21/2020 11:50 PM [facility] Platelet Count 287 150 - 400 10? 3 /uL 11/21/2020 11:50 PM [facility] RDW-SD 42.0 36.0 - 50.0 fL 11/21/2020 11:50 PM [facility] RDW-CV 12.9 11.2 - 14.8 % 11/21/2020 11:50 PM [facility] MPV 10.1 9.4 - 12.9 fL 11/21/2020 11:50 PM [facility] nRBC Absolute 0.00 0 10? 3 /uL 11/21/2020 11:50 PM [facility] nRBC Auto 0.0 0 /100 WBC 11/21/2020 11:50 PM [facility] Blood BLOOD SPECIMEN / Unknown Venipuncture / Unknown 11/21/2020 11:42 PM CDT 11/21/2020 11:46 PM T Everton Padilla MD LAB - HEMATOLOGY ORD ERABLES [address] [address], [facility] [phone] * CALCIUM IONIZED WHOLE BLOOD (11/21/2020 11:42 PM CDT) Calcium Ionized 1.19 mmol/L 11/21/2020 11:49 PM CDT [facility] pH 7.40 7.35 - 7.45 pH 11/21/2020 11:49 PM [facility] Ionized Calcium pH Adjusted 1.19 1.19 - 1.34 mmol/L 11/21/2020 11:49 PM [facility] Blood WHOLE BLOOD SPECIMEN / Unknown Venipuncture / Unknown 11/21/2020 11:42 PM CDT 11/21/2020 11:46 PM CDT Everton Padilla MD LAB - CHEMISTRY RICARDO ZAVALETA [facility] Organization Address City/State/ZIP Co de Phone Number [facility] [address] [place] [address], [facility] [phone] * (ABNORMAL) BASIC METABOLIC PANEL (CALCIUM TOTAL) (11/21/2020 11:42 PM CDT) BUN 7 7 - 26 mg/dL 11/22/2020 12:13 AM [facility] Creatinine 0.74 0.71 - 1.16 mg/dL 11/22/2020 12:13 AM [facility] Sodium 141 136 - 145 mmol/L 11/22/2020 12:13 AM [facility] Potassium 3.7 3.5 - 4.5 mmol/L 11/22/2020 12:13 AM [facility] Chloride 107 98 - 107 mmol/L 11/22/2020 12:13 AM [facility] CO2 25 22 - 29 mmol/L 11/22/2020 12:13 AM [facility] Glucose 105 70 - 115 mg/dL 11/22/2020 12:13 AM [facility] Calcium 8.3(L) 8.4 - 10.2 mg/dL 11/22/2020 12:13 AM [facility] Anion Gap 13 8 - 18 11/22/2020 12:13 AM [facility] BUN/Creatinine Ratio 9 7 - 23 11/22/2020 12:13 AM CDT [facility] Osmolality Calculated 290 270 - 300 mOsm/kg 11/22/2020 12:13 AM T [facility] eGFR by CKD-EPI >90 >=90 mL/min/1.7 3 m2 11/22/2020 12:13 AM T [facility] Blood BLOOD SPECIMEN / Unknown Venipuncture / Unknown 11/21/2020 11:42 PM CDT 11/21/2020 11:47 PM CDT Everton Padilla MD LAB - CHEMISTRY RICARDO ZAVALETA [facility] Organization Address City/State/ZIP Co de Phone Number [facility] [address] [place] [address], [facility] [phone] * SARS-COV-2 (COVID-19)+INFLU A+B PCR RAPID (11/21/2020 4:28 PM CDT) COVID-19 PCR Not detected Not detected 11/22/19 21 5:59 PM CDT [facility] Influenza A Rapid LISA Not Detected Not Detected 11/21/2020 5:59 PM CDT [facility] Influenza B LISA Rapid Not Detected Not Detected 11/21/2020 5:59 PM CDT [facility] Microbiology SPECIMEN FROM NASOPHARYNGEAL STRUCTURE / Unknown Collection / Unknown 11/21/2020 4:28 PM CDT 11/21/2020 4:38 PM CDT Narrative [facility] - 11/21/2020 5:59 PM CDT Influenza [...] acid amplification assay performance was validated by [facility]. This test has been [...] Everton Padilla MD LAB - MICROBIOLOGY O RDERABLES [facility] [address] [place] [address], [facility] [phone] * (ABNORMAL) BLOOD GASES ART + COOX PANEL (11/21/2020 5:31 AM CDT) pH Arterial 7.41 7.35 - 7.45 pH 11/21/2020 5:41 AM [facility] pO2 Arterial 184(H) 80 - 100 mmHg 11/21/2020 5:41 AM [facility] pCO2 Arterial 40 35 - 45 mmHg 5:41 AM [facility] HCO3 Arterial 25 20 - 30 mmol/l 11/21/2020 5:41 AM [facility] BE Arterial 0.7 -2.0 - 2.0 mmol/L 11/21/2020 5:41 AM [facility] Oxyhemoglobin Arterial 97.5 % 11/21/2020 5:41 AM [facility] Dexoyhemoglobin (HHB) % 0.3 % 11/21/2020 5:41 AM [facility] Methemoglobin 0.9 0.0 - 2.0 % 11/21/2020 5:41 AM [facility] Carboxyhemoglobin 1.3 0.0 - 2.0 % 2020 5:41 AM [facility] O2 Content Arterial 13.2 Interpret within clinical context mg/dL 11/21/2020 5:41 AM CDT [facility] Hemoglobin by COOX 9.3(L) 12.0 - 17.6 g/dL 11/21/2020 5:41 AM CDT [facility] O2 Saturation Arterial 100 90 - 100 % 11/21/2020 5:41 AM CDT [facility] FI O2 Arterial 40.0 % 11/21/2020 5:41 AM CDT [facility] Blood, arterial ARTERIAL BLOOD SPECIMEN / Unknown Arterial Puncture / Unknown 11/21/2020 5:31 AM CDT 11/21/2020 5:39 AM CDT Narrative [facility] - 11/21/2020 5:41 AM CDT Carboxyhemoglobin Normal Concentration: Non-smokers: 0-2%; Smokers: 0-9%; Toxic: >20% Gwen LEBRON [employer] [facility] - BLOOD GASES ORDERABLES [facility] [address] [place] [address], [facility] [phone] * XR CHEST 1VW PORTABLE (11/21/2020 4:52 AM CDT) Anatomical Region Laterality Modality Chest Radiographic Rosa ging 11/21/2020 8:26 AM CDT Impressions 11/23/2020 2:54 PM CDT FINDINGS/IMPRESSION: Lines and tubes: *Endotracheal tube terminates in the distal thoracic trachea, approximately 1.5 cm above the efrain. *NG/OG tube courses below the diaphragm, tip out of field of view. *Cervical collar is in place. Improved now trace left pleural effusion with associated atelectasis. Persistent retrocardiac/left lower lung opacity, likely representing atelectasis and/or airspace disease. Mild right basilar atelectasis. No right pleural effusion. No pneumothorax. The cardiomediastinal silhouette is normal. Dictated by Jessica Felipe MD (radiology director). I, Dr. WALESKA SHETTY have personally reviewed and interpreted this examination/study. This report was electronically signed by WALESKA SHETTY ??on 11/23/2020 2:54 PM . Narrative 11/23/2020 2:54 PM CDT EXAMINATION: XR CHEST 1VW PORTABLE HISTORY: T14.90XA: Trauma COMPARISON: Chest x-ray dated 11/20/2020 Procedure Note Waleska Shetty DO - 11/23/2020 EXAMINATION: XR CHEST 1VW PORTABLE HISTORY: T14.90XA: Trauma COMPARISON: Chest x-ray dated 11/20/2020 FINDINGS/IMPRESSION: Lines and tubes: *Endotracheal tube terminates in the distal thoracic trachea, approximately 1.5 cm above the efrain. *NG/OG tube courses below the diaphragm, tip out of field of view. *Cervical collar is in place. Improved now trace left pleural effusion with associated atelectasis. Persistent retrocardiac/left lower lung opacity, likely representing atelectasis and/or airspace disease. Mild right basilar atelectasis. No right pleural effusion. No pneumothorax. The cardiomediastinalsilhouette is normal. Dictated by Jessica Felipe MD (radiology director). I, Dr. WALESKA SHETTY have personally reviewed and interpreted this examination/study. This report was electronically signed by WALESKA SHETTY on 11/23/2020 2:54 PM . Everton Padilla MD DIAGNOSTIC IMAGING O RDERABLES * (ABNORMAL) PHOSPHORUS BLOOD (11/21/2020 12:28 AM CDT) Phosphorus 2.4(L) 2.8 - 5.1 mg/dL 11/21/2020 1:27 AM CDT [facility] [facility] Blood BLOOD SPECIMEN / Unknown Venipuncture / Unknown 11/21/2020 12:28 AM CDT 11/21/2020 1:02 AM CDT Everton Padilla MD LAB - CHEMISTRY ORDE WAQ[facility] Organization Address City/State/ZIP Co de Phone Number [facility] [address] [place] [id number], [facility] [phone] * MAGNESIUM BLOOD (11/21/2020 12:28 AM CDT) Pathologist [facility] [place] Magnesium 1.7 1.6 - 2.6 mg/dL 11/21/2020 1:27 AM [facility] Blood BLOOD SPECIMEN / Unknown Venipuncture / Unknown 11/21/2020 12:28 AM CDT 11/21/2020 1:02 AM CDT Everton Padilla MD LAB - CHEMISTRY RICARDO ZAVALETA [facility] [address] [place] [address], [facility] [phone] * (ABNORMAL) CBC W/O DIFFERENTIAL (11/21/2020 12:28 AM CDT) Pathologist [facility] [place] WBC 12.8(H) 3.5 - 10.5 10? 3 /uL 11/21/2020 1:02 AM [facility] RBC 3.22(L) 4.30 - 5.70 10? 6 /uL 11/21/2020 1:02 AM [facility] Hemoglobin 9.5(L) 12.0 - 17.6 g/dL 11/21/2020 1:02 AM [facility] Hematocrit 27.8(L) 35.2 - 51.7 % 11/21/2020 1:02 AM [facility] MCV 86.3 80.7 - 98.3 fL 11/21/2020 1:02 AM [facility] MCH 29.5 26.7 - 34.0 pg 11/21/2020 1:02 AM [facility] MCHC 34.2 30.8 - 35.9 g/dL 11/21/2020 1:02 AM [facility] Platelet Count 248 150 - 400 10? 3 /uL 11/21/2020 1:02 AM [facility] RDW-SD 39.8 36.0 - 50.0 fL 11/21/2020 1:02 AM [facility] RDW-CV 12.6 11.2 - 14.8 % 11/21/2020 1:02 AM [facility] MPV 10.7 9.4 - 12.9 fL 11/21/2020 1:02 AM CDT [facility] nRBC Absolute 0.00 0 10? 3 /uL 11/21/2020 1:02 AM CDT [facility] nRBC Auto 0.0 0 /100 WBC 11/21/2020 1:02 AM CDT [facility] Blood BLOOD SPECIMEN / Unknown Venipuncture / Unknown 11/21/2020 12:28 AM CDT 11/21/2020 12:56 AM CDT Everton Padilla MD LAB - HEMATOLOGY ORD ERABLES [address] [address], [facility] [phone] * (ABNORMAL) CALCIUM IONIZED WHOLE BLOOD (11/21/2020 12:28 AM CDT) Calcium Ionized 1.12 mmol/L 11/21/2020 12:59 AM T [facility] pH 7.40 7.35 - 7.45 pH 11/21/2020 12:59 AM T [facility] Ionized Calcium pH Adjusted 1.12(L) 1.19 - 1.34 mmol/L 11/21/2020 12:59 AM T [facility] Blood WHOLE BLOOD SPECIMEN / Unknown Venipuncture / Unknown 11/21/2020 12:28 AM CDT 11/21/2020 12:55 AM CDT Everton Padilla MD LAB - CHEMISTRY RICARDO ZAVALETA [address] [address], [facility] [phone] * (ABNORMAL) BASIC METABOLIC PANEL (CALCIUM TOTAL) (11/21/2020 12:28 AM CDT) BUN 8 7 - 26 mg/dL 11/21/2020 1:27 AM CDT [facility] Creatinine 0.77 0.71 - 1.16 mg/dL 11/21/2020 1:27 AM [facility] Sodium 133(L) 136 - 145 mmol/L 11/21/2020 1:27 AM [facility] Potassium 3.2(L) 3.5 - 4.5 mmol/L 11/21/2020 1:27 AM [facility] Chloride 102 98 - 107 mmol/L 11/21/2020 1:27 AM [facility] CO2 26 22 - 29 mmol/L 11/21/2020 1:27 AM [facility] Glucose 119(H) 70 - 115 mg/dL 11/21/2020 1:27 AM [facility] Calcium 8.4 8.4 - 10.2 mg/dL 11/21/2020 1:27 AM [facility] Anion Gap 8 8 - 18 11/21/2020 1:27 AM [facility] BUN/Creatinine Ratio 10 7 - 23 11/21/2020 1:27 AM [facility] Osmolality Calculated 275 270 - 300 mOsm/kg 11/21/2020 1:27 AM [facility] eGFR by CKD-EPI >90 >=90 mL/min/1.7 3 m2 11/21/2020 1:27 AM [facility] Blood BLOOD SPECIMEN / Unknown Venipuncture / Unknown 11/21/2020 12:28 AM CDT 11/21/2020 1:02 AM [facility] Everton Padilla MD LAB - CHEMISTRY ORDClaire ZAVALETA [facility] Organization Address City/State/ZIP Co de Phone Number [facility] [address] [place] [address], [facility] [phone] * (ABNORMAL) BLOOD GASES ART + COOX PANEL (11/20/2020 6:16 PM CDT) pH Arterial 7.42 7.35 - 7.45 pH 11/20/2020 6:22 PM [facility] pO2 Arterial 145(H) 80 - 100 mmHg 11/20/2020 6:22 PM [facility] pCO2 Arterial 41 35 - 45 mmHg 6:22 PM [facility] HCO3 Arterial 27 20 - 30 mmol/l 11/20/2020 6:22 PM [facility] BE Arterial 1.9 -2.0 - 2.0 mmol/L 11/20/2020 6:22 PM [facility] Oxyhemoglobin Arterial 96.7 % 11/20/2020 6:22 PM [facility] Dexoyhemoglobin (HHB) % 0.5 % 11/20/2020 6:22 PM [facility] Methemoglobin 1.1 0.0 - 2.0 % 11/20/2020 6:22 PM [facility] Carboxyhemoglobin 1.7 0.0 - 2.0 % 2020 6:22 PM [facility] O2 Content Arterial 14.0 Interpret within clinical context mg/dL 11/20/2020 6:22 PM [facility] Hemoglobin by COOX 10.1(L) 12.0 - 17.6 g/dL 11/20/2020 6:22 PM [facility] O2 Saturation Arterial 100 90 - 100 % 11/20/2020 6:22 PM [facility] FI O2 Arterial 40.0 % 11/20/2020 6:22 PM [facility] Blood, arterial ARTERIAL BLOOD SPECIMEN / Unknown Arterial Puncture / Unknown 11/20/2020 6:16 PM T 11/20/2020 6:19 PM [facility] - 11/20/2020 6:22 PM [facility] Carboxyhemoglobin Normal Concentration: Non-smokers: 0-2%; Smokers: 0-9%; Toxic: >20% Everton Padilla MD LAB - BLOOD GASES OR DERABLES [facility] [address] [place] [address], [facility] [phone] * (ABNORMAL) BLOOD GASES ART + COOX PANEL (11/20/2020 11:22 AM [facility]) pH Arterial 7.44 7.35 - 7.45 pH 11/20/2020 11:38 AM [facility] pO2 Arterial 318(H) 80 - 100 mmHg 11/20/2020 11:38 AM [facility] pCO2 Arterial 36 35 - 45 mmHg 11:38 AM [facility] HCO3 Arterial 25 20 - 30 mmol/l 11/20/2020 11:38 AM [facility] BE Arterial 0.5 -2.0 - 2.0 mmol/L 11/20/2020 11:38 AM [facility] Oxyhemoglobin Arterial 97.3 % 11/20/2020 11:38 AM [facility] Dexoyhemoglobin (HHB) % 0.3 % 11/20/2020 11:38 AM [facility] Methemoglobin 1.0 0.0 - 2.0 % 11/20/2020 11:38 AM [facility] Carboxyhemoglobin 1.4 0.0 - 2.0 % 2020 11:38 AM [facility] O2 Content Arterial 15.7 Interpret within clinical context mg/dL 11/20/2020 11:38 AM [facility] Hemoglobin by COOX 10.9(L) 12.0 - 17.6 g/dL 11/20/2020 11:38 AM [facility] O2 Saturation Arterial 100 90 - 100 % 11/20/2020 11:38 AM [facility] FI O2 Arterial 100.0 % 11/20/2020 11:38 AM [facility] Blood, arterial ARTERIAL BLOOD SPECIMEN / Unknown Arterial Puncture / Unknown 11/20/2020 11:22 AM [facility] 11/20/2020 11:24 AM [facility] - 11/20/2020 11:38 AM [facility] Carboxyhemoglobin Normal Concentration: Non-smokers: 0-2%; Smokers: 0-9%; Toxic: >20% Everton Padilla MD LAB - BLOOD GASES OR DERABLES [facility] [address] [place] [address], [facility] [phone] * PHOSPHORUS BLOOD (11/20/2020 11:22 AM [facility]) Phosphorus 3.5 2.8 - 5.1 mg/dL 11/20/2020 12:21 PM CDT [facility] Comment:Confirmed by repeat analysis. Blood BLOOD SPECIMEN / Unknown Venipuncture / Unknown 11/20/2020 11:22 AM CDT 11/20/2020 11:31 AM CDT Everton Padilla MD LAB - CHEMISTRY ORDE RABTREY Performing Organization Address City/[facility]/ZIP Co de Phone Number [facility] [address] [place] [address], [facility] [phone] * CULTURE MRSA (11/20/2020 10:03 AM CDT) Pathologist [facility] [place] Culture Negative for methicillin-resist ant Staphylococcus aureus (MRSA) TALHA 11/21/2020 4:10 PM CDT [facility] Microbiology SPECIMEN FROM NASAL FOSSAE / Unknown Collection / Unknown 11/20/2020 10:03 AM CDT 11/20/2020 10:14 AM CDT Everton Padilla MD LAB - MICROBIOLOGY O RDERABLES Performing Organization Address City/[facility]/ZIP Co de Phone Number [facility] [address] [place] [address], [facility] [phone] * XR ABDOMEN KUB PORTABLE (11/20/2020 9:31 AM CDT) Anatomical Region Laterality Modality Abdomen Radiographic Rosa ging 11/20/2020 9:50 AM CDT Impressions 11/20/2020 8:51 PM CDT FINDINGS/IMPRESSION: An enteric tube tip superimposes the stomach. There is redemonstration of a splenic artery aneurysm. Dictated by Cameron Mijares MD (radiology director). This report was approved ??by Cameron Mijares ?? on 11/20/2020 8:51 PM . I, Dr. NURY CROSS have personally reviewed and interpreted this examination/study. This report was electronically signed by NURY CROSS ??on 11/20/2020 8:51 PM . Narrative 11/20/2020 8:51 PM CDT EXAMINATION: XR ABDOMEN KUB PORTABLE HISTORY: T14.90XA: Trauma COMPARISON: X-ray abdomen dated 11/17/2020. Procedure Note Nury Cross MD - 11/20/2020 EXAMINATION: XR ABDOMEN KUB PORTABLE HISTORY: T14.90XA: Trauma COMPARISON: X-ray abdomen dated 11/17/2020. FINDINGS/IMPRESSION: An enteric tube tip superimposes the stomach. There is redemonstrationof a splenic artery aneurysm. Dictated by Cameron Mijares MD (radiology director). This report was approved by Cameron Mijares on 11/20/2020 8:51 PM . I, Dr. NURY CROSS have personally reviewed and interpreted this examination/study. This report was electronically signed by NURY CROSS on11/20/2020 8:51 PM . Everton Padilla MD DIAGNOSTIC IMAGING O RDERABLES * XR CHEST 1VW PORTABLE (11/20/2020 9:27 AM CDT) Anatomical Region Laterality Modality Chest Radiographic Rosa ging 11/20/2020 9:48 AM CDT Impressions 11/20/2020 8:51 PM CDT FINDINGS/IMPRESSION: Lines and tubes: *Endotracheal tube terminates in the distal thoracic trachea approximately 1.6 cm from the efrain. *An NG/OG seen coursing below the diaphragm, with its tip outside the [id number]. There is a small left pleural effusion with associated compressive atelectasis. There is a persistent left lower lobe/left retrocardiac opacity, likely representing atelectasis and/or pneumonia. There is no pneumothorax. The cardiac silhouette is normal. The aorta is atherosclerotic. The visible bony thorax is intact. Dictated by Cameron Mijares MD (radiology director). This report was approved ??by Cameron Mijares ?? on 11/20/2020 8:51 PM . IDr. NURY have personally reviewed and interpreted this examination/study. This report was electronically signed by NURY CROSS ??on 11/20/2020 8:51 PM . Narrative 11/20/2020 8:51 PM CDT EXAMINATION: XR CHEST 1VW PORTABLE HISTORY: J96.90: Respiratory failure after trauma COMPARISON: Chest x-ray dated 08/20/2020 at 5:56 AM. Procedure Note Nury Cross MD - 11/20/2020 EXAMINATION: XR CHEST 1VW PORTABLE HISTORY: J96.90: Respiratory failure after trauma COMPARISON: Chest x-ray dated 08/20/2020 at 5:56 AM. FINDINGS/IMPRESSION: Lines and tubes: *Endotracheal tube terminates in the distal thoracic tracheaapproximately 1.6 cm from the efrain. *An NG/OG seen coursing below the diaphragm, with its tip outside the [id number]. There is a small left pleural effusion with associated compressive atelectasis. There is a persistent left lower lobe/left retrocardiac opacity, likely representing atelectasis and/or pneumonia. There is no pneumothorax. The cardiac silhouette is normal. The aorta is atherosclerotic. The visible bony thorax is intact. Dictated by Cameron Mijares MD (radiology director). This report was approved by Cameron Mijares on 11/20/2020 8:51 PM . I, Dr. NURY CROSS have personally reviewed and interpreted this examination/study. This report was electronically signed by NURY CROSS on11/20/2020 8:51 PM . Everton Padilla MD DIAGNOSTIC IMAGING O RDERABLES * XR CHEST 1VW PORTABLE (11/20/2020 6:14 AM CDT) Anatomical Region Laterality Modality Chest Radiographic Rosa ging 11/20/2020 9:25 AM CDT Impressions 11/20/2020 8:11 PM CDT FINDINGS/IMPRESSION: A cervical collar is present. Low lung volumes with associated bronchovascular crowding. Left retrocardiac opacification with air bronchograms is seen but improved compared to prior, representing improved atelectasis or airspace disease. No pleural effusion or pneumothorax. The cardiomediastinal silhouette is stable. The thoracic aorta is atherosclerotic. Dictated by Lexus Osborn DO (resident). This report was approved ??by Lexus Osborn ?? on 11/20/2020 8:11 PM . I, Dr. NURY CROSS have personally reviewed and interpreted this examination/study. This report was electronically signed by NURY CROSS ??on 11/20/2020 8:11 PM . Narrative 11/20/2020 8:11 PM CDT ORDER DATE: 11/20/2020 6:14 AM EXAMINATION: XR CHEST 1VW PORTABLE HISTORY: T14.90XA: Trauma COMPARISON: 11/19/2020. Procedure Note Nury Cross MD - 11/20/2020 ORDER DATE: 11/20/2020 6:14 AM EXAMINATION: XR CHEST 1VW PORTABLE HISTORY: T14.90XA: Trauma COMPARISON: 11/19/2020. FINDINGS/IMPRESSION: A cervical collar is present. Low lung volumes with associated bronchovascular crowding. Left retrocardiac opacification with air bronchograms is seen but improved compared to prior, representing improved atelectasis or airspacedisease. No pleural effusion or pneumothorax. The cardiomediastinal silhouette is stable. The thoracic aorta is atherosclerotic. Dictated by Lexus Osborn DO (resident). This report was approved by Lexus Osborn on 11/20/2020 8:11 PM . I, Dr. NURY CROSS have personally reviewed and interpreted this examination/study. This report was electronically signed by NURY CROSS on11/20/2020 8:11 PM . Ezra Rod PA-C DIAGNOSTIC IMAGIN G ORDERABLES * (ABNORMAL) PHOSPHORUS BLOOD (11/20/2020 12:20 AM CDT) Phosphorus 1.6(L) 2.8 - 5.1 mg/dL 11/20/2020 1:06 AM CDT [facility] Blood BLOOD SPECIMEN / Unknown Venipuncture / Unknown 11/20/2020 12:20 AM CDT 11/20/2020 12:29 AM CDT Everton Padilla MD LAB - CHEMISTRY RICARDO ZAVALETA [facility] [address] [place] [address], [facility] [phone] * MAGNESIUM BLOOD (11/20/2020 12:20 AM CDT) [facility] Magnesium 1.8 1.6 - 2.6 mg/dL 11/20/2020 1:06 AM T [facility] Blood BLOOD SPECIMEN / Unknown Venipuncture / Unknown 11/20/2020 12:20 AM CDT 11/20/2020 12:29 AM CDT Everton Padilla MD LAB - CHEMISTRY RICARDO ZAVALETA Performing Organization Address City/[facility]/ZIP Co de Phone Number [facility] [address] [place] [address], [facility] [phone] * (ABNORMAL) CBC W/O DIFFERENTIAL (11/20/2020 12:20 AM CDT) [facility] WBC 19.1(H) 3.5 - 10.5 10? 3 /uL 11/20/2020 12:41 AM [facility] RBC 3.72(L) 4.30 - 5.70 10? 6 /uL 11/20/2020 12:41 AM [facility] Hemoglobin 11.1(L) 12.0 - 17.6 g/dL 11/20/2020 12:41 AM [facility] Hematocrit 32.2(L) 35.2 - 51.7 % 11/20/2020 12:41 AM [facility] MCV 86.6 80.7 - 98.3 fL 11/20/2020 12:41 AM [facility] MCH 29.8 26.7 - 34.0 pg 11/20/2020 12:41 AM [facility] MCHC 34.5 30.8 - 35.9 g/dL 11/20/2020 12:41 AM [facility] Platelet Count 248 150 - 400 10? 3 /uL 11/20/2020 12:41 AM [facility] RDW-SD 39.4 36.0 - 50.0 fL 11/20/2020 12:41 AM CDT [facility] RDW-CV 12.4 11.2 - 14.8 % 11/20/2020 12:41 AM CDT [facility] MPV 10.6 9.4 - 12.9 fL 11/20/2020 12:41 AM CDT [facility] nRBC Absolute 0.00 0 10? 3 /uL 11/20/2020 12:41 AM CDT [facility] nRBC Auto 0.0 0 /100 WBC 11/20/2020 12:41 AM T [facility] Blood BLOOD SPECIMEN / Unknown Venipuncture / Unknown 11/20/2020 12:20 AM CDT 11/20/2020 12:29 AM CDT Everton Padilla MD LAB - HEMATOLOGY ORD CÉSAR Performing Organization Address City/[facility]/ZIP Co de Phone Number [address] [address], [facility] [phone] * (ABNORMAL) CALCIUM IONIZED WHOLE BLOOD (11/20/2020 12:20 AM CDT) Calcium Ionized 1.15 mmol/L 11/20/2020 12:27 AM T [facility] pH 7.38 7.35 - 7.45 pH 11/20/2020 12:27 AM T [facility] Ionized Calcium pH Adjusted 1.14(L) 1.19 - 1.34 mmol/L 11/20/2020 12:27 AM T [facility] Blood WHOLE BLOOD SPECIMEN / Unknown Venipuncture / Unknown 11/20/2020 12:20 AM CDT 11/20/2020 12:24 AM CDT Everton Padilla MD LAB - CHEMISTRY RICARDO ZAVALETA [address] [address], [place] [phone] * (ABNORMAL) BASIC METABOLIC PANEL (CALCIUM TOTAL) (11/20/2020 12:20 AM CDT) BUN <5(L) 7 - 26 mg/dL 11/20/2020 1:06 AM [facility] Creatinine 0.57(L) 0.71 - 1.16 mg/dL 11/20/2020 1:06 AM [facility] Sodium 138 136 - 145 mmol/L 11/20/2020 1:06 AM [facility] Potassium 4.0 3.5 - 4.5 mmol/L 11/20/2020 1:06 AM [facility] Chloride 103 98 - 107 mmol/L 11/20/2020 1:06 AM [facility] CO2 26 22 - 29 mmol/L 11/20/2020 1:06 AM [facility] Glucose 136(H) 70 - 115 mg/dL 11/20/2020 1:06 AM [facility] Calcium 9.2 8.4 - 10.2 mg/dL 11/20/2020 1:06 AM [facility] Anion Gap 13 8 - 18 11/20/2020 1:06 AM [facility] BUN/Creatinine Ratio <9 7 - 23 11/20/2020 1:06 AM [facility] Osmolality Calculated <285 270 - 300 mOsm/kg 11/20/2020 1:06 AM [facility] eGFR by CKD-EPI >90 >=90 mL/min/1.7 3 m2 11/20/2020 1:06 AM [facility] Blood BLOOD SPECIMEN / Unknown Venipuncture / Unknown 11/20/2020 12:20 AM CDT 11/20/2020 12:29 AM CDT Everton Padilla MD LAB - CHEMISTRY RICARDO ZAVALETA [facility] [address] [place] [address], [facility] [phone] * (ABNORMAL) CULTURE SPUTUM+GRAM STAIN (11/19/2020 3:24 PM CDT) Culture Moderate Enterobacter cloacae complex(A) TALHA 11/21/2020 3:16 PM CDT [facility] Culture Moderate Staphylococcus aureus(A) TALHA 11/21/2020 3:16 PM CDT [facility] Comment:Staphylococcus aureu s methicillin-susceptible (MSSA) detected by penicillin binding protein immunoassay. Culture Moderate normal oropharyngeal kadeem TALHA 11/21/2020 3:16 PM CDT [facility] Gram Stain >= 25 per low power field Polymorphonuclear cells 11/21/2020 3:16 PM CDT [facility] Gram Stain <10 per low power field Squamous epithelial cells 11/21/2020 3:16 PM CDT [facility] Gram Stain Heavy Gram-positive cocci pairs and chains 11/21/2020 3:16 PM CDT [facility] Gram Stain Light Gram-positive bacilli 11/21/2020 3:16 PM CDT [facility] Gram Stain Rare Gram-negative coccobacilli 11/21/2020 3:16 PM CDT [facility] Microbiology SPUTUM / Unknown Collection / Unknown 11/19/2020 3:24 PM CDT 11/19/2020 3:27 PM CDT [facility]CRO[facility] - 11/21/2020 3:16 PM CDT Enterobacter, [...] Everton Padilla MD LAB - MICROBIOLOGY O RDERABLES [facility] [address] [place] [phone] * (ABNORMAL) URINALYSIS REFLEX TO MICROSCOPIC NO CULTURE (11/19/2020 3:19 PM CDT) Color UA Straw Straw, Yellow 11/19/2020 3:43 PM CDT [facility] Clarity UA Clear Clear 11/19/2020 3:43 PM CDT [facility] Specific [place] UA 1.006 1.005 - 1.030 11/19/2020 3:43 PM [facility] pH UA 8.0 5.0 - 8.0 pH 11/19/2020 3:43 PM T [facility] Protein UA Negative Negative 11/19/2020 3:43 PM CDT [facility] Glucose UA Negative Negative 11/19/2020 3:43 PM T [facility] Ketone UA Trace(A) Negative 11/19/2020 3:43 PM CDT [facility] Bilirubin UA Negative Negative 11/19/2020 3:43 PM T [facility] Blood UA 2+(A) Negative 11/19/2020 3:43 PM T [facility] Nitrite UA Negative Negative 11/19/2020 3:43 PM CDT [facility] Leukocyte Esterase 1+(A) Negative 11/19/2020 3:43 PM CDT [facility] Urobilinogen UA Negative Negative mg/dL 11/19/2020 3:43 PM CDT [facility] RBC UA 51-100(A) None Seen, 0-2, 3-5 /HPF 11/19/2020 3:43 PM CDT [facility] WBC UA 0-5 None Seen, 0-5 /HPF 11/19/2020 3:43 PM CDT [facility] Squamous Epithelial Cells UA None Seen None Seen, 0-2, 3-5 /HPF 11/19/2020 3:43 PM CDT [facility] Renal Epithelial Cells UA 0-2(A) None Seen /HPF 11/19/2020 3:43 PM CDT [facility] Mucus UA 1+ /LPF 11/19/2020 3:43 PM CDT [facility] Urine URINE SPECIMEN OBTAINED VIA [employer]HE[facility] / Unknown Collection / Unknown 11/19/2020 3:19 PM CDT 11/19/2020 3:27 PM CDT Narrative [facility] - 11/19/2020 3:43 PM CDT Everton Padilla MD LAB - URINALYSIS ORD ERABLES [facility] [address] [place] [address], [facility] [phone] * XR CHEST 1VW PORTABLE (11/19/2020 5:17 AM CDT) Anatomical Region Laterality Modality Chest Radiographic Rosa ging 11/19/2020 12:3 6 PM CDT Impressions 11/20/2020 7:19 AM CDT FINDINGS/IMPRESSION: A cervical collar is present. Low lung volumes with resultant bronchovascular crowding. Left retrocardiac opacification with air bronchograms is seen, representing atelectasis or airspace disease. No pleural effusion or pneumothorax. he cardiomediastinal silhouette is stable. The thoracic aorta is atherosclerotic. Dictated by Lexus Osborn DO (resident). This report was approved ??by Lexus Osborn ?? on 11/20/2020 7:19 AM . I, Dr. NURY CROSS have personally reviewed and interpreted this examination/study. This report was electronically signed by NURY CROSS ??on 11/20/2020 7:19 AM . Narrative 11/20/2020 7:19 AM CDT ORDER DATE: 11/19/2020 5:17 AM EXAMINATION: XR CHEST 1VW PORTABLE HISTORY: T14.90XA: Trauma COMPARISON: 11/18/2020 at 5:16 AM. Procedure Note Nury Cross MD - 11/20/2020 ORDER DATE: 11/19/2020 5:17 AM EXAMINATION: XR CHEST 1VW PORTABLE HISTORY: T14.90XA: Trauma COMPARISON: 11/18/2020 at 5:16 AM. FINDINGS/IMPRESSION: A cervical collar is present. Low lung volumes with resultant bronchovascular crowding. Left retrocardiac opacification with air bronchograms is seen, representing atelectasis or airspace disease. No pleural effusion or pneumothorax. he cardiomediastinal silhouette is stable. The thoracic aorta is atherosclerotic. Dictated by Lexus Osborn DO (resident). This report was approved by Lexus Osborn on 11/20/2020 7:19 AM . I, Dr. NURY CROSS have personally reviewed and interpreted this examination/study. This report was electronically signed by NURY CROSS on11/20/2020 7:19 AM . Everton Padilla MD DIAGNOSTIC IMAGING O RDERABLES * (ABNORMAL) HEPATIC FUNCTION PANEL (11/18/2020 11:46 PM CDT) Protein Total 6.1 6.0 - 8.3 g/dL 021 12:26 AM CDT [facility] Albumin 3.3(L) 3.4 - 5.0 g/dL 11/19/2020 12:26 AM CDT [facility] Bilirubin Total 2.2(H) 0.2 - 1.2 mg/dL 10/22 12:26 AM T [facility] Bilirubin Conjugated 0.8(H) 0.1 - 0.5 mg/dL 11/19/2020 12:26 AM [facility] Bilirubin Unconjugated 1.4 Unconjugated Bilirubin is a calculated value: Reference ranges have not been established. mg/dL 11/19/2020 12:26 AM [facility] Alkaline Phosphatase 78 40 - 150 U/L 11/19/2020 12:26 AM [facility] ALT 25 5 - 55 U/L 11/19/2020 12:26 AM [facility] AST 52(H) 5 - 34 U/L 11/19/2020 12:26 AM [facility] Albumin/Globulin Ratio 1.2 1.1 - 2.3 11/19/2020 12:26 AM [facility] Blood BLOOD SPECIMEN / Unknown Venipuncture / Unknown 11/18/2020 11:46 PM CDT 11/18/2020 11:53 PM CDT Ezra Rod PA-C LAB - CHEMISTRY O RDERABLES [address] [address], [facility] [phone] * (ABNORMAL) PHOSPHORUS BLOOD (11/18/2020 11:46 PM CDT) Phosphorus 2.5(L) 2.8 - 5.1 mg/dL 11/19/2020 12:26 AM T [facility] Blood BLOOD SPECIMEN / Unknown Venipuncture / Unknown 11/18/2020 11:46 PM CDT 11/18/2020 11:53 PM CDT Everton Padilla MD LAB - CHEMISTRY RICARDO ZAVALETA [address] [address], [facility] [phone] * MAGNESIUM BLOOD (11/18/2020 11:46 PM CDT) Magnesium 1.8 1.6 - 2.6 mg/dL 11/19/2020 12:26 AM [facility] Blood BLOOD SPECIMEN / Unknown Venipuncture / Unknown 11/18/2020 11:46 PM CDT 11/18/2020 11:53 PM CDT Everton Padilla MD LAB - CHEMISTRY RICARDO ZAVALETA [facility] Organization Address City/State/ZIP Co de Phone Number [facility] [address] [place] [address], [facility] [phone] * (ABNORMAL) CBC W/O DIFFERENTIAL (11/18/2020 11:46 PM CDT) WBC 17.0(H) 3.5 - 10.5 10? 3 /uL 11/18/2020 11:59 PM [facility] RBC 3.59(L) 4.30 - 5.70 10? 6 /uL 11/18/2020 11:59 PM [facility] Hemoglobin 10.6(L) 12.0 - 17.6 g/dL 11/18/2020 11:59 PM [facility] Hematocrit 31.2(L) 35.2 - 51.7 % 11/18/2020 11:59 PM [facility] MCV 86.9 80.7 - 98.3 fL 11/18/2020 11:59 PM [facility] MCH 29.5 26.7 - 34.0 pg 11/18/2020 11:59 PM [facility] MCHC 34.0 30.8 - 35.9 g/dL 11/18/2020 11:59 PM [facility] Platelet Count 237 150 - 400 10? 3 /uL 11/18/2020 11:59 PM [facility] RDW-SD 40.2 36.0 - 50.0 fL 11/18/2020 11:59 PM [facility] RDW-CV 12.5 11.2 - 14.8 % 11/18/2020 11:59 PM [facility] MPV 10.1 9.4 - 12.9 fL 11/18/2020 11:59 PM CDT [facility] nRBC Absolute 0.00 0 10? 3 /uL 11/18/2020 11:59 PM CDT [facility] nRBC Auto 0.0 0 /100 WBC 11/18/2020 11:59 PM CDT [facility] Blood BLOOD SPECIMEN / Unknown Venipuncture / Unknown 11/18/2020 11:46 PM CDT 11/18/2020 11:52 PM CDT Everton Padilla MD LAB - HEMATOLOGY ORD ERABLES Performing Organization Address City/[facility]/ZIP Co de Phone Number [address] [address], [facility] [phone] * (ABNORMAL) CALCIUM IONIZED WHOLE BLOOD (11/18/2020 11:46 PM CDT) Pathologist [facility] Calcium Ionized 1.09 mmol/L 11/18/2020 11:55 PM CDT [facility] pH 7.39 7.35 - 7.45 pH 11/18/2020 11:55 PM CDT [facility] Ionized Calcium pH Adjusted 1.09(L) 1.19 - 1.34 mmol/L 11/18/2020 11:55 PM CDT [facility] Blood WHOLE BLOOD SPECIMEN / Unknown Venipuncture / Unknown 11/18/2020 11:46 PM CDT 11/18/2020 11:49 PM CDT Everton Padilla MD LAB - CHEMISTRY RICARDO ZAVALETA Performing Organization Address City/[facility]/ZIP Co de Phone Number [address] [address], [facility] [phone] * (ABNORMAL) BASIC METABOLIC PANEL (CALCIUM TOTAL) (11/18/2020 11:46 PM CDT) BUN 5(L) 7 - 26 mg/dL 11/19/2020 12:26 AM CDT [facility] LABORATORY [facility] Creatinine 0.59(L) 0.71 - 1.16 mg/dL 11/19/2020 12:26 AM CDT [facility] LABORATORY [facility] Sodium 141 136 - 145 mmol/L 11/19/2020 12:26 AM [facility] Potassium 3.3(L) 3.5 - 4.5 mmol/L 11/19/2020 12:26 AM [facility] Chloride 105 98 - 107 mmol/L 11/19/2020 12:26 AM [facility] CO2 27 22 - 29 mmol/L 11/19/2020 12:26 AM [facility] Glucose 122(H) 70 - 115 mg/dL 11/19/2020 12:26 AM [facility] Calcium 8.6 8.4 - 10.2 mg/dL 11/19/2020 12:26 AM [facility] Anion Gap 12 8 - 18 11/19/2020 12:26 AM [facility] BUN/Creatinine Ratio 8 7 - 23 11/19/2020 12:26 AM [facility] Osmolality Calculated 291 270 - 300 mOsm/kg 11/19/2020 12:26 AM [facility] eGFR by CKD-EPI >90 >=90 mL/min/1.7 3 m2 11/19/2020 12:26 AM [facility] Blood BLOOD SPECIMEN / Unknown Venipuncture / Unknown 11/18/2020 11:46 PM CDT 11/18/2020 11:53 PM CDT Everton Padilla MD LAB - CHEMISTRY RICARDO ZAVALETA Performing Organization Address City/[facility]/ZIP Co de Phone Number [address] [address], [facility] [phone] * PHOSPHORUS BLOOD (11/18/2020 11:57 AM CDT) Phosphorus 3.3 2.8 - 5.1 mg/dL 11/18/2020 2:20 PM T [facility] Blood BLOOD SPECIMEN / Unknown Venipuncture / Unknown 11/18/2020 11:57 AM CDT 11/18/2020 12:09 PM CDT Everton Padilla MD LAB - CHEMISTRY RICARDO ZAVALETA [address] [address], [facility] [phone] * (ABNORMAL) BASIC METABOLIC PANEL (CALCIUM TOTAL) (11/18/2020 11:57 AM CDT) BUN 7 7 - 26 mg/dL 11/18/2020 1:12 PM [facility] Creatinine 0.73 0.71 - 1.16 mg/dL 11/18/2020 1:12 PM [facility] Sodium 140 136 - 145 mmol/L 11/18/2020 1:12 PM [facility] Potassium 3.3(L) 3.5 - 4.5 mmol/L 11/18/2020 1:12 PM [facility] Chloride 105 98 - 107 mmol/L 11/18/2020 1:12 PM [facility] CO2 27 22 - 29 mmol/L 11/18/2020 1:12 PM [facility] Glucose 90 70 - 115 mg/dL 11/18/2020 1:12 PM [facility] Calcium 8.7 8.4 - 10.2 mg/dL 11/18/2020 1:12 PM [facility] Anion Gap 11 8 - 18 11/18/2020 1:12 PM [facility] BUN/Creatinine Ratio 10 7 - 23 11/18/2020 1:12 PM [facility] Osmolality Calculated 288 270 - 300 mOsm/kg 11/18/2020 1:12 PM [facility] eGFR by CKD-EPI >90 >=90 mL/min/1.7 3 m2 11/18/2020 1:12 PM [facility] Blood BLOOD SPECIMEN / Unknown Venipuncture / Unknown 11/18/2020 11:57 AM CDT 11/18/2020 12:09 PM CDT Everton Padilla MD LAB - CHEMISTRY RICARDO ZAVALETA [facility] Organization Address City/State/ZIP Co de Phone Number [facility] [address] [place] [address], [facility] [phone] * XR CHEST 1VW PORTABLE (11/18/2020 5:42 AM CDT) Anatomical Region Laterality Modality Chest Radiographic Rosa ging 11/18/2020 10:5 4 AM CDT Impressions 11/19/2020 6:03 AM CDT FINDINGS/IMPRESSION: Interval placement of an endotracheal tube that terminates 1.9 cm above the efrain and could be repositioned to the midthoracic trachea. There is an enteric tube that courses below the diaphragm, the tip is out of the [id number]. Low lung volumes. There is no focal consolidation, pleural effusion, or pneumothorax. The cardiomediastinal silhouette is stable in appearance. The circular density with peripheral calcification seen in the previous radiograph in the left upper quadrant of the abdomen which correlates with the splenic artery aneurysm seen on prior CT, unchanged. Report dictated by Asher Hameed MD (radiology director). This report was approved ??by Asher Hameed ?? on 11/19/2020 6:03 AM . I, Dr. NURY CROSS have personally reviewed and interpreted this examination/study. This report was electronically signed by NURY CROSS ??on 11/19/2020 6:03 AM . Narrative 11/19/2020 6:03 AM CDT EXAMINATION: XR CHEST 1VW PORTABLE, 11/18/2020 5:42 AM HISTORY: T14.90XA: Trauma COMPARISON: Chest x-ray dated 11/17/2020 Procedure Note Nury Cross MD - 11/19/2020 EXAMINATION: XR CHEST 1VW PORTABLE, 11/18/2020 5:42 AM HISTORY: T14.90XA: Trauma COMPARISON: Chest x-ray dated 11/17/2020 FINDINGS/IMPRESSION: Interval placement of an endotracheal tube that terminates 1.9 cm above the efrain and could be repositioned to the midthoracic trachea. Thereis an enteric tube that courses below the diaphragm, the tip is out of the [id number]. Low lung volumes. There is no focal consolidation, pleural effusion, or pneumothorax. The cardiomediastinal silhouette is stable in appearance. The circular density with peripheral calcification seen in the previous radiograph in the left upper quadrant of the abdomen which correlateswith the splenic artery aneurysm seen on prior CT, unchanged. Report dictated by Asher Hameed MD (radiology director). This report was approved by Asher Hameed on 11/19/2020 6:03 AM . I, Dr. NURY CROSS have personally reviewed and interpreted this examination/study. This report was electronically signed by NURY CROSS on11/19/2020 6:03 AM . Estrada Dial MD DIAGNOSTIC IMAGING O RDERABLES * TRIGLYCERIDES BLOOD (11/18/2020 4:13 AM CDT) Triglycerides 131 <150 mg/dL 11/18/2020 4:59 AM CDT [facility] Comment: ATP III Classification of Triglycerides: ?<150 mg/dL: ??Normal ? 150 - 199 mg/dL: ??Borderline High ? 200 - 400 mg/dL: ??High ?>500 mg/dL: ??Very High Blood BLOOD SPECIMEN / Unknown Venipuncture / Unknown 11/18/2020 4:13 AM CDT 11/18/2020 4:17 AM CDT Ventura Baker MD LAB - CHEMISTRY ORDERABLES [facility] [address] [place] [address], [facility] [phone] * (ABNORMAL) BLOOD GASES ART + COOX PANEL (11/17/2020 11:58 PM CDT) pH Arterial 7.55(H) 7.35 - 7.45 pH 11/18/2020 12:15 AM CDT [facility] pO2 Arterial 180(H) 80 - 100 mmHg 11/18/2020 12:15 AM CDT [facility] pCO2 Arterial 26(L) 35 - 45 mmHg 12:15 AM CDT [facility] HCO3 Arterial 23 20 - 30 mmol/l 11/18/2020 12:15 AM CDT [facility] BE Arterial 1.5 -2.0 - 2.0 mmol/L 11/18/2020 12:15 AM [facility] Oxyhemoglobin Arterial 97.5 % 11/18/2020 12:15 AM [facility] Dexoyhemoglobin (HHB) % 0.0 % 11/18/2020 12:15 AM [facility] Methemoglobin <0.8 0.0 - 2.0 % 11/18/2020 12:15 AM [facility] Carboxyhemoglobin 1.8 0.0 - 2.0 % 2020 12:15 AM [facility] O2 Content Arterial 17.9 Interpret within clinical context mg/dL 11/18/2020 12:15 AM [facility] Hemoglobin by COOX 12.8 12.0 - 17.6 g/dL 11/18/2020 12:15 AM [facility] O2 Saturation Arterial 100 90 - 100 % 11/18/2020 12:15 AM [facility] FI O2 Arterial 50.0 % 11/18/2020 12:15 AM [facility] Blood, arterial ARTERIAL BLOOD SPECIMEN / Unknown Arterial Puncture / Unknown 11/17/2020 11:58 PM CDT 11/18/2020 12:06 AM [facility] Narrative [facility] - 11/18/2020 12:15 AM [facility] Carboxyhemoglobin Normal Concentration: Non-smokers: 0-2%; Smokers: 0-9%; Toxic: >20% Ezra Rod PA-C LAB - BLOOD GASES ORDERABLES [facility] [address] [place] [address], [facility] [phone] * (ABNORMAL) PHOSPHORUS BLOOD (11/17/2020 11:58 PM CDT) Phosphorus 1.6(L) 2.8 - 5.1 mg/dL 11/18/2020 12:40 AM [facility] Blood BLOOD SPECIMEN / Unknown Venipuncture / Unknown 11/17/2020 11:58 PM CDT 11/18/2020 12:08 AM CDT Everton Padilla MD LAB - CHEMISTRY RICARDO ZAVALETA [address] [address], [facility] [phone] * MAGNESIUM BLOOD (11/17/2020 11:58 PM CDT) Magnesium 1.8 1.6 - 2.6 mg/dL 11/18/2020 12:40 AM T [facility] Blood BLOOD SPECIMEN / Unknown Venipuncture / Unknown 11/17/2020 11:58 PM CDT 11/18/2020 12:08 AM CDT Everton Padilla MD LAB - CHEMISTRY RICARDO ZAVALETA Performing Organization Address [facility]/ZIP Co de Phone Number [address] [address], [facility] [phone] * (ABNORMAL) CBC W/O DIFFERENTIAL (11/17/2020 11:58 PM CDT) WBC 13.4(H) 3.5 - 10.5 10? 3 /uL 11/18/2020 12:16 AM [facility] RBC 3.65(L) 4.30 - 5.70 10? 6 /uL 11/18/2020 12:16 AM [facility] Hemoglobin 10.9(L) 12.0 - 17.6 g/dL 11/18/2020 12:16 AM [facility] Hematocrit 31.3(L) 35.2 - 51.7 % 11/18/2020 12:16 AM [facility] MCV 85.8 80.7 - 98.3 fL 11/18/2020 12:16 AM [facility] MCH 29.9 26.7 - 34.0 pg 11/18/2020 12:16 AM [facility] MCHC 34.8 30.8 - 35.9 g/dL 11/18/2020 12:16 AM [facility] Platelet Count 238 150 - 400 10? 3 /uL 11/18/2020 12:16 AM CDT [facility] RDW-SD 40.2 36.0 - 50.0 fL 11/18/2020 12:16 AM T [facility] RDW-CV 12.9 11.2 - 14.8 % 11/18/2020 12:16 AM CDT [facility] MPV 10.2 9.4 - 12.9 fL 11/18/2020 12:16 AM T [facility] nRBC Absolute 0.00 0 10? 3 /uL 11/18/2020 12:16 AM CDT [facility] nRBC Auto 0.0 0 /100 WBC 11/18/2020 12:16 AM T [facility] Blood BLOOD SPECIMEN / Unknown Venipuncture / Unknown 11/17/2020 11:58 PM CDT 11/18/2020 12:08 AM CDT Everton Padilla MD LAB - HEMATOLOGY ORD ERABLES [address] [address], [facility] [phone] * (ABNORMAL) CALCIUM IONIZED WHOLE BLOOD (11/17/2020 11:58 PM CDT) Calcium Ionized 1.12 mmol/L 11/18/2020 12:15 AM CDT [facility] pH 7.57(H) 7.35 - 7.45 pH 11/18/2020 12:15 AM T [facility] Ionized Calcium pH Adjusted 1.20 1.19 - 1.34 mmol/L 11/18/2020 12:15 AM T [facility] Blood WHOLE BLOOD SPECIMEN / Unknown Venipuncture / Unknown 11/17/2020 11:58 PM CDT 11/18/2020 12:06 AM CDT Everton Padilla MD LAB - CHEMISTRY RICARDO ZAVALETA [address] [address], [place] [phone] * (ABNORMAL) BASIC METABOLIC PANEL (CALCIUM TOTAL) (11/17/2020 11:58 PM CDT) BUN 12 7 - 26 mg/dL 11/18/2020 12:40 AM [facility] Creatinine 0.72 0.71 - 1.16 mg/dL 11/18/2020 12:40 AM [facility] Sodium 136 136 - 145 mmol/L 11/18/2020 12:40 AM [facility] Potassium 3.2(L) 3.5 - 4.5 mmol/L 11/18/2020 12:40 AM [facility] Chloride 105 98 - 107 mmol/L 11/18/2020 12:40 AM [facility] CO2 24 22 - 29 mmol/L 11/18/2020 12:40 AM [facility] Glucose 115 70 - 115 mg/dL 11/18/2020 12:40 AM [facility] Calcium 8.5 8.4 - 10.2 mg/dL 11/18/2020 12:40 AM [facility] Anion Gap 10 8 - 18 11/18/2020 12:40 AM [facility] BUN/Creatinine Ratio 17 7 - 23 11/18/2020 12:40 AM [facility] Osmolality Calculated 283 270 - 300 mOsm/kg 11/18/2020 12:40 AM [facility] eGFR by CKD-EPI 66(L) >=90 mL/min/1.7 3 m2 11/18/2020 12:40 AM [facility] Blood BLOOD SPECIMEN / Unknown Venipuncture / Unknown 11/17/2020 11:58 PM CDT 11/18/2020 12:08 AM [facility] Everton Padilla MD LAB - CHEMISTRY RICARDO ZAVALETA [facility] [address] [place] [address], [facility] [phone] * XR ABDOMEN KUB PORTABLE (11/17/2020 10:30 PM CDT) Anatomical Region Laterality Modality Abdomen Radiographic Rosa ging 11/18/2020 8:21 AM CDT Impressions 11/18/2020 3:42 PM CDT IMPRESSION: The gastric tube terminates in the gastric antrum. 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 Dictated by Marsha Austin M.D. (vice president diversity) Dr. JOLEEN Hilton M.D. have personally reviewed and interpreted this examination/study. This report was electronically signed by JOLEEN FERREIRA M.D. ??on 11/18/2020 3:42 PM . Narrative 11/18/2020 3:42 PM CDT EXAMINATION: XR ABDOMEN KUB PORTABLE HISTORY: Gastric tube placement COMPARISON: No prior Procedure Note Joleen Ferreira MD - 11/18/2020 EXAMINATION: XR ABDOMEN KUB PORTABLE HISTORY: Gastric tube placement COMPARISON: No prior IMPRESSION: The gastric tube terminates in the gastric antrum. Splenic arteryaneurysm is again seen. Dictated by Marsha Austin M.D. (vice president diversity) Yobani, Dr. JOLEEN FERREIRA M.D. have personally reviewed and interpreted this examination/study. This report was electronically signed by JOLEEN FERREIRA M.D. on 11/18/2020 3:42 PM . Ezra Rod PA-C DIAGNOSTIC IMAGIN G ORDERABLES * CT HEAD WO CONTRAST (11/17/2020 5:34 AM CDT) Anatomical Region Laterality Modality Head Computed Tomogra phy 11/17/2020 2:05 PM CDT Impressions 11/17/2020 3:28 PM CDT IMPRESSION: 1.Unchanged small foci of intracranial hemorrhage within the left medial parietal lobe without significant mass effect and vasogenic edema. No evidence of midline shift. 2.Scattered small volume subarachnoid hemorrhage in bilateral cerebral hemispheres. No hydrocephalus. 3.Increased left frontoparietal/left periorbital scalp hematoma/soft tissue swelling Dictated by Cameron Mijares MD (Web Page Developer) Yobani, Dr. RAVINDRA XIONG have personally reviewed and interpreted this examination/study. This report was electronically signed by RAVINDRA XIONG ??on 11/17/2020 3:28 PM . Narrative 11/17/2020 3:28 PM CDT EXAMINATION: Computed tomography (CT) of the head without contrast HISTORY: T14.90XA: Trauma TECHNIQUE: CT of the head was performed without contrast according to standard protocol. COMPARISON: CT head without contrast dated 11/16/2020.. FINDINGS: There is redemonstration of multiple subcentimeter foci of intraparenchymal hemorrhage within the left medial parietal lobe, without significant mass effect or surrounding edema. There is scattered small volume of subarachnoid hemorrhage in bilateral cerebral sulci. There is no CT evidence of acute infarct. There is no hydrocephalus, or midline shift. There are mild chronic microvascular ischemic changes. There is redemonstration of likely a dilated perivascular space within the right inferior lentiform nucleus. The paranasal sinuses and tympanomastoid cavities are aerated. The orbits are unremarkable. There is redemonstration of an age-indeterminate fracture of the right nasal process of maxilla. There is increased left frontoparietal scalp soft tissue swelling with adjacent left periorbital soft tissue swelling. Procedure Note Ravindra Xiong MD - 11/17/2020 EXAMINATION: Computed tomography (CT) of the head without contrast HISTORY: T14.90XA: Trauma TECHNIQUE: CT of the head was performed without contrast according to standard protocol. COMPARISON: CT head without contrast dated 11/16/2020.. FINDINGS: There is redemonstration of multiple subcentimeter foci of intraparenchymal hemorrhage within the left medial parietal lobe,without significant mass effect or surrounding edema. There is scattered small volume of subarachnoid hemorrhage in bilateral cerebral sulci. There is no CT evidence of acute infarct. There is no hydrocephalus, or midline shift. There are mild chronic microvascular ischemic changes. There is redemonstration of likely a dilated perivascular space withinthe right inferior lentiform nucleus. The paranasal sinuses and tympanomastoid cavities are aerated. Theorbits are unremarkable. There is redemonstration of an age-indeterminate fracture of the right nasal process of maxilla. There is increased left frontoparietal scalp soft tissue swelling with adjacent left periorbital soft tissue swelling. IMPRESSION: 1.Unchanged small foci of intracranial hemorrhage within the left medial parietal lobe without significant mass effect and vasogenic edema. No evidence of midline shift. 2.Scattered small volume subarachnoid hemorrhage in bilateral cerebral hemispheres. No hydrocephalus. 3.Increased left frontoparietal/left periorbital scalp hematoma/soft tissue swelling Dictated by Cameron Mijares MD (Web Page Developer) I, Dr. RAVINDRA XIONG have personally reviewed and interpreted this examination/study. This report was electronically signed by RAVINDRA XIOGN on 11/17/2020 3:28PM . Ventura Baker MD CT ORDERABLES * EKG 12-LEAD (11/17/2020 4:16 AM CDT) Ventricular Rate 83 BPM [facility] Atrial Rate 83 BPM [facility] P-R Interval 138 ms [facility] QRS Duration ms 90 ms [facility] Q-T Interval ms 378 ms [facility] QTC Calculation (Bezet) 444 ms [facility] Calculated P [place] 6 degrees [facility] Calculated R [place] 19 degrees [facility] Calculated T [place] 48 degrees [facility] Interpretation EKG NORMAL SINUS RHYTHM POOR R WAVE PROGRESSION BORDERLINE ECG NO PREVIOUS ECGS AVAILABLE Confirmed by fellow Lakia Gilse ([id number]) on 11/18/2020 1:37:12 PM Confirmed by Ronal Hernandez ([id number]) on 11/19/2020 10:47:32 AM [facility] MUSE 11/17/2020 4:16 AM CDT 11/19/2020 10:47 AM CDT Ventura Baker MD ECG ORDERABLES [facility] MUSE * XR CHEST 1VW PORTABLE (11/17/2020 4:14 AM CDT) Anatomical Region Laterality Modality Chest Radiographic Rosa ging 11/17/2020 9:15 AM CDT Impressions 11/17/2020 10:49 AM CDT FINDINGS/IMPRESSION: Lines and tubes: *Endotracheal tube terminates in the distal thoracic trachea, approximately 1.5 cm above the efrain. *NG/OG tube courses below the diaphragm and terminates in the stomach. Low lung volumes. There is no focal consolidation, pleural effusion, or pneumothorax. The cardiomediastinal silhouette is normal. Possible fracture of the left fourth rib laterally. There is a circular density with peripheral calcification in the left upper quadrant of the abdomen, likely representing a splenic artery aneurysm seen on prior CT chest abdomen pelvis dated 11/16/2020. Dictated by Jessica Felipe MD (radiology director). Dr. JOLEEN Hilton M.D. have personally reviewed and interpreted this examination/study. This report was electronically signed by JOLEEN FERREIRA M.D. ??on 11/17/2020 10:49 AM . Narrative 11/17/2020 10:49 AM CDT EXAMINATION: XR CHEST 1VW PORTABLE HISTORY: S06.9X9A: Traumatic brain injury with loss of consciousness, initial encounter J96.90: Respiratory failure after trauma COMPARISON: CT chest abdomen pelvis with contrast dated 11/16/2020 Procedure Note Joleen Ferreira MD - 11/17/2020 EXAMINATION: XR CHEST 1VW PORTABLE HISTORY: S06.9X9A: Traumatic brain injury with loss of consciousness, initial encounter J96.90: Respiratory failure after trauma COMPARISON: CT chest abdomen pelvis with contrast dated 11/16/2020 FINDINGS/IMPRESSION: Lines and tubes: *Endotracheal tube terminates in the distal thoracic trachea, approximately 1.5 cm above the efrain. *NG/OG tube courses below the diaphragm and terminates in the stomach. Low lung volumes. There is no focal consolidation, pleural effusion, or pneumothorax. The cardiomediastinal silhouette is normal. Possible fracture of the left fourth rib laterally. There is a circular density with peripheral calcification in the left upper quadrant of the abdomen, likely representing a splenic artery aneurysm seen on prior CT chest abdomen pelvis dated 11/16/2020. Dictated by Jessica Felipe MD (radiology director). Dr. JOLEEN Hilton M.D. have personally reviewed and interpreted this examination/study. This report was electronically signed by JOLEEN FERREIRA M.D. on 11/17/2020 10:49 AM . Everton Padilla MD DIAGNOSTIC IMAGING O RDERABLES * (ABNORMAL) BLOOD GASES ART + COOX PANEL (11/17/2020 4:08 AM CDT) pH Arterial 7.41 7.35 - 7.45 pH 11/17/2020 4:16 AM [facility] pO2 Arterial 274(H) 80 - 100 mmHg 11/17/2020 4:16 AM [facility] pCO2 Arterial 42 35 - 45 mmHg 4:16 AM [facility] HCO3 Arterial 27 20 - 30 mmol/l 11/17/2020 4:16 AM [facility] BE Arterial 1.7 -2.0 - 2.0 mmol/L 11/17/2020 4:16 AM [facility] Oxyhemoglobin Arterial 97.0 % 11/17/2020 4:16 AM [facility] Dexoyhemoglobin (HHB) % 1.2 % 11/17/2020 4:16 AM [facility] Methemoglobin 0.8 0.0 - 2.0 % 11/17/2020 4:16 AM [facility] Carboxyhemoglobin 1.0 0.0 - 2.0 % 2020 4:16 AM [facility] O2 Content Arterial 17.4 Interpret within clinical context mg/dL 11/17/2020 4:16 AM [facility] Hemoglobin by COOX 12.3 12.0 - 17.6 g/dL 11/17/2020 4:16 AM [facility] O2 Saturation Arterial 99 90 - 100 % 11/17/2020 4:16 AM [facility] FI O2 Arterial 60.0 % 11/17/2020 4:16 AM [facility] Blood, arterial ARTERIAL BLOOD SPECIMEN / Unknown Arterial Puncture / Unknown 11/17/2020 4:08 AM T 11/17/2020 4:14 AM [facility] - 11/17/2020 4:16 AM [facility] Carboxyhemoglobin Normal Concentration: Non-smokers: 0-2%; Smokers: 0-9%; Toxic: >20% Gwen LEBRON LATEX [employer] MACHINE OPERATOR LAB - BLOOD GASES ORDERABLES [facility] [address] [place] [address], [place] [phone] * PHOSPHORUS BLOOD (11/17/2020 1:30 AM CDT) Pathologist [facility] [place] Phosphorus 4.2 2.8 - 5.1 mg/dL 11/17/2020 1:59 AM CDT [facility] Blood BLOOD SPECIMEN / Unknown Venipuncture / Unknown 11/17/2020 1:30 AM CDT 11/17/2020 1:34 AM CDT Everton Padilla MD LAB - CHEMISTRY [facility] [address] [address], [place] [phone] * MAGNESIUM BLOOD (11/17/2020 1:30 AM CDT) Pathologist [facility] [place] Magnesium 1.8 1.6 - 2.6 mg/dL 11/17/2020 1:59 AM CDT [facility] Blood BLOOD SPECIMEN / Unknown Venipuncture / Unknown 11/17/2020 1:30 AM CDT 11/17/2020 1:34 AM CDT Everton Padilla MD LAB - CHEMISTRY [facility] [address] [address], [place] [phone] * (ABNORMAL) CBC W/O DIFFERENTIAL (11/17/2020 1:30 AM CDT) WBC 16.3(H) 3.5 - 10.5 10? 3 /uL 11/17/2020 1:40 AM CDT [facility] RBC 4.19(L) 4.30 - 5.70 10? 6 /uL 11/17/2020 1:40 AM CDT [facility] Hemoglobin 12.4 12.0 - 17.6 g/dL 11/17/2020 1:40 AM CDT [facility] Hematocrit 36.6 35.2 - 51.7 % 11/17/2020 1:40 AM [facility] MCV 87.4 80.7 - 98.3 fL 11/17/2020 1:40 AM [facility] MCH 29.6 26.7 - 34.0 pg 11/17/2020 1:40 AM [facility] MCHC 33.9 30.8 - 35.9 g/dL 11/17/2020 1:40 AM [facility] Platelet Count 278 150 - 400 10? 3 /uL 11/17/2020 1:40 AM [facility] RDW-SD 41.7 36.0 - 50.0 fL 11/17/2020 1:40 AM [facility] RDW-CV 13.1 11.2 - 14.8 % 11/17/2020 1:40 AM [facility] MPV 10.0 9.4 - 12.9 fL 11/17/2020 1:40 AM [facility] nRBC Absolute 0.00 0 10? 3 /uL 11/17/2020 1:40 AM [facility] nRBC Auto 0.0 0 /100 WBC 11/17/2020 1:40 AM [facility] Blood BLOOD SPECIMEN / Unknown Venipuncture / Unknown 11/17/2020 1:30 AM CDT 11/17/2020 1:34 AM T Everton Padilla MD LAB - HEMATOLOGY ORD ERABLES Performing Organization Address City/State/[place] Co de Phone Number [facility] [address] [place] [address] [phone] * (ABNORMAL) CALCIUM IONIZED WHOLE BLOOD (11/17/2020 1:30 AM CDT) Calcium Ionized 1.19 mmol/L 11/17/2020 1:36 AM [facility] pH 7.37 7.35 - 7.45 pH 11/17/2020 1:36 AM [facility] Ionized Calcium pH Adjusted 1.18(L) 1.19 - 1.34 mmol/L 11/17/2020 1:36 AM [facility] Blood WHOLE BLOOD SPECIMEN / Unknown Venipuncture / Unknown 11/17/2020 1:30 AM CDT 11/17/2020 1:33 AM CDT Everton Padilla MD LAB - CHEMISTRY RICARDO ZAVALETA [facility] [address] [place] [address], [facility] [phone] * (ABNORMAL) BASIC METABOLIC PANEL (CALCIUM TOTAL) (11/17/2020 1:30 AM CDT) BUN 15 7 - 26 mg/dL 11/17/2020 1:59 AM [facility] Creatinine 0.85 0.71 - 1.16 mg/dL 11/17/2020 1:59 AM [facility] Sodium 141 136 - 145 mmol/L 11/17/2020 1:59 AM [facility] Potassium 4.2 3.5 - 4.5 mmol/L 11/17/2020 1:59 AM [facility] Chloride 108(H) 98 - 107 mmol/L 11/17/2020 1:59 AM [facility] CO2 26 22 - 29 mmol/L 11/17/2020 1:59 AM [facility] Glucose 137(H) 70 - 115 mg/dL 11/17/2020 1:59 AM [facility] Calcium 9.3 8.4 - 10.2 mg/dL 11/17/2020 1:59 AM [facility] Anion Gap 11 8 - 18 11/17/2020 1:59 AM [facility] BUN/Creatinine Ratio 18 7 - 23 11/17/2020 1:59 AM [facility] Osmolality Calculated 295 270 - 300 mOsm/kg 11/17/2020 1:59 AM [facility] eGFR by CKD-EPI 62(L) >=90 mL/min/1.7 3 m2 11/17/2020 1:59 AM [facility] Blood BLOOD SPECIMEN / Unknown Venipuncture / Unknown 11/17/2020 1:30 AM CDT 11/17/2020 1:34 AM CDT Everton Padilla MD LAB - CHEMISTRY RICARDO ZAVALETA [facility] [address] [place] [address], [place] [phone] * PREPARE (CROSSMATCH) RBC UNIT(S), 2 Units (11/16/2020 8:55 PM CDT) Unit Description AS1 LR PRBC [facility] Unit ABO O [facility] B[facility]OD [facility] Unit Rh POS [facility] B[facility]OD [facility] Product Number R02 [facility] B LOOD BANK LAB Unit Donor # [id number] [facility] BLOOD [facility] LAB Unit Status released [facility] BLOO D BANK LAB Product Code [id number] [facility] BLO OD BANK LAB Blood Type Barcode 5100 [facility] BLOOD BANK LAB Expiration Date S BLOOD BANK LAB Unit Description AS1 LR PRBC [facility] BLOOD BANK LAB Unit ABO O [facility] BLOOD [facility] LAB Unit Rh POS [facility] BLOOD B[facility] LAB Product Number R02 [facility] B LOOD [facility]ANK LAB Unit Donor # [id number] [facility] BLOOD [facility] LAB Unit Status released [facility] BLOO D BANK LAB Product Code [id number] [facility] BLO OD BANK LAB Blood Type Barcode 5100 [facility] BLOOD BANK LAB Expiration Date S BLOOD BANK LAB Blood Bank BLOOD SPECIMEN / Unknown 11/16/2020 7:32 PM CDT Ventura Baker MD LAB - BLOOD BAN K ORDERABLES [facility] B[facility]OD [facility] [address] [place] [address], [place] [phone] * 2 Units (11/16/2020 8:55 PM CDT) Unit Description LR Whole BLood [facility] BLOOD [facility] LAB Unit ABO O [facility] BLOOD [facility]ANK LAB Unit Rh POS [facility] BLOOD B[facility] LAB Product Number [id number] [facility] B LOOD [facility]ANK LAB Unit Donor # [id number] [facility] BLOOD BANK LAB Unit Status released [facility] BLOO D BANK LAB Product Code [id number] [facility] BLO OD BANK LAB Blood Type Barcode 5100 [facility] BLOOD BANK LAB Expiration Date S BLOOD BANK LAB Unit Description LR Whole BLood [facility] BLOOD BANK LAB Unit ABO O [facility] BLOOD [facility]ANK LAB Unit Rh POS [facility] BLOOD BANK LAB Product Number [id number] [facility] B LOOD BANK LAB Unit Donor # [id number] [facility] BLOOD BANK LAB Unit Status released [facility] BLOO D BANK LAB Product Code [id number] [facility] BLO OD BANK LAB Blood Type Barcode 5100 [facility] BLOOD BANK LAB Expiration Date S BLOOD BANK LAB Blood Bank BLOOD SPECIMEN / Unknown 11/16/2020 7:32 PM CDT Ventura Baker MD LAB - BLOOD BAN K ORDERABLES [facility] BLOOD [facility] LAB [address] [place] [address], [facility] [phone] * (ABNORMAL) BLOOD GASES ART + COOX PANEL (11/16/2020 8:50 PM CDT) pH Arterial 7.36 7.35 - 7.45 pH 11/16/2020 8:56 PM T [facility] pO2 Arterial 237(H) 80 - 100 mmHg 11/16/2020 8:56 PM T [facility] pCO2 Arterial 44 35 - 45 mmHg 8:56 PM T [facility] HCO3 Arterial 25 20 - 30 mmol/l 11/16/2020 8:56 PM T [facility] BE Arterial -0.8 -2.0 - 2.0 mmol/L 11/16/2020 8:56 PM [facility] Oxyhemoglobin Arterial 97.7 % 11/16/2020 8:56 PM T [facility] Dexoyhemoglobin (HHB) % 0.2 % 11/16/2020 8:56 PM T [facility] Methemoglobin 1.0 0.0 - 2.0 % 11/16/2020 8:56 PM T [facility] Carboxyhemoglobin 1.2 0.0 - 2.0 % 2020 8:56 PM [facility] O2 Content Arterial 19.5 Interpret within clinical context mg/dL 11/16/2020 8:56 PM [facility] Hemoglobin by COOX 13.8 12.0 - 17.6 g/dL 11/16/2020 8:56 PM [facility] O2 Saturation Arterial 100 90 - 100 % 11/16/2020 8:56 PM [facility] FI O2 Arterial 60.0 % 11/16/2020 8:56 PM [facility] Blood, arterial ARTERIAL BLOOD SPECIMEN / Unknown Arterial Puncture / Unknown 11/16/2020 8:50 PM CDT 11/16/2020 8:53 PM CDT Narrative [facility] - 11/16/2020 8:56 PM T Carboxyhemoglobin Normal Concentration: Non-smokers: 0-2%; Smokers: 0-9%; Toxic: >20% Estrada Dial MD LAB - BLOOD GASES OR DERABLES Performing Organization Address City/State/[place] Co de Phone Number [facility] [address] [place] [address], [facility] [phone] * (ABNORMAL) URINE DRUG SCREEN IMMUNOASSAY (11/16/2020 8:28 PM [facility] Amphetamines Screen Urine Negative Negative : < 1000 ng/mL 11/16/2020 8:50 PM [facility] Barbiturates Screen Urine Negative Negative : < 200 ng/mL 11/16/2020 8:50 PM [facility] Benzodiazepine Screen Urine Positive(A) Negative : < 200 ng/mL 11/16/2020 8:50 PM [facility] Comment: Positive urine benzodiazepine screening results should be confirmed by another generally accepted non-immunological method such as gas chromatography or mass spectrometry. ? Opiates Urine Positive(A) Negative : < 300 ng/mL 11/16/2020 8:50 PM [facility] Comment:Positive urine opiat e screening results should be confirmed by another generally accepted non-immunological method such as gas chromatography or mass spectrometry. Cocaine Metabolites Urine Negative Negative : < 300 ng/mL 11/16/2020 8:50 PM CDT [facility] Phencyclidine Screen Urine Negative Negative : < 25 ng/ml 11/16/2020 8:50 PM CDT [facility] Cannabinoids Screen Urine Positive(A) Negative : <50 ng/mL 11/16/2020 8:50 PM CDT [facility] Comment:Positive urine canna binoids (THC) screening results should be confirmed by another generally accepted non-immunological method such as gas chromatography or mass spectrometry. Methadone Screen Urine Negative Negative : < 300 ng/mL 11/16/2020 8:50 PM CDT [facility] Fentanyl Screen Urine Positive(A) Negative : <1.0 ng/mL 11/16/2020 8:50 PM CDT [facility] Comment:Positive urine fenta nyl screening results should be confirmed by another generally accepted non-immunological method such as gas chromatography or mass spectrometry. Urine URINE / Unknown Collection / Unknown 11/16/2020 8:28 PM CDT 11/16/2020 8:33 PM CDT [facility] - 11/16/2020 8:50 PM CDT The Urine Toxicology Screening Panel does not screen for Propoxyphene, Meprobamate, Carisoprodol, Trazodone, hcyb-mhg-rajsdoj medications and/or volatiles (Acetone, Isopropanol, Methanol or Ethylene Glycol). Ethanol, Salicylate, Acetaminophen, Tricyclic Antidepressants and several therapeutic drugs may be individually assayed in serum or plasma specimen. Toxicology testing by the [facility] is an aid to medical diagnosis and treatment of patients. No documented chain of custody was maintained. Results are intended to be used for clinical purposes only. ? Ventura Baker MD LAB - URINE EMILY LOPEZ ORDERABLES Performing Organization Address City/State/[facility] de Phone Number [facility] [address] [place] [address], [facility] [phone] * SARS-COV-2 (COVID-19)+INFLU A+B PCR RAPID (11/16/2020 8:18 PM CDT) COVID-19 PCR Not detected Not detected 11/17/19 8:54 PM CDT [facility] Influenza A Rapid LISA Not Detected Not Detected 11/16/2020 8:54 PM CDT [facility] Influenza B LISA Rapid Not Detected Not Detected 11/16/2020 8:54 PM CDT [facility] Microbiology SPECIMEN FROM NASOPHARYNGEAL STRUCTURE / Unknown Collection / Unknown 11/16/2020 8:18 PM CDT 11/16/2020 8:25 PM CDT Narrative [facility] - 11/16/2020 8:54 PM CDT Influenza assay performed by Nucle[employer] [...] acid amplification assay performance was validated by [facility]. This test has been [...] this EUA assay are available upon request. Ventura Baker MD LAB - MICROBIOL OGY ORDERABLES [facility] [address] [place] [address], [facility] [phone] * BLOOD TYPE VERIFICATION (11/16/2020 8:15 PM CDT) ABO Rh O POS 11/16/2020 8:5 1 PM CDT [facility] B[facility]OD [facility] LAB Blood Bank BLOOD SPECIMEN / Unknown Venipuncture / Unknown 11/16/2020 8:15 PM CDT 11/16/2020 8:25 PM CDT Ventura Baker MD LAB - BLOOD BAN K ORDERABLES Performing Organization Address [facility]/[place]UST Co de Phone Number [facility] B[facility]OD [facility] LAB [address] [place] [address], [facility] [phone] * CT FACIAL BONES WO CONTRAST - [...] spine. This report was electronically signed by RAVINDRA XIONG ??on 11/17/2020 11:28 AM . Narrative [...] seen at bilateral L4-5 levels. Procedure Note Ravindra Xiong MD - 11/17/2020 EXAMINATION: Computed tomography [...] spine. This report was electronically signed by RAVINDRA XIONG on 11/17/2020 11:28 AM . Ventura [...] spine. This report was electronically signed by RAVINDRA XIONG ??on 11/17/2020 11:28 AM . Narrative [...] seen at bilateral L4-5 levels. Procedure Note Ravindra Xiong MD - 11/17/2020 EXAMINATION: Computed tomography [...] spine. This report was electronically signed by RAVINDRA XIONG on 11/17/2020 11:28 AM . Ventura [...] spine. This report was electronically signed by RAVINDRA XIONG ??on 11/17/2020 11:28 AM . Narrative [...] seen at bilateral L4-5 levels. Procedure Note Ravindra Xiong MD - 11/17/2020 EXAMINATION: Computed tomography [...] spine. This report was electronically signed by RAVINDRA XIONG on 11/17/2020 11:28 AM . Ventura [...] spine. This report was electronically signed by RAVINDRA XIONG ??on 11/17/2020 11:28 AM . Narrative [...] seen at bilateral L4-5 levels. Procedure Note Ravindra Xiong MD - 11/17/2020 EXAMINATION: Computed tomography [...] spine. This report was electronically signed by RAVINDRA XIONG on 11/17/2020 11:28 AM . Ventura [...] Kwon. Report drafted by Geo Chavez (resident) IDr. DUY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 Sat11/22/20 at 1100, Until Discontinued $ Given 11/25/2020 12:15 PM CDT 300 mg NG Tube $ Given 11/25/2020 8:49 AM CDT 300 mg G Tube $ Given 11/24/2020 8:31 PM CDT 300 mg OG Tube gabapentin (Neurontin) capsule 300 mg 300 mg, Oral, 3 TIMES DAILY, First dose (after last modification) on Sat11/26/20 at 0900, Until Discontinued $ Given 11/26/2020 9:15 AM CDT 300 mg heparin injection 5,000 Units 5,000 Units, Subcutaneous, EVERY 8 HOURS, First dose on Sat11/18/20 at 0815, Until Discontinued $ Given 11/26/2020 5:26 AM CDT 5,000 Units Abd Right Lower Quadrant $ Given 11/25/2020 9:01 PM CDT 5,000 Units A bd Right Lower Quadrant $ Given 11/25/2020 12:15 PM CDT 5,000 Units Abdominal Tissue HYDROmorphone (Dilaudid) injection 0.4 mg 0.4 mg, Intravenous, EVERY 4 HOURS PRN, Moderate Pain, Starting on Sat11/18/20 at 2148, Until Sat11/22/20 at 1018 $ Given 11/19/2020 4:07 PM CDT 0.4 mg $ Given 11/18/2020 11:13 PM CDT 0.4 mg HYDROmorphone (Dilaudid) injection 0.5 mg 0.5 mg, Intravenous, EVERY 4 HOURS PRN, unrelieved pain, Starting on Sat11/22/20 at 1017, Until Sat11/25/20 at 0735 $ Given 11/22/2020 4:26 PM CDT 0.5 mg HYDROmorphone (Dilaudid) injection 0.6 mg 0.6 mg, Intravenous, EVERY 4 HOURS PRN, Severe Pain, Starting on Sat11/18/20 at 2148, Until Sat11/22/20 at 1018 $ Given 11/22/2020 9:24 AM CDT 0.6 mg $ Given 11/20/2020 5:04 AM CDT 0.6 mg $ Given 11/20/2020 12:20 AM CDT 0.6 mg iopamidol (Isovue 370) 76 % contrast Intravenous, CONTRAST ONCE, Starting on Sat11/16/20 at 1903, Until Sat11/18/20 at 1902 $ Given - Contrast 11/16/2020 7:05 PM CDT 100 mL labetalol (Normodyne; Trandate) injection 20 mg 20 mg, Intravenous, EVERY 2 HOURS PRN, SBP greater than 170 mmHg, Hold for HR < 60, Starting on Sat11/18/20 at 2147, Until 11/26/20 at 1238, Max IV dose is 300mg/24 hours. $ Given 11/19/2020 4:19 PM CDT 20 mg levETIRAcetam (Keppra) 500 mg in 100 mL IVPB 500 mg, at 400 mL/hr, Intravenous, EVERY 12 HOURS, 14 doses, First dose on Sat11/17/20 at 0900, Last dose on Sat11/23/20 at 2100 $ New Bag/Syringe 11/18/2020 8:48 AM CDT 500 mg 400 mL/hr $ New Bag/Syringe 11/17/2020 9:05 PM CDT 500 mg 400 mL /hr Current Rate 11/17/2020 8:32 AM CDT 400 mL/hr LORazepam (Ativan) injection 1 mg 1 mg, Intravenous, EVERY 6 HOURS, First dose on Sat11/18/20 at 1430, Until Discontinued $ Given 11/18/2020 1:56 PM CDT 1 mg LORazepam (Ativan) injection 2 mg 2 mg, Intravenous, EVERY 4 HOURS PRN, Anxiety, CIWA score 8-14, Starting on Sat11/18/20 at 2014, Until 11/26/20 at 1238, Administer IV if oral route is unavailable or not tolerated. Repeat CIWA-Ar 1 hour after every dose and repeat dose if CIWA-Ar score remains greater than 8. Notify physician if more than 1 repeated dose is needed. $ Given 11/20/2020 8:10 AM CDT 2 mg $ Given 11/19/2020 11:16 PM CDT 2 mg $ Given 11/19/2020 3:05 PM CDT 2 mg LORazepam (Ativan) injection ADS Med 1 dose, Starting on Sat11/18/20 at 1352, Until Sat11/18/20 at 1356, Created by kindra chung LORazepam (Ativan) tablet 2 mg 2 mg, Oral, EVERY 4 HOURS PRN, Anxiety, CIWA score 8-14, Starting on Sat11/18/20 at 2014, Until 11/26/20 at 1238, Repeat CIWA-Ar 1 hour after every dose and repeat dose if CIWA-Ar score remains greater than 8. Notify physician if more than 1 repeated dose is needed. magnesium oxide (Mag-Ox) tablet 400 mg 400 mg, Oral, ONCE, 1 dose, On Sat11/25/20 at 0800 $ Given 11/25/2020 8:31 AM CDT 400 mg magnesium sulfate 2 g in 50 mL bolus 2 g, at 25 mL/hr, Administer over 120 Minutes, Intravenous, ONCE, 1 dose, On [place] 11/17/20 at 0415, Infuse at 1 gm/hr Current Rate 11/17/2020 4:42 AM CDT 25 mL/h r $ New Bag/Syringe 11/17/2020 4:38 AM CDT 2 g 25 mL/ hr magnesium sulfate 2 g in 50 mL bolus 2 g, at 25 mL/hr, Administer over 120 Minutes, Intravenous, ONCE, 1 dose, On Sat11/18/20 at 0145, Infuse at 1 gm/hr. Pt is NPO and needs IV repletion $ New Bag/Syringe 11/18/2020 1:52 AM CDT 2 g 25 mL/hr magnesium sulfate 2 g in 50 mL bolus 2 g, at 25 mL/hr, Administer over 120 Minutes, Intravenous, ONCE, 1 dose, On 11/19/20 at 0500, Infuse at 1 gm/hr $ New Bag/Syringe 11/19/2020 4:33 AM CDT 2 g 25 mL/hr magnesium sulfate 2 g in 50 mL bolus 2 g, at 25 mL/hr, Administer over 120 Minutes, Intravenous, ONCE, 1 dose, On Sat11/20/20 at 0215, Infuse at 1 gm/hr. Pt is NPO and needs IV repletion $ New Bag/Syringe 11/20/2020 2:36 AM CDT 2 g 25 mL/hr magnesium sulfate 2 g in 50 mL bolus 2 g, at 25 mL/hr, Administer over 120 Minutes, Intravenous, ONCE, 1 dose, On Sat11/21/20 at 0445, Infuse at 1 gm/hr $ New Bag/Syringe 11/21/2020 5:34 AM CDT 2 g 25 mL/hr magnesium sulfate 2 g in 50 mL bolus 2 g, at 25 mL/hr, Administer over 120 Minutes, Intravenous, ONCE, 1 dose, On Sat11/23/20 at 0400, Infuse at 1 gm/hr $ New Bag/Syringe 11/23/2020 6:02 AM CDT 2 g 25 mL/hr magnesium sulfate 2 g in 50 mL bolus 2 g, at 25 mL/hr, Administer over 120 Minutes, Intravenous, ONCE, 1 dose, On Sat11/24/20 at 0200, Infuse at 1 gm/hr Current Rate 11/24/2020 4:00 AM CDT 25 mL/h r $ New Bag/Syringe 11/24/2020 2:59 AM CDT 2 g 25 mL/ hr methocarbamol (Robaxin) tablet 750 mg 750 mg, Oral, EVERY 6 HOURS PRN, Muscle Spasms, Starting on Sat11/25/20 at 2148, Until 11/26/20 at 1238 multivitamin daily tablet 1 tablet 1 tablet, Oral, DAILY, First dose on Sat11/18/20 at 2045, Until Discontinued, . WASTE DISPOSAL INSTRUCTIONS: Black Bin Disposal required. $ Given 11/26/2020 9:15 AM CDT 1 tablet $ Given 11/25/2020 8:31 AM CDT 1 tablet $ Given 11/24/2020 8:25 AM CDT 1 tablet oxyCODONE (immediate release) (Roxicodone) tablet 10 mg 10 mg, Oral, EVERY 4 HOURS PRN, Severe Pain, Starting on Sat11/25/20 at 2148, Until 11/26/20 at 1238 oxyCODONE (immediate release) (Roxicodone) tablet 5 mg 5 mg, Oral, EVERY 4 HOURS PRN, Moderate Pain, Starting on Sat11/25/20 at 2148, Until 11/26/20 at 1238 oxymetazoline (Afrin) 0.05 % nasal spray 1 spray 1 spray, Each Nostril, 2 TIMES DAILY, First dose on Sat11/24/20 at 2100, Until Discontinued, . WASTE DISPOSAL INSTRUCTIONS: Black Bin Disposal required. $ Given 11/25/2020 10:26 PM CDT 1 spray $ Given 11/25/2020 8:50 AM CDT 1 spray $ Given 11/24/2020 8:35 PM CDT 1 spray potassium chloride (Klor-Con) packet 20 mEq 20 mEq, Enteral Tube, ONCE, 1 dose, On Sat11/23/20 at 0400, DISSOLVE IN 120 ML OF COLD WATER OR JUICE AND DRINK SLOWLY $ Given 11/23/2020 6:04 AM CDT 20 mEq OG Tube potassium chloride (Klor-Con) packet 40 mEq 40 mEq, Enteral Tube, ONCE, 1 dose, On Sat11/21/20 at 0445, DISSOLVE IN 120 ML OF COLD WATER OR JUICE AND DRINK SLOWLY $ Given 11/21/2020 5:39 AM CDT 40 mEq OG Tube potassium chloride 40 mEq in 270 mL bolus 40 mEq, at 67.5 mL/hr, Administer over 4 Hours, Intravenous, ONCE, 1 dose, On Sat11/23/20 at 0400 Rate Change 11/23/2020 10:22 AM CDT 5 mL/hr Rate Change 11/23/2020 10:08 AM CDT 67.5 mL/hr Rate Change 11/23/2020 10:02 AM CDT 5 mL/hr potassium chloride ER (Klor-Con M) tablet 40 mEq 40 mEq, Oral, ONCE, 1 dose, On Sat11/25/20 at 0800, Do not crush or chew. $ Given 11/25/2020 8:31 AM CDT 40 mEq potassium phosphate 15 mmol in dextrose 5 % 250 mL bolus 15 mmol, at 62.5 mL/hr, Administer over 4 Hours, Intravenous, ONCE, 1 dose, On Sat11/20/20 at 0300, 3 mmol phosphate = 4.4 mEq potassium $ New Bag/Syringe 11/20/2020 2:35 AM CDT 15 mmol 62.5 mL/hr potassium phosphate 15 mmol in dextrose 5 % 250 mL bolus 15 mmol, at 62.5 mL/hr, Administer over 4 Hours, Intravenous, ONCE, 1 dose, On Sat11/21/20 at 0445, 3 mmol phosphate = 4.4 mEq potassium $ New Bag/Syringe 11/21/2020 6:44 AM CDT 15 mmol 62.5 mL/hr potassium phosphate 15 mmol in dextrose 5 % 250 mL bolus 15 mmol, at 62.5 mL/hr, Administer over 4 Hours, Intravenous, ONCE, 1 dose, On Sat11/24/20 at 0200, 3 mmol phosphate = 4.4 mEq potassium Current Rate 11/24/2020 6:00 AM CDT 62.5 mL/hr Restarted 11/24/2020 5:52 AM CDT 62.5 mL/hr Current Rate 11/24/2020 4:00 AM CDT 62.5 mL/hr potassium phosphate 20 mmol in d5w 250 mL bolus 20 mmol, at 62.5 mL/hr, Administer over 4 Hours, Intravenous, ONCE, 1 dose, On Sat11/22/20 at 0500, 3 mmol phosphate = 4.4 mEq potassium Current Rate 11/22/2020 5:38 AM CDT 62.5 mL/hr Current Rate 11/22/2020 5:23 AM CDT 62.5 mL/hr $ New Bag/Syringe 11/22/2020 5:18 AM CDT 20 mmol 62.5 m L/hr potassium phosphate 30 mmol in dextrose 5 % 260 mL bolus 30 mmol, at 43.33 mL/hr, Administer over 6 Hours, Intravenous, ONCE, 1 dose, On Sat11/18/20 at 0200, 3 mmol phosphate = 4.4 mEq potassium $ New Bag/Syringe 11/18/2020 1:47 AM CDT 30 mmol 43.33 mL/hr potassium phosphate 30 mmol in dextrose 5 % 260 mL bolus 30 mmol, at 43.33 mL/hr, Administer over 6 Hours, Intravenous, ONCE, 1 dose, On Sat11/19/20 at 0500, 3 mmol phosphate = 4.4 mEq potassium $ New Bag/Syringe 11/19/2020 5:56 AM CDT 30 mmol 43.33 mL/hr propofol (Diprivan) 1000 mg in 100 mL infusion ADS Med 1 dose, Starting on Sat11/16/20 at 1857, Until Sat11/17/20 at 0714, Created by cabinet override Vial and Tubing should be changed and/or discarded every 12 hours. propofol (Diprivan) bolus from infusion bag 2 mg 2 mg, Intravenous, BOLUS FROM BAG PRN, to maintain RASS GOAL, Starting on Sat11/20/20 at 0858, Until Sat11/23/20 at 1232, Bolus from bag every 5 minutes to maintain RASS goal. Bolus From Bag 11/22/2020 6:40 PM CDT 2 mg propofol (Diprivan) infusion 0-80 mcg/kg/min, Intravenous, CONTINUOUS, Starting on Sat11/16/20 at 1930, Until Sat11/16/20 at 1917, Above RASS goal (agitated): Assess and treat pain first. ??Increase rate by ordered dose unless hemodynamically unstable. At RASS goal and no change in 4 hours: Decrease rate by 10 mcg/kg/min. Below RASS goal (unarousable): Hold infusion until at goal RASS then restart at 50% previous rate. If significant hemodynamic changes, hold or decrease rate and notify physician. Titrate/administer as needed to achieve RASS goal. Note: The CPOT goal should be achieved first with the use of the ordered analgesic medication prior to targeting RASS goal with the sedative. Vial and Tubing should be changed and/or discarded every 12 hours., Titration Parameters: Custom Parameters, Indication: Sedation, Initiate infusion at: 10 mcg/kg/min, Titrate infusion by: 5 mcg/kg/min, Titrate every: 2 minutes, To maintain a RASS score of: RASS score of 0 to -1 = Alert and Calm to Drowsy, Notify physician if: Unachievable RASS goal despite max dose, Contact physician for: Significant hemodynamic changes, inability to reach RASS goal despite maximal dosage. $ New Bag/Syringe 11/16/2020 7:00 PM CDT 10 mcg/kg/min propofol (Diprivan) infusion 0-80 mcg/kg/min ? 80 kg (0-38.4 mL/hr), Intravenous, CONTINUOUS, Starting on Sat11/16/20 at 2000, Until Sat11/18/20 at 1742, Above RASS goal (agitated): Assess and treat pain first. ??Increase rate by ordered dose unless hemodynamically unstable. At RASS goal and no change in 4 hours: Decrease rate by 10 mcg/kg/min. Below RASS goal (unarousable): Hold infusion until at goal RASS then restart at 50% previous rate. If significant hemodynamic changes, hold or decrease rate and notify physician. Titrate/administer as needed to achieve RASS goal. Note: The CPOT goal should be achieved first with the use of the ordered analgesic medication prior to targeting RASS goal with the sedative. Vial and Tubing should be changed and/or discarded every 12 hours., Titration Parameters: Custom Parameters, Indication: Sedation, Initiate infusion at: 10 mcg/kg/min, Titrate infusion by: 5 mcg/kg/min, Titrate every: 2 minutes, To maintain a RASS score of: 0 to -1 (Alert and Calm to Drowsy), Notify physician if: Unachievable RASS goal despite max dose, Contact physician for: Significant hemodynamic changes, inability to reach RASS goal despite maximal dosage. Rate Change 11/18/2020 10:48 AM CDT 25 mcg/kg/min 12 mL/hr Rate Change 11/18/2020 10:05 AM CDT 30 mcg/kg/min 14.4 mL/ hr Rate Change 11/18/2020 9:51 AM CDT 35 mcg/kg/min 16.8 mL/h r propofol (Diprivan) infusion 0-100 mcg/kg/min ? 80 kg (0-48 mL/hr), Intravenous, CONTINUOUS, Starting on Sat11/20/20 at 0930, Until Sat11/23/20 at 1232, Vial and Tubing should be changed and/or discarded every 12 hours., Titration Parameters: Standard Parameters, Indication: Sedation, Initiate infusion at: 5 mcg/kg/min, Titrate infusion by: 5 mcg/kg/min, Titrate every: 2 minutes, To maintain a RASS score of: -1 to -2 (Drowsy to light sedation), Notify physician if: Unachievable RASS goal despite max dose $ New Bag/Syringe 11/22/2020 1:56 PM CDT 30 mcg/kg/min 14.4 mL/hr Rate Change 11/22/2020 11:35 AM CDT 40 mcg/kg/min 19.2 mL/ hr $ New Bag/Syringe 11/22/2020 9:39 AM CDT 60 mcg/kg/min 28. 8 mL/hr senna (Senokot) tablet 8.6 mg 8.6 mg, Oral, DAILY, First dose on Sat11/25/20 at 0900, Until Discontinued $ Given 11/25/2020 8:31 AM CDT 8.6 mg sodium chloride (Inhalant) 7 % nebulizer solution 4 mL 4 mL, Inhalation, 2 TIMES DAILY, First dose on Sat11/21/20 at 0000, Until Discontinued $ Given 11/23/2020 10:27 PM CDT 4 mL $ Given 11/22/2020 1:14 PM CDT 4 mL $ Given 11/21/2020 11:12 PM CDT 4 mL sodium phosphate 30 mmol IVPB 260 mL 30 mmol, at 43.33 mL/hr, Administer over 6 Hours, Intravenous, ONCE, 1 dose, On Sat11/18/20 at 0230 $ New Bag/Syringe 11/18/2020 2:57 AM CDT 30 mmol 43.33 mL/hr sodium phosphate 40 mmol IVPB 263.3 mL 40 mmol, at 43.88 mL/hr, Administer over 6 Hours, Intravenous, ONCE, 1 dose, On Sat11/20/20 at 0300 $ New Bag/Syringe 11/20/2020 4:20 AM CDT 40 mmol 43.88 mL/hr succinylcholine (Anectine) injection 100 mg 100 mg, Intravenous, ONCE, 1 dose, On Sat11/20/20 at 0930 $ Given 11/20/2020 9:05 AM CDT 100 mg thiamine (Vitamin B-1) tablet 100 mg 100 mg, Oral, DAILY, 3 doses, First dose on Sat11/18/20 at 2045, Last dose on Sat11/20/20 at 0900 $ Given 11/20/2020 11:25 AM CDT 100 mg vancomycin (Vancocin) 1,500 mg in 500 mL NaCl IVPB 1,500 mg, at 333.33 mL/hr, Intravenous, EVERY 12 HOURS, First dose on Sat11/20/20 at 2300, Until Discontinued, Indication for anti-infective therapy: Suspected infection, Site of anti-infective therapy: Lower Respiratory $ New Bag/Syringe 11/21/2020 11:34 AM CDT 1,500 mg 333.33 mL/hr $ New Bag/Syringe 11/20/2020 11:29 PM CDT 1,500 mg 333.3 3 mL/hr vancomycin (Vancocin) 2,000 mg in 500 mL NaCl IVPB Premix 2,000 mg, at 250 mL/hr, Intravenous, ONCE, 1 dose, On [place] 11/20/20 at 1100, Indication for anti-infective therapy: Suspected infection, Site of anti-infective therapy: Lower Respiratory $ New Bag/Syringe 11/20/2020 11:43 AM CDT 2,000 mg 250 mL/hr documented in this encounter Active and Recently Administered Medications Times are shown in CDT. Scheduled Medication Order 11/24/2020 11/25/2020 11/26/2020 0.9% NaCl injection 3 mL(Linked Group 1) 3 mL, Intracatheter, EVERY 8 HOURS, First dose on Sat11/16/20 at 2200, Until Discontinued, Flush peripheral IV catheter with 3 mL of normal saline every 8 hours. 0554 ($ Given - Provider: Marcin Pulliam RN)1312 ($ Given - Provider: Olga Kelly RN)2034 ($ Given - Provider: Marcin Pulliam RN) 0549 ($ Given - Provider: Patty Sheth RN)1219 ($ Given - Provider: Donnell Whalen RN)2227 ($ Given - Provider: Noni King RN) 0526 ($ Given - Provider: Noni King RN) albuterol-ipratropium (Duo-Neb) nebulizer solution 3 mL 3 mL, Inhalation, EVERY 6 HOURS, First dose (after last modification) on Sat11/20/20 at 1800, Until Discontinued 0607 ($ Given - Provider: Bisi Wiseman RCP)1236 ($ Given - Provider: Emani Farmer RCP)1800 (Due) 0000 (Not Administered - Provider: Marcel Craven RCP - Reason: See Comments)0508 ($ Given - Provider: Marcel Craven RCP)1144 ($ Given - Provider: Alem Campuzano RCP)1724 ($ Given - Provider: Alem Campuzano RCP)2315 ($ Given - Provider: Marcel Craven RCP) 0506 ($ Given - Provider: Marcel Craven RCP) bacitracin topical ointment Topical, 2 TIMES DAILY, First dose on Sat11/21/20 at 2100, Until Discontinued, Apply to knees 0826 ($ Given - Provider: Olga Kelly RN) 0341 (Not Administered - Provider: Patty Sheth RN - Reason: Medication not available)0849 ($ Given - Provider: Donnell Whalen RN)2103 ($ Given - Provider: Noni King RN) 0917 ($ Given - Provider: Kali Morrison, RN) cefTRIAXone (Rocephin) syringe 2,000 mg 2,000 mg (2 g), Intravenous, EVERY 24 HOURS, First dose on Sat11/23/20 at 1315, Until Discontinued, Infuse over 3-5 minutes. Mix with 19.2 mL diluent for final concentration 2000 mg/20 mL., Indication for anti-infective therapy: Documented infection, Site of anti-infective therapy: Lower Respiratory 1233 ($ Given - Provider: Olga Kelly RN) 1216 ($ Given - Provider: Donnell Whalen RN) chlorhexidine (Peridex) 0.12 % oral solution 15 mL (CANCELED) 15 mL, Mouth/Throat, 2 TIMES DAILY, First dose on Sat11/16/20 at 2100, Until Discontinued, Swab oral mucosa for 30 seconds. Do not brush teeth immediately after use. . WASTE DISPOSAL INSTRUCTIONS: Black Bin Disposal required. 0826 (Not Administered - Provider: Olga Kelly RN - Reason: Patient Condition)2032 ($ Given - Provider: Marcin Pulliam RN) docusate sodium (Colace) capsule 100 mg 100 mg, Oral, 2 TIMES DAILY, First dose on Sat11/16/20 at 2345, Until Discontinued 0825 ($ Given - Provider: Olga Kelly RN)2030 ($ Given - Provider: Marcin Pulliam RN) 0829 ($ Given - Provider: Reshma Crespo)2100 ($ Given - Provider: Noni King, RN) 0915 ($ Given - Provider: Kali Morrison, RN) famotidine (Pepcid) tablet 20 mg (CANCELED) 20 mg, Enteral Tube, 2 TIMES DAILY, First dose on Sat11/23/20 at 2100, Until Discontinued 0825 ($ Given - Provider: Olga Kelly RN - Comment: given orally)2030 ($ Given - Provider: Marcin Pulliam RN - Comment: po) gabapentin (Neurontin) capsule 300 mg (CANCELED) 300 mg, Enteral Tube, 3 TIMES DAILY, First dose on Sat11/22/20 at 1100, Until Discontinued 0825 ($ Given - Provider: Olga Kelly RN - Comment: given orally)131 ($ Given - Provider: Olga Kelly RN - Comment: given orally)2030 ($ Given - Provider: Marcin Pulliam RN - Comment: po) 0829 (Canceled Entry - Provider: Reshma Crespo - Comment: PO)0849 ($ Given - Provider: Donnell Whalen RN - Comment: PO)1215 ($ Given - Provider: Donnell Whalen RN - Comment: PO)2225 (Not Administered - Provider: Noni King RN - Reason: Discontinued by physician) gabapentin (Neurontin) capsule 300 mg 300 mg, Oral, 3 TIMES DAILY, First dose (after last modification) on Sat11/26/20 at 0900, Until Discontinued 09 ($ Given - Provider: Kali Morrison, MARIAH) heparin injection 5,000 Units 5,000 Units, Subcutaneous, EVERY 8 HOURS, First dose on Sat11/18/20 at 0815, Until Discontinued 0558 ($ Given - Provider: Marcin Pulliam RN)1311 ($ Given - Provider: Olga Kelly RN)2034 ($ Given - Provider: Marcin Pulliam RN) 0549 ($ Given - Provider: Patty Sheth RN)1215 ($ Given - Provider: Donnell Whalen RN)2101 ($ Given - Provider: Noni King RN) 0526 ($ Given - Provider: Noni King RN) magnesium oxide (Mag-Ox) tablet 400 mg (COMPLETED) 400 mg, Oral, ONCE, 1 dose, On Sat11/25/20 at 0800 0831 ($ Given - Provider: Reshma Crespo) magnesium sulfate 2 g in 50 mL bolus (COMPLETED) 2 g, at 25 mL/hr, Administer over 120 Minutes, Intravenous, ONCE, 1 dose, On Sat11/24/20 at 0200, Infuse at 1 gm/hr 0259 ($ New Bag/Syringe - Provider: Marcin Pulliam RN)0400 (Current Rate - Provider: Marcin Pulliam RN)0459 (Stopped - Provider: Marcin Pulliam RN) multivitamin daily tablet 1 tablet 1 tablet, Oral, DAILY, First dose on Sat11/18/20 at 2045, Until Discontinued, . WASTE DISPOSAL INSTRUCTIONS: Black Bin Disposal required. 0825 ($ Given - Provider: Olga Kelly RN) 0831 ($ Given - Provider: Reshma Crespo) 0915 ($ Given - Provider: Kali Morrison RN) oxymetazoline (Afrin) 0.05 % nasal spray 1 spray 1 spray, Each Nostril, 2 TIMES DAILY, First dose on Sat11/24/20 at 2100, Until Discontinued, . WASTE DISPOSAL INSTRUCTIONS: Black Bin Disposal required. 2033 ($ Given - Provider: Marcin Pulliam RN)2034 ($ Given - Provider: Marcin Pulliam RN) 0850 ($ Given - Provider: Donnell Whalen RN)222 ($ Given - Provider: Noni King RN) 0900 (Due) potassium chloride ER (Klor-Con M) tablet 40 mEq (COMPLETED) 40 mEq, Oral, ONCE, 1 dose, On Sat11/25/20 at 0800, Do not crush or chew. 0831 ($ Given - Provider: Reshma Crespo) potassium phosphate 15 mmol in dextrose 5 % 250 mL bolus (COMPLETED) 15 mmol, at 62.5 mL/hr, Administer over 4 Hours, Intravenous, ONCE, 1 dose, On Sat11/24/20 at 0200, 3 mmol phosphate = 4.4 mEq potassium 0301 ($ New Bag/Syringe - Provider: Marcin Pulliam RN)0302 (Current Rate - Provider: Marcin Pulliam RN)0400 (Current Rate - Provider: Marcin Pulliam RN)0529 (Paused - Provider: Marcin Pulliam RN)0552 (Restarted - Provider: Marcin Pulliam RN)0600 (Current Rate - Provider: Marcin Pulliam RN)0753 (Stopped - Provider: Olga Kelly RN) senna (Senokot) tablet 8.6 mg 8.6 mg, Oral, DAILY, First dose on Sat11/25/20 at 0900, Until Discontinued 0831 ($ Given - Provider: Reshma Crespo) 0915 (Not Administered - Provider: Kali Morrison RN - Reason: Refused-Patient) PRN Medication Order 11/24/2020 11/25/2020 11/26/2020 0.9% NaCl injection 1-10 mL(Linked Group 1) 1-10 mL, Intracatheter, PRN, Other, peripheral line flush, Starting on Sat11/16/20 at 1851, Until 11/26/20 at 1238, Flush peripheral IV catheter with 1-10 mL of normal saline before and after medications and prn to clear blood from the line or to verify patency. acetaminophen (Tylenol) tablet 650 mg 650 mg, Oral, EVERY 4 HOURS PRN, Fever, Starting on Sat11/23/20 at 1946, Until 11/26/20 at 1238 0931 ($ Given - Provider: Reshma Crespo) bisacodyl (Dulcolax) suppository 10 mg 10 mg, Rectal, DAILY PRN, Constipation, Starting on Sat11/16/20 at 2309, Until 11/26/20 at 1238 labetalol (Normodyne; Trandate) injection 20 mg 20 mg, Intravenous, EVERY 2 HOURS PRN, SBP greater than 170 mmHg, Hold for HR < 60, Starting on Sat11/18/20 at 2147, Until 11/26/20 at 1238, Max IV dose is 300mg/24 hours. LORazepam (Ativan) injection 2 mg(Linked Group 2) 2 mg, Intravenous, EVERY 4 HOURS PRN, Anxiety, CIWA score 8-14, Starting on Sat11/18/20 at 2014, Until 11/26/20 at 1238, Administer IV if oral route is unavailable or not tolerated. Repeat CIWA-Ar 1 hour after every dose and repeat dose if CIWA-Ar score remains greater than 8. Notify physician if more than 1 repeated dose is needed. LORazepam (Ativan) tablet 2 mg(Linked Group 2) 2 mg, Oral, EVERY 4 HOURS PRN, Anxiety, CIWA score 8-14, Starting on Sat11/18/20 at 2014, Until 11/26/20 at 1238, Repeat CIWA-Ar 1 hour after every dose and repeat dose if CIWA-Ar score remains greater than 8. Notify physician if more than 1 repeated dose is needed. methocarbamol (Robaxin) tablet 750 mg 750 mg, Oral, EVERY 6 HOURS PRN, Muscle Spasms, Starting on Sat11/25/20 at 2148, Until 11/26/20 at 1238 oxyCODONE (immediate release) (Roxicodone) tablet 10 mg 10 mg, Oral, EVERY 4 HOURS PRN, Severe Pain, Starting on Sat11/25/20 at 2148, Until 11/26/20 at 1238 oxyCODONE (immediate release) (Roxicodone) tablet 5 mg 5 mg, Oral, EVERY 4 HOURS PRN, Moderate Pain, Starting on Sat11/25/20 at 2148, Until 11/26/20 at 1238 Linked Groups Order Group 1: SALINE LOCK, INSERT AND MAINTAIN (CANCELED) Routine, CONTINUOUS, Starting on Sat11/16/20 at 1900, Until Specified, New collection, Task Completed: Yes And 0.9% NaCl injection 3 mLJump to med 3 mL, Intracatheter, EVERY 8 HOURS, First dose on Sat11/16/20 at 2200, Until Discontinued, Flush peripheral IV catheter with 3 mL of normal saline every 8 hours. And 0.9% NaCl injection 1-10 mLJump to med 1-10 mL, Intracatheter, PRN, Other, peripheral line flush, Starting on Sat11/16/20 at 1851, Until 11/26/20 at 1238, Flush peripheral IV catheter with 1-10 mL of normal saline before and after medications and prn to clear blood from the line or to verify patency. Group 2: LORazepam (Ativan) tablet 2 mgJump to med 2 mg, Oral, EVERY 4 HOURS PRN, Anxiety, CIWA score 8-14, Starting on Sat11/18/20 at 2013, Until 11/26/20 at 1238, Repeat CIWA-Ar 1 hour after every dose and repeat dose if CIWA-Ar score remains greater than 8. Notify physician if more than 1 repeated dose is needed. Or LORazepam (Ativan) injection 2 mgJump to med 2 mg, Intravenous, EVERY 4 HOURS PRN, Anxiety, CIWA score 8-14, Starting on Sat11/18/20 at 2013, Until 11/26/20 at 1238, Administer IV if oral route is unavailable or not tolerated. Repeat CIWA-Ar 1 hour after every dose and repeat dose if CIWA-Ar score remains greater than 8. Notify physician if more than 1 repeated dose is needed. documented in this encounter Additional Health Concerns Infection Onset Date Last Indicated Resolved Time COVID-19 Under Investigation 11/16/2020 11/16/2020 11/16/2020 8:54 PM CDT COVID-19 Under Investigation 11/21/2020 11/21/2020 11/21/2020 5:59 PM CDT documented as of this encounter
--- OUTSIDE RECORDS SUMMARY | 2024-05-12 04:21 | XMS_ITS | Encounter Summary ---
Author Organization [facility] Address [address] [place] [address] Care Team Providers Care Product Manager [employer] Name Role Phone Unavailable Primary Care Provider Unavailabl e Reason for Referral * Radiology Services (Routine) - Closed Specialty Diagnoses / Procedures Referred By Contac t Referred To Contact CT Scan Diagnoses Trauma Procedures CT HEAD WO CONTRAST Latonya Morales APRN-CNP [address] [facility] [address] [place] [address] [place] [address] Referral ID Status Reason Start Date Expiration Date Visits Re quested Visits Authorized [id number] Closed 12/22/2020 03/22/2021 1 1 Reason for Visit * Radiology Services (Routine) - Closed Specialty Diagnoses / Procedures Referred By Contac t Referred To Contact CT Scan Diagnoses Trauma Procedures CT HEAD WO CONTRAST Latonya Morales APRN-CNP [address] [facility] [address] [place] [address] [facility] [place] [address] Referral ID Status Reason Start Date Expiration Date Visits Re quested Visits Authorized [id number] Closed 12/22/2020 03/22/2021 1 1 Encounter Details Date Type Department Care Team (Latest Contact Info) Description 01/02/2021 1:35 PM CDT - 01/02/2021 11:59 PM CDT Hospital Encounter [facility] CAT SCAN [address] [place] [id number] Latonya Morales, PLASTIC WELDER-ADMINISTRATION MANAGER [address] [facility] [address] [place] [id number] Discharge Disposition: Home or Self Care Social [...] No 11/26/2020 documented as of this encounter Medications at Time of Discharge [...] (one) tablet by mouth once daily 11/26/2020 documented as of this encounter Plan of Treatment Not on file documented as of this encounter Procedures Procedure Name Priority Date/Time Associated Diagnosis Comments CT HEAD WO CONTRAST Routine 01/02/2021 1 :41 PM CDT Trauma documented in this encounter Results * CT HEAD WO CONTRAST (01/02/2021 1:41 PM CDT) Anatomical Region Laterality Modality Head Computed Tomogra phy 01/02/2021 1:46 PM CDT Impressions 01/02/2021 3:29 PM CDT IMPRESSION: 1.Interval resolution of previously seen intracranial and subarachnoid hemorrhages. 2.No new acute intracranial hemorrhage. 3.No midline shift or significant mass effect. Report dictated by Asher Hameed MD (limited radiology technician). This report was approved ??by Asher Hameed [...] effect. Report dictated by Asher Hameed MD (limited radiology technician). This report was approved by Asher Hameed on 01/02/2021 3:29 PM . IDr. NURY have personally reviewed and interpreted this examination/study. This report was electronically signed by NURY KAY on01/02/2021 3:29 PM . Latonya Morales APRN-ADMINISTRATION MANAGER CT ORDERABLES documented in this encounter Visit Diagnoses Diagnosis Trauma Injury, other and unspecified, unspecified site documented in this encounter
== END 2024-05-06 12:35 | disposition home or self-care (01) ==
LOC: ANHSURGERY 06:27 → ANH3MEDSUR 14:10
PROVIDERS: Physician Assistant Surgical; PCP Family Medicine; Visit Provider Orthopaedic Surgery
PROC: (CPT 27447; principal; 2024-05-05 08:30)
DX: M17.12 Unilateral primary osteoarthritis, left knee (principal); I10 Essential (primary) hypertension; F12.90 Cannabis use, unspecified, uncomplicated; E66.9 Obesity, unspecified; Z68.30 Body mass index [BMI] 30.0-30.9, adult
CPT/HCPCS: 27447; 36415; 73560; 80048; 85025; 86850; 86900; 86901; 97110; 97116; 97161; 97165; 97530; 97535; A9270; C1713; C1776; J0171; J0690; J1100; J1885; J2250; J2270; J2405; J2704; J2795; J3010; J3370; J7120